=== PATIENT | female | born 1935 | race Caucasian/White ===

== ENCOUNTER 2016-06-29 13:02 | Emergency (ER) | payer OTHER, BC ==
[~2016-06-29] VITALS: Ht 157.5 cm; Wt 48.6 kg
[~2016-06-29 13:02] MED LIST: ACET-1256 PO; CALCTAB7 PO; CHLO10CA7 PO; CHOL100027 PO; DOCU-94 PO; LEVO88TA3 PO; ONDA8TAB6 PO; OXYC15TA89 PO; PROM25TA9 PO; RISE150T PO; SIMV10TA2 PO
[2016-06-29 13:10] VITALS: TEMP 36.4; Ht 157.5 cm; Wt 48.6 kg
[2016-06-29] MEDS ORDERED: ONDANSETRON INJ 2 MG/ML 2 ML VIAL IV STA (13:13)
[2016-06-29] MEDS ORDERED: MoRPHine SULFATE 2 MG/ML CARP IV STA ×3 (13:13→15:24)
[2016-06-29] MEDS ORDERED: LORA-741 PO (13:20)
[2016-06-29] MEDS ORDERED: LEVE500T13 PO (13:21)
[2016-06-29] MEDS ORDERED: ENOX80IN SQ (13:21)
[2016-06-29 13:42] LABS: BASO % 0.3 %; BASO ABS # 0.01 K/uL (0-0.2); COMPLETE YES; EOS % 0.9 %; HEMATOCRIT 37.9 % (37-47); IG% 0.6 %; LYMPH % 21.3 %; LYMPH ABS # 0.71 K/uL (1.2-3.4); MEAN CELL VOLUME 95.5 fL (80-100); MEAN CORPUSCULAR HGB CONC 34.6 g/dl (32-36); MEAN PLATELET VOLUME 8.7 fL (7.4-10.4); MONO % 7.5 %; NEUT % 69.4 %; PLATELET COUNT 110 K/uL (130-400); RED BLOOD COUNT 3.97 M/uL (4.2-5.4); WHITE BLOOD COUNT 3.34 K/uL (4.8-10.8)
[2016-06-29 14:07] LABS: PARTIAL THROMBOPLASTIN RATIO 0.7; PROTHROMBIN TIME (PATIENT) 11.1 SECONDS (9.0-12.0)
[2016-06-29 14:13] LABS: BUN/CREATININE RATIO 10.8 (10-20); CALCIUM 9.3 mg/dl (8.5-10.1); CREATININE 0.88 mg/dl (0.60-1.20); POTASSIUM 3.6 mmol/L (3.5-5.1)
--- NOTE | 2016-06-29 14:34 | DIAGNOSTIC IMAGING REPORT ---
RIGHT SHOULDER 2 VIEWS HISTORY: Right shoulder pain. COMPARISON: Right shoulder 10/10/2015. FINDINGS: There is impacted and mildly displaced right humeral neck fracture. No dislocation. No fractures within the right clavicle. The scapula appears intact. There is a grade II right acromioclavicular separation, unchanged. Soft tissues are unremarkable. No radiopaque foreign bodies. IMPRESSION: An impacted and mildly displaced right humeral neck fracture. Electronically signed by: Eron De Anda M.D. 06/29/2016 2:32 PM Dictated Date/Time: 06/29/2016 2:30 PM
--- NOTE | 2016-06-29 14:36 | DIAGNOSTIC IMAGING REPORT ---
RIGHT ELBOW 2 VIEWS HISTORY: Right elbow pain. Trauma. COMPARISON: Right elbow 02/07/2016. FINDINGS: There is extensive orthopedic hardware throughout the right elbow resulting in suboptimal evaluation. The hardware appears intact. There is also suboptimal positioning of the patient. No definite acute fracture or dislocation. Evaluation for an elbow effusion is nondiagnostic. Soft tissues are unremarkable. IMPRESSION: 1. Extensive orthopedic hardware and suboptimal patient positioning resulting in difficult evaluation of the right elbow. 2. No definite acute fracture or dislocation. 3. The hardware appears intact. Electronically signed by: Eron De Anda M.D. 06/29/2016 2:34 PM Dictated Date/Time: 06/29/2016 2:32 PM
[2016-06-29] MEDS ORDERED: OXYC1TAB3 PO (15:27)
--- NOTE | 2016-06-29 16:10 | DIAGNOSTIC IMAGING REPORT ---
RIGHT WRIST MIN 3 VIEWS ROUTINE CLINICAL HISTORY: Right wrist pain. Evaluate for fracture. COMPARISON: Right wrist radiographs February 07, 2016. FINDINGS: A distal right radial plate and screws are noted. Postoperative appearance is unchanged. There is no acute fracture. Deformity of the distal right ulna is chronic. Carpal bones are intact. Moderate degenerative changes are noted within several articulations of the right wrist. IMPRESSION: 1. No acute fracture or dislocation of the right wrist. 2. Stable postoperative findings following distal right radial internal fixation. Electronically signed by: Cruz Lake M.D. 06/29/2016 4:08 PM Dictated Date/Time: 06/29/2016 4:05 PM
[2016-06-29] MEDS ORDERED: OXYCODONE IR HOME PACK PO ONE (16:45)
[2016-06-29 16:52] VITALS: BP 169/72; PULSE 90; O2SAT 96
--- NOTE | 2016-06-29 19:35 | EMERGENCY ROOM VISIT NOTE ---
History Report prepared by Waldemar: Alyse Yoder Under the Supervision of: Dr. Gallo Hay M.D. First contact with patient: 13:05 Stated Complaint: FALL - R SHOULDER PAIN History of Present Illness The patient is a 80 year old female who presents to the Emergency Room with complaints of a sudden fall that occurred [employer]. The patient came to the ED via ambulance from home. The patient's states that the patient tripped over the dog bed. The patient states that she fell on her right side with her right arm extended. She is experiencing pain throughout her right arm. She denies hitting her head along with LOC, neck pain, back pain, chest pain, shortness of breath, abdominal pain, and hip or leg pain. She states that she has experienced previous problems with her right arm in the past. The patient is on Lovenox shots. Her states that she is receiving treatment for brain cancer. The patient went through chemotherapy and radiation for the brain cancer but it did not help so she started a new medication for the cancer. The patient denies any recent problems with weakness due to the brain cancer. She also denies any recent illness. Source of History: patient, family Onset: [employer] Position: other (generalized) Quality: other (fall) Timing: other (sudden) Associated Symptoms: No LOC, No SOB, No abdominal pain, No back pain, No chest pain, No neck pain Note: right arm pain, no hip or leg pain Review of Systems See HPI for pertinent positives & negatives. A total of 10 systems reviewed and were otherwise negative. Past Medical & Surgical Medical Problems: (1) Arm fracture, right (2) Elevated cholesterol (3) Hypothyroidism (4) Osteoarthritis (5) Osteoporosis (6) Swelling of left hand Surgical Problems: (1) S/P wrist surgery Old medical records were reviewed. Nurse's notes were reviewed and I agree with. Family History Patient reports no known family medical history. Social History Smoking Status: Never Smoker Alcohol Use: none Marital Status: Housing Status: lives with significant other Occupation Status: retired Current/Historical Medications Scheduled Calcium Carbonate-Vitamin D W/ (Caltrate 600 Plus), 1 TAB PO DAILY Cholecalciferol (Vitamin D 1000 Unit), 1,000 INTER.UNIT PO DAILY Enoxaparin (Lovenox), 80 MG SQ Q24H Levetiracetam (Keppra), 500 MG PO BID Levothyroxine Sodium (Levothyroxine Sodium), 88 MCG PO DAILY Risedronate Sodium (Actonel), 150 MG PO MONTHLY Simvastatin (Zocor), 10 MG PO QPM Scheduled PRN Lorazepam (Ativan), 0.5 MG PO DAILY PRN for Anxiety Oxycodone Ir (Roxicodone Ir), 1 TAB PO Q4H PRN for Severe Pain Allergies Coded Allergies: Lactose (Unverified Allergy, Unknown, ., 06/29/16) Penicillins (Unverified Allergy, Unknown, ., 06/29/16) Sulfamethoxazole w/Trimethoprim (Verified Adverse Reaction, Unknown, nausea, 06/29/16) allscripts Uncoded Allergies: ENTEX (Adverse Reaction, Unknown, nausea, 09/12/15) allscripts Physical Exam Vital Signs Date Time Temp Pulse Resp B/P Pulse Ox O2 Delivery O2 Flow Rate FiO2 06/29/16 16:52 90 18 169/72 96 06/29/16 15:35 82 20 152/77 94 Room Air 06/29/16 13:10 36.4 92 20 150/76 94 Room Air Physical Exam General: Well developed well nourished slender older female complaining of right shoulder pain but otherwise in no acute distress, breathing comfortably on room air. Normal speech HEENT: Normal cephalic atraumatic. Pupils are equal round and reactive to light. Scelera anicteric. Extraocular movements are intact. Oropharynx is pink with moist mucous membranes. No swelling of the mouth lips or tongue. Neck: Supple with a midline trachea. No meningeal signs or stiffness, no JVD or bruits. No Stridor. Chest: Clear to auscultation bilaterally. No wheezes or rhonchi. No increased work of breathing. Heart: regular rate and rhythm. Abdomen: Soft nontender, nondistended without rebound guarding or rigidity. Extremities: Right shoulder is swollen, scars on right elbow from previous trauma/surgery, normal motor sensation in right hand and wrist. No cyanosis or clubbing. No calf tenderness or assymetry Spine/Back. Non tender to palpation. No CVA tenderness Skin: Good turgor without rashes. Neurologic exam: Cranial nerves two through 12 are intact. Motor and sensation are intact and symmetrical throughout. Medical Decision & Procedures ER Provider Diagnostic Interpretation: X-ray results as stated below per interpretation by me and the radiologist: RIGHT SHOULDER 2 VIEWS IMPRESSION: An impacted and mildly displaced right humeral neck fracture. Electronically signed by: Eron De Anda M.D. 06/29/2016 2:32 PM Dictated Date/Time: 06/29/2016 2:30 PM RIGHT ELBOW 2 VIEWS IMPRESSION: 1. Extensive orthopedic hardware and suboptimal patient positioning resulting in difficult evaluation of the right elbow. 2. No definite acute fracture or dislocation. 3. The hardware appears intact. Electronically signed by: Eron De Anda M.D. 06/29/2016 2:34 PM Dictated Date/Time: 06/29/2016 2:32 PM RIGHT WRIST MIN 3 VIEWS ROUTINE IMPRESSION: 1. No acute fracture or dislocation of the right wrist. 2. Stable postoperative findings following distal right radial internal fixation. Electronically signed by: Cruz Lake M.D. 06/29/2016 4:08 PM Dictated Date/Time: 06/29/2016 4:05 PM Laboratory Results 06/29/16 13:32 Red Blood Count 3.97, Mean Corpuscular Volume 95.5, Mean Corpuscular Hemoglobin 33.0, Mean Corpuscular Hemoglobin Concent 34.6, Mean Platelet Volume 8.7, Neutrophils (%) (Auto) 69.4, Lymphocytes (%) (Auto) 21.3, Monocytes (%) (Auto) 7.5, Eosinophils (%) (Auto) 0.9, Basophils (%) (Auto) 0.3, Neutrophils # (Auto) 2.32, Lymphocytes # (Auto) 0.71, Monocytes # (Auto) 0.25, Eosinophils # (Auto) 0.03, Basophils # (Auto) 0.01 06/29/16 13:32 Test 06/29/16 13:32 White Blood Count 3.34 K/uL (4.8-10.8) Red Blood Count 3.97 M/uL (4.2-5.4) Hemoglobin 13.1 g/dL (12.0-16.0) Hematocrit 37.9 % (37-47) Mean Corpuscular Volume 95.5 fL (80-100) Mean Corpuscular Hemoglobin 33.0 pg (25-34) Mean Corpuscular Hemoglobin Concent 34.6 g/dl (32-36) Platelet Count 110 K/uL (130-400) Mean Platelet Volume 8.7 fL (7.4-10.4) Neutrophils (%) (Auto) 69.4 % Lymphocytes (%) (Auto) 21.3 % Monocytes (%) (Auto) 7.5 % Eosinophils (%) (Auto) 0.9 % Basophils (%) (Auto) 0.3 % Neutrophils # (Auto) 2.32 K/uL (1.4-6.5) Lymphocytes # (Auto) 0.71 K/uL (1.2-3.4) Monocytes # (Auto) 0.25 K/uL (0.11-0.59) Eosinophils # (Auto) 0.03 K/uL (0-0.5) Basophils # (Auto) 0.01 K/uL (0-0.2) RDW Standard Deviation 49.1 fL (36.4-46.3) RDW Coefficient of Variation 14.2 % (11.5-14.5) Immature Granulocyte % (Auto) 0.6 % Immature Granulocyte # (Auto) 0.02 K/uL (0.00-0.02) Prothrombin Time 11.1 SECONDS (9.0-12.0) Prothromb Time International Ratio 1.0 (0.9-1.1) Activated Partial Thromboplast Time 18.3 SECONDS (21.0-31.0) Partial Thromboplastin Ratio 0.7 Anion Gap 9.0 mmol/L (3-11) Est Creatinine Clear Calc Drug Dose 38.5 ml/min Estimated GFR () 71.4 Estimated GFR (Non- 61.6 BUN/Creatinine Ratio 10.8 (10-20) Calcium Level 9.3 mg/dl (8.5-10.1) Laboratory studies as stated above per my review. Medications Administered Medications (Trade) Dose Ordered Sig/Wilver Route Start Time Stop Time Status Last Admin Dose Admin Ondansetron HCl (Zofran Inj) 4 mg NOW STAT IV 06/29/16 13:13 06/29/16 13:17 DC 06/29/16 13:24 4 MG Morphine Sulfate (MoRPHine SULFATE INJ) 2 mg NOW STAT IV 06/29/16 13:13 06/29/16 13:17 DC 06/29/16 13:24 2 MG Morphine Sulfate (MoRPHine SULFATE INJ) 2 mg NOW STAT IV 06/29/16 14:09 06/29/16 14:10 DC 06/29/16 14:17 2 MG Morphine Sulfate (MoRPHine SULFATE INJ) 2 mg NOW STAT IV 06/29/16 15:24 06/29/16 15:25 DC 06/29/16 15:36 2 MG Oxycodone HCl (Roxicodone Immediate Rel 5MG Home Pack) 1 homepack UD ONCE PO 06/29/16 16:45 06/29/16 16:46 DC 06/29/16 16:45 1 HOMEPACK ED Course 1307: Past medical records reviewed. The patient was evaluated in room B9, and a complete history and physical examination were performed. 1313: Ordered Morphine Sulfate 2 mg IV, Zofran 4 mg IV 1340: I went to reassess the patient, but she was receiving x-rays at this time. 1350: I looked at the patient's x-rays and reassessed her. It looks like she has a fracture of her humeral neck. 1408: The nurse informed me that the patient would like more pain medicine. 1409: Ordered Morphine Sulfate 2 mg IV 1444: I reassessed the patient. She appears to be more comfortable. 1452: I discussed the patient's case with Dr. Garcia - Orthopedics. He recommended pain management and follow-up. 1523: Upon reevaluation, the patient is doing well. 1524: Ordered Morphine Sulfate 2 mg IV 1645: Ordered Oxycodone HCl 1 homepack PO 1636: Upon reevaluation, the patient is doing well. I discussed the results and treatment plan with her. She verbalized agreement of the treatment plan. The patient was discharged home. Medical Decision Differentials include, but are not limited to; elbow fracture, elbow dislocation , shoulder fracture, shoulder dislocation, contusion. This patient comes in as described above. She was placed in room B9. She is here for treatment and evaluation of right shoulder pain after falling. She is tender along her shoulder. She also has a lot of chronic pain in this arm related the elbow and wrist. She's had extensive surgery done by Dr. Urbina at [facility]. She says that she is scheduled to have additional surgery however they've had to hold off because she is currently on chemotherapy and cannot have surgery while she is on that. She has another 2 weeks of chemotherapy. This clearly was a mechanical fall. IV access was established. She was given morphine 2 mg IV and Zofran 4 g IV. She did receive additional doses of morphine while she was here she seemed to be doing much better she was placed in a sling with a strap. X-rays show a comminuted minimally displaced fracture of the humeral neck. It is not dislocated. The elbow and wrist do not show any acute fractures she does have chronic hardware. She was placed in a sling and this caused her wrist to have more pains so we did put her in a wrist lacer as well she seems comfortable with this. I think that this injury will unlikely needs surgery however I told her to follow up with orthopedist. I discussed the case with Dr. Garcia, who agrees. The patient has been seen by past by [facility] orthopedics and told her to follow- up with them in 1-2 days for recheck. They can also coordinate with her orthopedic surgeon and Deepthi if she were to need further care. The mainstay of care is going to be pain management. I did give her OxyIR 5 mg and given her weight, I told her start one half a pill every 4-6 hours. She should be extremely careful after taking as can make her drowsy and do not take with alcohol other stated medications. She could take up to 1 pill every 4-6 hours but again be very careful. She is to return if: numbness or weakness, worsening of symptoms, fever chills, any new problems or concerns . At this point, she has no evidence of neurovascular compromise or compartment syndrome. I encouraged her to follow up with her orthopedist in 1-2 days for recheck. The patient and the family are happy with the plan and she was discharged to home. Consults Time Called: [phone] Consulting Physician: Dr. Jose Young [facility] Returned Call: [phone] I discussed the patient's case with Dr. Jose Barbour. He recommended pain management and follow-up. Impression Primary Impression: Fracture of neck of humerus Scribe Attestation The scribe's documentation has been prepared under my direction and personally reviewed by me in its entirety. I confirm that the note above accurately reflects all work, treatment, procedures, and medical decision making performed by me. Departure Information Dispostion Home / Self-Care Prescriptions Oxycodone Ir (Roxicodone Ir) 5 Mg Tab 1 TAB PO Q4H Y for Severe Pain, #24 TAB Prov: Gallo Hay M.D. 06/29/16 Referrals Jack Gonzales M.D. (PCP) Forms HOME CARE DOCUMENTATION FORM, IMPORTANT VISIT INFORMATION Additional Instructions Rest. Drink plenty of fluids. Wear sling and swath Use OxyIR one half to one pill every 4-6 hours as needed OxyIR may make you drowsy be extremely careful getting up and down. Do not take with alcohol or sedating medications Follow up with [facility] orthopedics tomorrow and also your regular doctor. Return if: increasing pain, worsening of symptoms, numbness or weakness, any new problems or concerns.
[2016-07-13] MEDS ORDERED: CPR500 PO (08:58)
[2016-10-05] MEDS ORDERED: ZTHM250 PO (12:20)
[2016-10-05] MEDS ORDERED: GFNSR600 PO (12:20)
[2016-10-05] MEDS ORDERED: NUTR-977 PO (12:20)
[2016-10-05] MEDS ORDERED: VNTHFA/IN INH (12:20)
[2016-10-05] MEDS ORDERED: CEFD1CAP14 PO (12:20)
[2016-10-05] MEDS ORDERED: ENOX80IN SQ (12:20)
[2016-11-18] MEDS ORDERED: VTMB12 PO (09:52)
[2016-11-18] MEDS ORDERED: SRQ25 PO (09:52)
== END 2016-06-29 16:59 | disposition home or self-care (01) ==
LOC: EDBD 13:02 → C.EDB 13:04
DX: S42.211A Unspecified displaced fracture of surgical neck of right humerus, initial encounter for closed fracture (principal); W01.0XXA Fall on same level from slipping, tripping and stumbling without subsequent striking against object, initial encounter; Y92.019 Unspecified place in single-family (private) house as the place of occurrence of the external cause; C71.9 Malignant neoplasm of brain, unspecified; E78.00 Pure hypercholesterolemia, unspecified; E03.9 Hypothyroidism, unspecified; M81.0 Age-related osteoporosis without current pathological fracture; M19.90 Unspecified osteoarthritis, unspecified site; Z79.899 Other long term (current) drug therapy

== ENCOUNTER 2016-07-01 05:31 | Inpatient (IN) | payer OTHER, BC ==
[~2016-07-01] VITALS: Ht 162.6 cm; Wt 45.5 kg
[~2016-07-01 05:31] MED LIST changes: -ACET-1256 PO; -CHLO10CA7 PO; -DOCU-94 PO; +ENOX80IN SQ; +LEVE500T13 PO; +LORA-741 PO; -ONDA8TAB6 PO; -OXYC15TA89 PO; +OXYC1TAB3 PO; -PROM25TA9 PO
--- NOTE | 2016-07-01 05:47 | EMERGENCY ROOM VISIT NOTE ---
History Report prepared by Waldemar: Darlyn Zhao Under the Supervision of: Dr. Wilbert Franco M.D. First contact with patient: 05:32 Chief Complaint: SHOULDER PAIN Stated Complaint: SHOULDER PAIN History of Present Illness The patient is a 80 year old female who presents to the Emergency Room with complaints of severe and persistent weakness occurring today. The patient fell down 2 days ago and fractured her right humerus. Today, the patient had difficulty getting up from the toilet due to weakness. She also complains of severe pain in right shoulder and right arm. She took pain medicine with relief. The patient denies chest pain, shortness of breath, or any other complaints. Source of History: patient Onset: today Position: other (global) Symptom Intensity: severe Quality: other (weakness) Timing: other (persistent) Associated Symptoms: No SOB, No chest pain Review of Systems See HPI for pertinent positives & negatives. A total of 10 systems reviewed and were otherwise negative. Past Medical & Surgical Medical Problems: (1) Arm fracture, right (2) Elevated cholesterol (3) Hypothyroidism (4) Osteoarthritis (5) Osteoporosis (6) Swelling of left hand Surgical Problems: (1) S/P wrist surgery Family History Patient reports no known family medical history. Social History Smoking Status: Never Smoker Alcohol Use: none Marital Status: Housing Status: lives with significant other Occupation Status: retired Current/Historical Medications Scheduled Calcium Carbonate-Vitamin D W/ (Caltrate 600 Plus), 1 TAB PO DAILY Cholecalciferol (Vitamin D 1000 Unit), 1,000 INTER.UNIT PO DAILY Enoxaparin (Lovenox), 80 MG SQ Q24H Levetiracetam (Keppra), 500 MG PO BID Levothyroxine Sodium (Levothyroxine Sodium), 88 MCG PO DAILY Risedronate Sodium (Actonel), 150 MG PO MONTHLY Simvastatin (Zocor), 10 MG PO QPM Scheduled PRN Lorazepam (Ativan), 0.5 MG PO DAILY PRN for Anxiety Oxycodone Ir (Roxicodone Ir), 5 MG PO Q4H PRN for Severe Pain Allergies Coded Allergies: Lactose (Unverified Allergy, Unknown, ., 07/01/16) Penicillins (Unverified Allergy, Unknown, ., 07/01/16) Sulfamethoxazole w/Trimethoprim (Verified Adverse Reaction, Unknown, nausea, 07/01/16) allscripts Uncoded Allergies: ENTEX (Adverse Reaction, Unknown, nausea, 09/12/15) allscripts Physical Exam Vital Signs Date Time Temp Pulse Resp B/P Pulse Ox O2 Delivery O2 Flow Rate FiO2 07/01/16 07:42 93 18 160/73 96 Room Air 07/01/16 05:46 95 07/01/16 05:33 36.9 95 18 154/95 96 Room Air Physical Exam GENERAL: Patient is chronically unwell appearing and in no acute distress. HEENT: No acute trauma, normocephalic atraumatic, mucous membranes moist, no nasal congestion, no scleral icterus. NECK: No stridor, no adenopathy, no meningismus, trachea is midline. LUNGS: No dyspnea. Clear to auscultation and equal bilaterally. No wheeze, no rhonchi. HEART: Regular rate and rhythm. No murmurs, rubs, gallops appreciated. ABDOMEN: Soft, nontender, bowel sounds positive, no masses appreciated, no peritonitis. BACK: No midline tenderness, no CVA tenderness EXTREMITIES: Normal motion all extremities, no cyanosis, no edema. She has large amount of bruising of the right lower humerus, distal N/V intact. Pain with range of motion of the right shoulder. NEUROLOGIC: Alert and oriented, mildly confused but at baseline according to daughter, no acute motor or sensory deficits, no focal weakness, cranial nerves grossly intact. SKIN: No rash, no jaundice, no diaphoresis. Medical Decision & Procedures ER Provider Diagnostic Interpretation: X ray results and stated below per my interpretation and radiologist interpretation. CT results and stated below per my review and radiologist interpretation: CHEST ONE VIEW PORTABLE CLINICAL HISTORY: Generalized Weakness COMPARISON STUDY: 04/17/2014 FINDINGS: The patient is hyperinflated. The heart is normal in size. There is no failure. There is no focal pulmonary consolidation. There is a calcified granuloma the left lung base.[ No pleural effusions are visualized. There is widening of the right AC joint, likely postsurgical or posttraumatic. IMPRESSION: Hyperinflation. No acute findings. Electronically signed by: Corby Kee M.D. 07/01/2016 6:35 AM Dictated Date/Time: 07/01/2016 6:[address] HEAD WITHOUT CONTRAST (CT) CLINICAL HISTORY: Generalized Weakness COMPARISON STUDY: MRI dated 11/08/2015 TECHNIQUE: Axial CT of the brain is performed from the vertex to the skull base. IV contrast was not administered for this examination. CT DOSE: 614.27 mGy.cm FINDINGS: There are postsurgical changes of a right temporal craniotomy. There is a small right temporal extra-axial fluid collection which is felt to be chronic. There is right temporal lobe encephalomalacia. There is no CT evidence of acute cortical infarction. There is no midline shift. There is no acute hemorrhage. There is subtle right temporal lobe hypodensity. There are patchy white matter hypodensities likely on a small vessel basis. There is no evidence of pathologic ventricular dilatation. There is no evidence of acute sinusitis IMPRESSION: Interval resection of the right temporal lobe mass. There is right temporal lobe encephalomalacia and subtle hypodensity within the right temporal lobe. To evaluate for tumor recurrence, an MRI would be recommended in follow-up. Electronically signed by: Corby Kee M.D. 07/01/2016 6:38 AM Dictated Date/Time: 07/01/2016 6:35 AM Laboratory Results 07/01/16 06:00 Red Blood Count 3.25, Mean Corpuscular Volume 94.5, Mean Corpuscular Hemoglobin 33.2, Mean Corpuscular Hemoglobin Concent 35.2, Mean Platelet Volume 8.8, Neutrophils (%) (Auto) 75.3, Lymphocytes (%) (Auto) 9.5, Monocytes (%) (Auto) 13.3, Eosinophils (%) (Auto) 0.6, Basophils (%) (Auto) 0.2, Neutrophils # (Auto ) 3.95, Lymphocytes # (Auto) 0.50, Monocytes # (Auto) 0.70, Eosinophils # (Auto ) 0.03, Basophils # (Auto) 0.01 07/01/16 06:00 Test 07/01/16 06:00 07/01/16 07:35 White Blood Count 5.25 K/uL (4.8-10.8) Red Blood Count 3.25 M/uL (4.2-5.4) Hemoglobin 10.8 g/dL (12.0-16.0) Hematocrit 30.7 % (37-47) Mean Corpuscular Volume 94.5 fL (80-100) Mean Corpuscular Hemoglobin 33.2 pg (25-34) Mean Corpuscular Hemoglobin Concent 35.2 g/dl (32-36) Platelet Count 104 K/uL (130-400) Mean Platelet Volume 8.8 fL (7.4-10.4) Neutrophils (%) (Auto) 75.3 % Lymphocytes (%) (Auto) 9.5 % Monocytes (%) (Auto) 13.3 % Eosinophils (%) (Auto) 0.6 % Basophils (%) (Auto) 0.2 % Neutrophils # (Auto) 3.95 K/uL (1.4-6.5) Lymphocytes # (Auto) 0.50 K/uL (1.2-3.4) Monocytes # (Auto) 0.70 K/uL (0.11-0.59) Eosinophils # (Auto) 0.03 K/uL (0-0.5) Basophils # (Auto) 0.01 K/uL (0-0.2) RDW Standard Deviation 48.8 fL (36.4-46.3) RDW Coefficient of Variation 14.3 % (11.5-14.5) Immature Granulocyte % (Auto) 1.1 % Immature Granulocyte # (Auto) 0.06 K/uL (0.00-0.02) Prothrombin Time 10.7 SECONDS (9.0-12.0) Prothromb Time International Ratio 1.0 (0.9-1.1) Activated Partial Thromboplast Time 28.4 SECONDS (21.0-31.0) Partial Thromboplastin Ratio 1.1 Anion Gap 10.0 mmol/L (3-11) Est Creatinine Clear Calc Drug Dose 58.7 ml/min Estimated GFR () 102.6 Estimated GFR (Non- 88.5 BUN/Creatinine Ratio 13.3 (10-20) Calcium Level 9.0 mg/dl (8.5-10.1) Phosphorus Level 2.0 mg/dl (2.5-4.9) Magnesium Level 2.3 mg/dl (1.8-2.4) Total Bilirubin 0.5 mg/dl (0.2-1) Direct Bilirubin 0.1 mg/dl (0-0.2) Aspartate Amino Transf (AST/SGOT) 11 U/L (15-37) Alanine Aminotransferase (ALT/SGPT) 18 U/L (12-78) Alkaline Phosphatase 45 U/L (45-117) Total Creatine Kinase 40 U/L (26-192) Creatine Kinase MB < 0.5 ng/ml (0.5-3.6) Creatine Kinase MB Ratio (0-3.0) Troponin I < 0.015 ng/ml (0-0.045) Total Protein 6.1 gm/dl (6.4-8.2) Albumin 3.4 gm/dl (3.4-5.0) Lipase 63 U/L (73-393) Urine Color YELLOW Urine Appearance CLEAR (CLEAR) Urine pH 6.5 (4.5-7.5) Urine Specific [place] 1.005 (1.000-1.030) Urine Protein NEG (NEG) Urine Glucose (UA) NEG (NEG) Urine Ketones NEG (NEG) Urine Occult Blood NEG (NEG) Urine Nitrite NEG (NEG) Urine Bilirubin NEG (NEG) Urine Urobilinogen NEG (NEG) Urine Leukocyte Esterase NEG (NEG) Laboratory results as reviewed by me. Medications Administered Medications (Trade) Dose Ordered Sig/Wilver Route Start Time Stop Time Status Last Admin Dose Admin Morphine Sulfate (MoRPHine SULFATE INJ) 4 mg NOW STAT IV 07/01/16 07:45 07/01/16 07:46 DC 07/01/16 07:49 4 MG Ondansetron HCl (Zofran Inj) 4 mg NOW STAT IV 07/01/16 07:45 07/01/16 07:46 DC 07/01/16 07:49 4 MG ECG Indication: weakness Rate (beats per minute): 91 Rhythm: sinus rhythm Findings: 1st degree AV block, no acute ischemic change, no ectopy ED Course 0532: The patient was evaluated in room A10. A complete history and physical exam was performed. 0641: I discussed the patient's case with her family. Her does not feel that he can take care of her at home. 0645: I reevaluated the patient who is doing well. She currently does not have any complaints. She does not currently need anything for pain. Discussed results and treatment plan with the patient. She verbalized understanding and agreement with the treatment plan. The patient will be evaluated for further management. []: [facility] Medical Decision Differential: Sepsis, Infectious (UTI/Pneumonia/Meningitis/etc), Metabolic/ Electrolyte Abnormality, Cardiac, Hepatic, Endocrine, Toxicologic, Neurologic, amongst other pathologies entertained. 80 yr old female with resection of glioblastoma 7 months ago arrives with generalized weakness. She tripped and fell 2 days ago resulting in fractured right humerus. She has been unable to use arm since due to pain. N/v intact though large hematoma right upper arm. Mild anemia likely secondary to bruising. No black/bloody stools. As is on Lovenox went ahead with CT without any obvious bleeding noted, though change in glioblastoma may need MRI. She has no headache nor mental status change. Phos low though this may be due to chronic disease. No UTI. CXR OK. Stable and given Morphine for arm pain. I feel she likely needs further work-up and evaluation prior to placing in Rehab, if she would qualify for this as is is uncertain. As family can no care for her currently (they make this abundantly clear), it may be that she will need correction placement. Consults Time Called: 718 Consulting Physician: [facility] Hospitalist Service I discussed the patient's case with [facility] Hospitalist Service. Impression Primary Impression: Generalized weakness Additional Impressions: Failure to thrive, Hypophosphatemia, Humerus fracture Scribe Attestation The scribe's documentation has been prepared under my direction and personally reviewed by me in its entirety. I confirm that the note above accurately reflects all work, treatment, procedures, and medical decision making performed by me. Departure Information Dispostion Being Evaluated By Hospitalist Referrals Jack Gonzales M.D. (PCP) Patient Instructions A Signature Page, My [facility]
[2016-07-01 06:22] LABS: BASO % 0.2 %; BASO ABS # 0.01 K/uL (0-0.2); COMPLETE YES; EOS % 0.6 %; HEMATOCRIT 30.7 % (37-47); IG% 1.1 %; LYMPH % 9.5 %; MEAN CELL VOLUME 94.5 fL (80-100); MEAN CORPUSCULAR HEMOGLOBIN 33.2 pg (25-34); MEAN CORPUSCULAR HGB CONC 35.2 g/dl (32-36); MEAN PLATELET VOLUME 8.8 fL (7.4-10.4); MONO % 13.3 %; NEUT % 75.3 %; PLATELET COUNT 104 K/uL (130-400); RED BLOOD COUNT 3.25 M/uL (4.2-5.4); WHITE BLOOD COUNT 5.25 K/uL (4.8-10.8)
[2016-07-01] MEDS ORDERED: OXYC1TAB3 PO (06:26)
[2016-07-01 06:30] LABS: PARTIAL THROMBOPLASTIN RATIO 1.1; PROTHROMBIN TIME (PATIENT) 10.7 SECONDS (9.0-12.0)
--- NOTE | 2016-07-01 06:37 | DIAGNOSTIC IMAGING REPORT ---
CHEST ONE VIEW PORTABLE CLINICAL HISTORY: Generalized Weakness COMPARISON STUDY: 04/17/2014 FINDINGS: The patient is hyperinflated. The heart is normal in size. There is no failure. There is no focal pulmonary consolidation. There is a calcified granuloma the left lung base.[ No pleural effusions are visualized. There is widening of the right AC joint, likely postsurgical or posttraumatic. IMPRESSION: Hyperinflation. No acute findings. Electronically signed by: Corby Kee M.D. 07/01/2016 6:35 AM Dictated Date/Time: 07/01/2016 6:34 AM
--- NOTE | 2016-07-01 06:40 | DIAGNOSTIC IMAGING REPORT ---
CT HEAD WITHOUT CONTRAST (CT) CLINICAL HISTORY: Generalized Weakness COMPARISON STUDY: MRI dated 11/08/2015 TECHNIQUE: Axial CT of the brain is performed from the vertex to the skull base. IV contrast was not administered for this examination. CT DOSE: 614.27 mGy.cm FINDINGS: There are postsurgical changes of a right temporal craniotomy. There is a small right temporal extra-axial fluid collection which is felt to be chronic. There is right temporal lobe encephalomalacia. There is no CT evidence of acute cortical infarction. There is no midline shift. There is no acute hemorrhage. There is subtle right temporal lobe hypodensity. There are patchy white matter hypodensities likely on a small vessel basis. There is no evidence of pathologic ventricular dilatation. There is no evidence of acute sinusitis IMPRESSION: Interval resection of the right temporal lobe mass. There is right temporal lobe encephalomalacia and subtle hypodensity within the right temporal lobe. To evaluate for tumor recurrence, an MRI would be recommended in follow-up. Electronically signed by: Corby Kee M.D. 07/01/2016 6:38 AM Dictated Date/Time: 07/01/2016 6:35 AM
[2016-07-01 07:00] LABS: ALT/SGPT 18 U/L (12-78); BLOOD UREA NITROGEN 7 mg/dl (7-18); BUN/CREATININE RATIO 13.3 (10-20); CARBON DIOXIDE 27 mmol/L (21-32); CHLORIDE 104 mmol/L (98-107); CREATININE 0.54 mg/dl (0.60-1.20); GLUCOSE 114 mg/dl (70-99); MAGNESIUM 2.3 mg/dl (1.8-2.4); POTASSIUM 3.4 mmol/L (3.5-5.1); SODIUM 141 mmol/L (136-145)
[2016-07-01 07:09] LABS: ALKALINE PHOSPHATASE 45 U/L (45-117); AST/SGOT 11 U/L (15-37)
[2016-07-01] MEDS ORDERED: ONDANSETRON INJ 2 MG/ML 2 ML VIAL IV STA (07:45)
[2016-07-01] MEDS ORDERED: MoRPHine SULFATE 4 MG/ML 1 ML CARP\\VIAL IV STA (07:45)
[2016-07-01] MEDS ORDERED: LEVOTHYROXINE 88 MCG TAB PO STA (07:45)
[2016-07-01 07:49] LABS: MANUAL MICROSCOPIC REQUIRED? NO; REVIEW REQ? NO; URINE APPEARANCE CLEAR (CLEAR); URINE BILIRUBIN NEG (NEG); URINE COLOR YELLOW; URINE NITRITE NEG (NEG); URINE PH 6.5 (4.5-7.5); URINE SPECIFIC GRAVITY 1.005 (1.000-1.030); UROBILINOGEN NEG (NEG); ZZUR CULT IF INDIC CLEAN CATCH NO
[2016-07-01] MEDS ORDERED: POTASSIUM PHOS 3 MMOL/1 ML INFUSION IV STA (08:29)
[2016-07-01 08:49] VITALS: O2SAT 96; Ht 162.6 cm; Wt 45.5 kg
--- NOTE | 2016-07-01 09:15 | History and Physical ---
History & Physical Date & Time of Service: Jul 01, 2016 at 09:00 Chief Complaint: Shoulder Pain Primary Care Physician: Jack Gonzales M.D. History of Present Illness Source: patient, family, clinic records, hospital records This patient is a pleasant 80-year-old female that was brought to emergency department this morning for significant weakness. The patient's could not get her out of bed. The patient has had difficulty ambulating and has fallen over the last 3 days. The patient fell 2 days ago onto her right shoulder. She reportedly tripped. It was not a syncopal episode. She unfortunately sustained a right humerus fracture. She has not yet seen an orthopedic doctor. The patient does complain of pain in the right shoulder. Otherwise, she has no complaints. She denies any chest pain, heart palpitations , shortness of breath or dizziness. She denies any changes in vision. The patient has a history of a glioblastoma in the right temporal region. This was resected in October 2015. The patient's family does note that she is transiently confused. They tell me that currently her mental state is baseline. The patient's does note that the falls have gotten much worse over the last 2 days. The patient follows with an oncologist in [place]. She had a repeat MRI done at the end of May that did not show any disease progression. Of note, emergency department workup reveals a drop in her H&H from 2 days ago. Hemoglobin went from 13-10.8. The patient denies any dark or bloody stools. The patient's family is unable to verify this. The patient is on Lovenox injections for a history of a PE. Past Medical/Surgical History Medical Problems: (1) Arm fracture, right Status: Resolved (2) Elevated cholesterol Status: Chronic (3) Hypothyroidism Status: Chronic (4) Osteoarthritis Status: Chronic (5) Osteoporosis Status: Chronic (6) Swelling of left hand Status: Resolved History of right temporal glioblastoma status post resection in October 2015 Hypothyroidism Pulmonary embolus-diagnosed on 03/21/2016. On Lovenox injections Questionable history of GI bleed Surgical Problems: (1) S/P wrist surgery Status: Resolved Glioblastoma resection Family History Patient reports no known family medical history. Family history of coronary artery disease Social History Smoking Status: Never Smoker Alcohol Use: none Marital Status: Housing status: lives with family Occupational Status: retired Immunizations History of Influenza Vaccine: No History of Tetanus Vaccine?: Yes History of Pneumococcal: No History of Hepatitis B Vaccine: No Multi-Drug Resistant Organisms History of MDRO: No Allergies Coded Allergies: Lactose (Unverified Allergy, Unknown, ., 07/01/16) Penicillins (Unverified Allergy, Unknown, ., 07/01/16) Sulfamethoxazole w/Trimethoprim (Verified Adverse Reaction, Unknown, nausea, 07/01/16) allscripts Uncoded Allergies: ENTEX (Adverse Reaction, Unknown, nausea, 09/12/15) allscripts Home Medications Scheduled Calcium Carbonate-Vitamin D W/ (Caltrate 600 Plus), 1 TAB PO DAILY Cholecalciferol (Vitamin D 1000 Unit), 1,000 INTER.UNIT PO DAILY Enoxaparin (Lovenox), 80 MG SQ Q24H Levetiracetam (Keppra), 500 MG PO BID Levothyroxine Sodium (Levothyroxine Sodium), 88 MCG PO DAILY Risedronate Sodium (Actonel), 150 MG PO MONTHLY Simvastatin (Zocor), 10 MG PO QPM Scheduled PRN Lorazepam (Ativan), 0.5 MG PO DAILY PRN for Anxiety Oxycodone Ir (Roxicodone Ir), 5 MG PO Q4H PRN for Severe Pain Review of Systems 10 system review performed and negative unless noted in HPI or below Physical Exam Vital Signs Date Time Temp Pulse Resp B/P Pulse Ox O2 Delivery O2 Flow Rate FiO2 07/01/16 07:42 93 18 160/73 96 Room Air 07/01/16 05:46 95 07/01/16 05:33 36.9 95 18 154/95 96 Room Air General Appearance: no apparent distress Head: normocephalic Eyes: EOMI Neck: no JVD Respiratory/Chest: lungs clear Cardiovascular: regular rate, rhythm Abdomen/GI: normal bowel sounds, non tender, soft Extremities/Musculoskelatal: no calf tenderness, no pedal edema, + pertinent finding (right arm in a sling. Significant ecchymosis noted proximal to the elbow. Radial pulse intact. Decreased tennis net maker strength noted in the right hand.) Neurologic/Psych: alert (alert and responds to questions sometimes appropriately. Some weakness noted with tennis net maker strength on the right hand. Overall weakness noted equally in the legs ) Skin: warm/dry Diagnostics Laboratory Results Results Past 24 Hours Test 07/01/16 06:00 07/01/16 07:35 07/01/16 08:34 Range/Units White Blood Count 5.25 4.8-10.8 K/uL Red Blood Count 3.25 4.2-5.4 M/uL Hemoglobin 10.8 12.0-16.0 g/dL Hematocrit 30.7 37-47 % Mean Corpuscular Volume 94.5 80-100 fL Mean Corpuscular Hemoglobin 33.2 25-34 pg Mean Corpuscular Hemoglobin Concent 35.2 32-36 g/dl Platelet Count 104 130-400 K/uL Mean Platelet Volume 8.8 7.4-10.4 fL Neutrophils (%) (Auto) 75.3 % Lymphocytes (%) (Auto) 9.5 % Monocytes (%) (Auto) 13.3 % Eosinophils (%) (Auto) 0.6 % Basophils (%) (Auto) 0.2 % Neutrophils # (Auto) 3.95 1.4-6.5 K/uL Lymphocytes # (Auto) 0.50 1.2-3.4 K/uL Monocytes # (Auto) 0.70 0.11-0.59 K/uL Eosinophils # (Auto) 0.03 0-0.5 K/uL Basophils # (Auto) 0.01 0-0.2 K/uL RDW Standard Deviation 48.8 36.4-46.3 fL RDW Coefficient of Variation 14.3 11.5-14.5 % Immature Granulocyte % (Auto) 1.1 % Immature Granulocyte # (Auto) 0.06 0.00-0.02 K/uL Prothrombin Time 10.7 9.0-12.0 SECONDS Prothromb Time International Ratio 1.0 0.9-1.1 Activated Partial Thromboplast Time 28.4 21.0-31.0 SECONDS Partial Thromboplastin Ratio 1.1 Sodium Level 141 136-145 mmol/L Potassium Level 3.4 3.5-5.1 mmol/L Chloride Level 104 98-107 mmol/L Carbon Dioxide Level 27 21-32 mmol/L Anion Gap 10.0 3-11 mmol/L Blood Urea Nitrogen 7 7-18 mg/dl Creatinine 0.54 0.60-1.20 mg/dl Est Creatinine Clear Calc Drug Dose 58.7 ml/min Estimated GFR () 102.6 Estimated GFR (Non- 88.5 BUN/Creatinine Ratio 13.3 10-20 Random Glucose 114 70-99 mg/dl Calcium Level 9.0 8.5-10.1 mg/dl Phosphorus Level 2.0 2.5-4.9 mg/dl Magnesium Level 2.3 1.8-2.4 mg/dl Total Bilirubin 0.5 0.2-1 mg/dl Direct Bilirubin 0.1 0-0.2 mg/dl Aspartate Amino Transf (AST/SGOT) 11 15-37 U/L Alanine Aminotransferase (ALT/SGPT) 18 12-78 U/L Alkaline Phosphatase 45 45-117 U/L Total Creatine Kinase 40 26-192 U/L Creatine Kinase MB < 0.5 0.5-3.6 ng/ml Creatine Kinase MB Ratio 0-3.0 Troponin I < 0.015 0-0.045 ng/ml Total Protein 6.1 6.4-8.2 gm/dl Albumin 3.4 3.4-5.0 gm/dl Lipase 63 73-393 U/L Urine Color YELLOW Urine Appearance CLEAR CLEAR Urine pH 6.5 4.5-7.5 Urine Specific [place] 1.005 1.000-1.030 Urine Protein NEG NEG Urine Glucose (UA) NEG NEG Urine Ketones NEG NEG Urine Occult Blood NEG NEG Urine Nitrite NEG NEG Urine Bilirubin NEG NEG Urine Urobilinogen NEG NEG Urine Leukocyte Esterase NEG NEG Diagnostic Radiology CT HEAD WITHOUT CONTRAST (CT) CLINICAL HISTORY: Generalized Weakness COMPARISON STUDY: MRI dated 11/08/2015 TECHNIQUE: Axial CT of the brain is performed from the vertex to the skull base. IV contrast was not administered for this examination. CT DOSE: 614.27 mGy.cm FINDINGS: There are postsurgical changes of a right temporal craniotomy. There is a small right temporal extra-axial fluid collection which is felt to be chronic. There is right temporal lobe encephalomalacia. There is no CT evidence of acute cortical infarction. There is no midline shift. There is no acute hemorrhage. There is subtle right temporal lobe hypodensity. There are patchy white matter hypodensities likely on a small vessel basis. There is no evidence of pathologic ventricular dilatation. There is no evidence of acute sinusitis IMPRESSION: Interval resection of the right temporal lobe mass. There is right temporal lobe encephalomalacia and subtle hypodensity within the right temporal lobe. To evaluate for tumor recurrence, an MRI would be recommended in follow-up. Patient: NORMAN CHANG Address1: [address] [facility] Rec: [id number] Address2: Acct ID: [id number] [facility] Zip: [place] [address] Date: 1935 Sex: F Room/Bed: Ref Phy: Jack Gonzales M.D. SC: [place] Att Phy: Report #: [id number] Jena Phy: Jack Gonzales M.D. Test: [id number] Admit Phy: Mold Maker Plastic Molds: TANYA Interpreting Phy: Corby Kee M.D. Diagnosis: SHOULDER PAIN Ordering Phy: Wilbert Franco M.D. Service Date: 07/01/16 Admit Date: 07/01/16 MNE: [id number] CONF: DICTATED BY: Corby Kee M.D.]] CC: Wilbert Franco M.D. Shannon, Dennis, M.D. Endcc: [~ rep ct add3]] CHEST ONE VIEW PORTABLE CLINICAL HISTORY: Generalized Weakness COMPARISON STUDY: 04/17/2014 FINDINGS: The patient is hyperinflated. The heart is normal in size. There is no failure. There is no focal pulmonary consolidation. There is a calcified granuloma the left lung base.[ No pleural effusions are visualized. There is widening of the right AC joint, likely postsurgical or posttraumatic. IMPRESSION: Hyperinflation. No acute findings. Electronically signed by: Corby Kee M.D. 07/01/2016 6:35 AM Dictated Date/Time: 07/01/2016 6:34 AM EKG Normal sinus rhythm 91 bpm First-degree AV block No acute ischemic changes noted Impression Assessment and Plan 80-year-old female with a history of glioblastoma status post resection 2016 presents to the emergency department with profound weakness and ambulatory dysfunction. Acute humerus fracture Weakness/ambulatory dysfunction -Admit to medical floor -We'll try to obtain results of most recent MRI done at the end of May in [place].? Disease progression causing the symptoms. If this is the case, possibly palliative care should be considered -PT/OT -Patient will need placement. Family seems to be helpful for rehabilitation. Anemia-hemoglobin dropped from 13-10 today. There are no reports of dark stool. I have a lower suspicion of GI bleed. She does have significant ecchymosis associated with the right humerus fracture. This is likely the source of blood loss -Monitor H&H Right humerus fracture -Orthopedic consult-Dr. Garcia History of PE -Continue Lovenox 80 mg subcutaneous daily Hypothyroidism -Continue Synthroid 88 g daily -Check TSH Questionable history of a GI bleed -Continue pantoprazole 40 mg daily -Continue to monitor H&H Hypokalemia/hypophosphatemia -Replete DVT prophylaxis -Lovenox as noted above -TEDS, SCDs CODE STATUS -LEVEL I FULL CODE i personally examined pt and verified all chap[place] points w A [place] PAC weak, L arm pain. very difficult historian - when asking about her recent PO intake she then quickly moves to being fixated on talking about a cancer surgeon she's seen at [facility]. vitals noted R arm in sling, (+) bruising no pallor a/p weakness - probably from pain + blood loss + ?poor PO intake - work on underlying causes, PT/OT evals arm fx - ortho eval otherwise as above Level of Care Med/Surg Resuscitation Status FULL RESUSCITATION VTE Prophylaxis VTE Risk Assessment Done? Y/N: Yes Risk Level: Low Given or contraindicated: Enoxaparin (Lovenox)SQ, T.E.D. Stockings, SCD's
[2016-07-01] MEDS ORDERED: ONDANSETRON INJ 2 MG/ML 2 ML VIAL IV PRN (09:30)
[2016-07-01] MEDS ORDERED: OXYCODONE HCL IR 5 MG TAB (IMMEDIATE RELEASE) PO PRN (09:30)
[2016-07-01] MEDS ORDERED: LORAZEPAM 0.5 MG TAB PO PRN (09:30)
[2016-07-01 10:02] VITALS: O2SAT 95
[2016-07-01 11:03] VITALS: BP 162/80; PULSE 94; TEMP 36.7; O2SAT 95
[2016-07-01] MEDS ORDERED: POTASSIUM PHOSPHATE INJ 15 MMOL in SODIUM CHLORIDE 0.9% 250ML 250 ML IV SCH (11:30)
[2016-07-01 15:17] VITALS: BP 134/70; PULSE 92; TEMP 37; O2SAT 96
[2016-07-01] MEDS: ENOXAPARIN 80 MG/0.8 ML SYR SQ SCH (15:25)
[2016-07-01] MEDS ORDERED: INFLUENZA ADMINISTRATION CHARGE ONE (16:00)
[2016-07-01] MEDS ORDERED: INFLUENZA VIRUS QUAD VACCINE 0.5 ML SYR IM. ONE (16:00)
[2016-07-01] MEDS: ACETAMINOPHEN 325 MG TAB PO PRN ×2 (16:24→20:33)
--- NOTE | 2016-07-01 17:16 | CONSULTATION REPORT ---
DATE OF CONSULTATION: 07/01/2016 CHIEF COMPLAINT: Right proximal humerus fracture. HISTORY OF PRESENT ILLNESS: The patient is an 80-year-old right hand dominant female who we were consulted for, for evaluation of a proximal humerus fracture. She apparently had a fall 2 days ago, was seen in the [facility] ER, had x-rays diagnosed with a proximal humerus fracture. She was placed in an arm sling. Today apparently, her cannot get her out of bed, she was admitted here to [facility] today. She is complaining of right shoulder pain. She also has some right elbow pain and swelling. She has had a history of an ORIF of the right distal humerus fracture as well as distal radius fracture. The distal humerus fracture was done at [place] she said and she said she was told there were some screws or pins loose and she was told to follow up with [place] regarding possible further surgery on her elbow. No other orthopedic complaints at this time. PAST MEDICAL HISTORY INCLUDING SURGERIES, FAMILY HISTORY, SOCIAL HISTORY, MEDICATIONS AND ALLERGIES: Reviewed in her chart. Please refer to her admission H\T\P for completeness. PHYSICAL EXAMINATION: Elderly female in no distress. She is sitting in her chair at bedside today. She is in an arm sling/immobilizer right now. She is tender to palpation around the proximal humerus. We did not do any range of motion of her right humerus or elbow. She does have some swelling and tenderness around the elbow as well. No tenderness at her wrist, no swelling in her wrist. She is able to flex and extend her thumb and fingers appropriately. Sensation is intact to touch, brisk refill, palpable radial pulse. IMAGING DATA: X-rays were reviewed, they actually from her previous visit from 06/29/2016. The x-rays of her shoulder show impacted right proximal humerus fracture, no dislocation. We reviewed x-rays of her wrist and elbow. She does have hardware from previous ORIF of the distal radius and also a hardware from a previous ORIF of the elbow with an olecranon osteotomy. Do not see any acute changes or abnormalities such as fracture on her elbow x-rays. IMPRESSION: An 80-year-old female with a history of a glioblastoma with a right impacted proximal humerus fracture. PLAN: She was seen and examined by Dr. Ledbetter today as well. We talked about treatment for her humerus fracture with her and her today. We do not recommend any surgical intervention, would treat this conservatively with an arm sling immobilizer. She will need to be in that for about a month. Will plan to see her back in clinic in about 2 weeks for repeat x-rays of her shoulder. She said that she was supposed to be following up with [place] with her orthopedic surgeon in [place] regarding her right elbow, sometime soon. If she would like she can certainly follow up with them regarding her shoulder as well, but again will leave that up to her. Would be happy to see her back in 2 weeks for repeat x-rays of her shoulder. HUEY
[2016-07-01] MEDS: LEVETIRACETAM 500 MG TAB PO SCH (20:33)
[2016-07-01] MEDS: SIMVASTATIN 10 MG TAB PO SCH (20:33)
[2016-07-01 23:14] VITALS: BP 124/78; PULSE 80; TEMP 36.6; O2SAT 98
[2016-07-02] MEDS: ACETAMINOPHEN 325 MG TAB PO PRN ×3 (00:25→22:37)
[2016-07-02 01:43] VITALS: BP_SYST 115; BP_SYST 131; BP_SYST 150; BP_DIAS 61; BP_DIAS 72; BP_DIAS 77; PULSE 87; PULSE 91; PULSE 97
[2016-07-02] MEDS: LEVOTHYROXINE 88 MCG TAB PO SCH (05:31)
[2016-07-02] MEDS: LEVETIRACETAM 500 MG TAB PO SCH ×2 (08:13→20:53)
[2016-07-02] MEDS: PANTOprazole SOD 40 MG TAB PO SCH (08:13)
[2016-07-02] MEDS: CHOLECALCIFEROL 1000 INTER.UNIT TAB PO SCH (08:13)
[2016-07-02] MEDS: SODIUM CHLORIDE 0.9% 1000ML 1,000 ML IV SCH ×2 (08:13→20:53)
[2016-07-02] MEDS: ENOXAPARIN 80 MG/0.8 ML SYR SQ SCH (08:14)
[2016-07-02] MEDS: CALCIUM 600MG + VIT D 400 IU TAB PO SCH (08:14)
--- NOTE | 2016-07-02 08:17 | Clinical Documentation Query ---
CLINICAL DOCUMENTATION QUERY 80-y/o who presents with hx of glioblastoma, recent right humerus fx, and osteoporosis. She noted to be weak, chronically ill appearing, and diagnosed from ED with failure to thrive. Since 11/08/15 she has lost 10.1 KG's. In your clinical opinion is this patient being managed for: ( ) Severe protein-calorie malnutrition in setting of elderly female s/p Glioblastoma resection. ( ) Other explanation of clinical findings (Please Explain) ( ) Unable to determine (Please Define) ( ) Need to Discuss ( x ) Not Agree - albumin was 3.4, and she actually didn't clinically appear malnourished; thanks The medical record reflects the following clinical findings, treatment, and risk factors. Clinical Indicators: Weak, Chronically ill appearing, failure to thrive. Noted 10.1 Kg weight lost since 11/08/15 (18% of starting BW) BMI now 17.2. Awaiting dietaries input. Treatment: PT/OT consult, Regular diet, Dietary refer triggered by nursing. Risk Factors: Age, Chronic illness, Acute femur fracture Please clarify and document your clinical opinion in the progress notes and discharge summary. Terms such as "probable", "suspected", "likely", "questionable", "possible", or "still to be ruled out" are acceptable. IF IN AGREEMENT, YOU MUST DOCUMENT ABOVE DIAGNOSTIC STATEMENT IN DAILY PROGRESS NOTES AND DISCHARGE SUMMARY. This document is not part of the patient's record. Malnutrition; A Quick Reference ToolAs previously noted by KATIE, albumin and pre-albumin are not considered reliable indicators of a patient's nutritional status; the patient's entire clinical presentation should be considered. As such, KATIE proposes a review of the ASPEN 2012 Characteristics Recommended for the Identification and Documentation of Adult Malnutrition/Undernutrition. ASPEN recommends the identification and documentation of 2 of the following 6 characteristics of malnutrition: energy intake, weight loss, body fat, muscle mass, fluid accumulation, record keeper strength. Further, ASPEN has recommended adjustments in the characteristics based on the context of the malnutrition, e.g., acute illness/injury, chronic illness, social/environmental circumstance. Malnutrition Characteristics (2 of 6) in Acute Illness/Injury CHARACTERISTICS MODERATE MALNUTRITION SEVERE MALNUTRITION ENERGY INTAKE <75% of estimated energyrequirement for >7 days <50% of estimated energyrequirement for >5 days WEIGHT LOSS 1-2%/1 week 5%/1 month 7.5%/3 months >1-2%/1 week >5%/1 month >7.5%/3 months BODY FAT*loss of SQ fat from the orbits,triceps, or fat overlying the ribs MILD MODERATE MUSCLE MASS*muscle wasting at the temples,clavicles, shoulders, interosseousspaces,scapula, thigh, calf MILD MODERATE FLUID ACCUMULATION*localized or generalized edemaof the extremities, vulva, scrotumweight loss may be masked byedema MILD MODERATE-SEVERE SAMPLE PREP TECHNICIAN STRENGTH N/A measurably decreased perthe device's standards Malnutrition Characteristics (2 of 6) in Chronic Illness CHARACTERISTICS MODERATE MALNUTRITION SEVERE MALNUTRITION ENERGY INTAKE <75% of estimated energyrequirement for >1 month <75% of estimated energyrequirement for >1 month WEIGHT LOSS 5%/1 month 7.5%/3 months 10%/6 months 20%/1 year > 5%/1 month >7.5%/3 months >10%/6 months >20%/1 year BODY FAT*loss of SQ fat from the orbits,triceps, or fat overlying the ribs MILD SEVERE MUSCLE MASS*muscle wasting at the temples,clavicles, shoulders, interosseousspaces,scapula, thigh, calf MILD SEVERE FLUID ACCUMULATION*localized or generalized edemaof the extremities, vulva, scrotumweight loss may be masked byedema MILD SEVERE SAMPLE PREP TECHNICIAN STRENGTH N/A measurably decreased perthe device's standards Thank You, Brent White, RN [phone]
[2016-07-02 08:53] LABS: BASO % 0.3 %; BASO ABS # 0.01 K/uL (0-0.2); COMPLETE YES; EOS % 2.2 %; HEMATOCRIT 27.4 % (37-47); IG% 0.6 %; LYMPH % 16.2 %; LYMPH ABS # 0.51 K/uL (1.2-3.4); MEAN CELL VOLUME 96.1 fL (80-100); MEAN CORPUSCULAR HGB CONC 34.3 g/dl (32-36); MEAN PLATELET VOLUME 8.7 fL (7.4-10.4); MONO % 15.9 %; NEUT % 64.8 %; PLATELET COUNT 100 K/uL (130-400); RED BLOOD COUNT 2.85 M/uL (4.2-5.4); WHITE BLOOD COUNT 3.15 K/uL (4.8-10.8)
[2016-07-02 09:18] LABS: BUN/CREATININE RATIO 17.5 (10-20); CALCIUM 8.7 mg/dl (8.5-10.1); CREATININE 0.61 mg/dl (0.60-1.20); MAGNESIUM 2.4 mg/dl (1.8-2.4); POTASSIUM 3.9 mmol/L (3.5-5.1)
[2016-07-02 10:23] VITALS: BP_SYST 149; BP_SYST 153; BP_SYST 157; BP_DIAS 72; BP_DIAS 79; BP_DIAS 83; PULSE 79; PULSE 82; TEMP 36.8; O2SAT 99
--- NOTE | 2016-07-02 11:18 | Hospitalist Progress Note ---
Hospitalist Progress Note Date of Service Jul 02, 2016. (Christal Umanzor PA-C) Subjective Pt evaluation today including: conversation w/ patient, physical exam, chart review, lab review, review of inpatient medication list Patient reports mild to moderate shoulder pain. Denies any other symptoms. No chest pain, shortness of breath, dizziness, heart palpitations, nausea or vomiting. No abdominal pain. Additional Comments: 6 system review negative. Please see pertinent positives in the history of present illness section. (Christal Umanzor PA-C) Objective Vital Signs Date Time Temp Pulse Resp B/P Pulse Ox O2 Delivery O2 Flow Rate FiO2 07/02/16 10:23 36.8 79 19 153/79 99 Room Air 82 157/83 82 149/72 07/02/16 07:26 Room Air 07/02/16 01:43 87 150/77 91 131/61 97 115/72 07/01/16 23:14 36.6 80 15 124/78 98 Room Air 07/01/16 20:00 Room Air 07/01/16 15:17 37.0 92 16 134/70 96 Room Air (Christal Umanzor PA-C) Physical Exam General Appearance: no apparent distress Eyes: EOMI Neck: no JVD Respiratory/Chest: lungs clear Cardiovascular: regular rate, rhythm Abdomen: normal bowel sounds, non tender, soft Extremities: non-tender, no pedal edema, + pertinent finding (right upper extremity in a sling.) Neurologic/Psychiatric: alert (still alert and oriented to person only) Skin: warm/dry (Christal Umanzor PA-C) Laboratory Results 07/02/16 08:12 Red Blood Count 2.85, Mean Corpuscular Volume 96.1, Mean Corpuscular Hemoglobin 33.0, Mean Corpuscular Hemoglobin Concent 34.3, Mean Platelet Volume 8.7, Neutrophils (%) (Auto) 64.8, Lymphocytes (%) (Auto) 16.2, Monocytes (%) (Auto) 15.9, Eosinophils (%) (Auto) 2.2, Basophils (%) (Auto) 0.3, Neutrophils # (Auto ) 2.04, Lymphocytes # (Auto) 0.51, Monocytes # (Auto) 0.50, Eosinophils # (Auto ) 0.07, Basophils # (Auto) 0.01 07/02/16 08:12 Test 07/02/16 08:12 White Blood Count 3.15 K/uL (4.8-10.8) Red Blood Count 2.85 M/uL (4.2-5.4) Hemoglobin 9.4 g/dL (12.0-16.0) Hematocrit 27.4 % (37-47) Mean Corpuscular Volume 96.1 fL (80-100) Mean Corpuscular Hemoglobin 33.0 pg (25-34) Mean Corpuscular Hemoglobin Concent 34.3 g/dl (32-36) Platelet Count 100 K/uL (130-400) Mean Platelet Volume 8.7 fL (7.4-10.4) Neutrophils (%) (Auto) 64.8 % Lymphocytes (%) (Auto) 16.2 % Monocytes (%) (Auto) 15.9 % Eosinophils (%) (Auto) 2.2 % Basophils (%) (Auto) 0.3 % Neutrophils # (Auto) 2.04 K/uL (1.4-6.5) Lymphocytes # (Auto) 0.51 K/uL (1.2-3.4) Monocytes # (Auto) 0.50 K/uL (0.11-0.59) Eosinophils # (Auto) 0.07 K/uL (0-0.5) Basophils # (Auto) 0.01 K/uL (0-0.2) RDW Standard Deviation 51.3 fL (36.4-46.3) RDW Coefficient of Variation 14.7 % (11.5-14.5) Immature Granulocyte % (Auto) 0.6 % Immature Granulocyte # (Auto) 0.02 K/uL (0.00-0.02) Anion Gap 9.0 mmol/L (3-11) Est Creatinine Clear Calc Drug Dose 52.0 ml/min Estimated GFR () 98.5 Estimated GFR (Non- 85.0 BUN/Creatinine Ratio 17.5 (10-20) Calcium Level 8.7 mg/dl (8.5-10.1) Magnesium Level 2.4 mg/dl (1.8-2.4) Last 24 Hours Test 07/02/16 08:12 White Blood Count 3.15 K/uL Red Blood Count 2.85 M/uL Hemoglobin 9.4 g/dL Hematocrit 27.4 % Mean Corpuscular Volume 96.1 fL Mean Corpuscular Hemoglobin 33.0 pg Mean Corpuscular Hemoglobin Concent 34.3 g/dl Platelet Count 100 K/uL Mean Platelet Volume 8.7 fL Neutrophils (%) (Auto) 64.8 % Lymphocytes (%) (Auto) 16.2 % Monocytes (%) (Auto) 15.9 % Eosinophils (%) (Auto) 2.2 % Basophils (%) (Auto) 0.3 % Neutrophils # (Auto) 2.04 K/uL Lymphocytes # (Auto) 0.51 K/uL Monocytes # (Auto) 0.50 K/uL Eosinophils # (Auto) 0.07 K/uL Basophils # (Auto) 0.01 K/uL RDW Standard Deviation 51.3 fL RDW Coefficient of Variation 14.7 % Immature Granulocyte % (Auto) 0.6 % Immature Granulocyte # (Auto) 0.02 K/uL Sodium Level 142 mmol/L Potassium Level 3.9 mmol/L Chloride Level 106 mmol/L Carbon Dioxide Level 27 mmol/L Anion Gap 9.0 mmol/L Blood Urea Nitrogen 11 mg/dl Creatinine 0.61 mg/dl Est Creatinine Clear Calc Drug Dose 52.0 ml/min Estimated GFR () 98.5 Estimated GFR (Non- 85.0 BUN/Creatinine Ratio 17.5 Random Glucose 103 mg/dl Calcium Level 8.7 mg/dl Magnesium Level 2.4 mg/dl (Christal Umanzor, PA-C) Assessment and Plan 80-year-old female with a history of glioblastoma status post resection 2016 presents to the emergency department with profound weakness and ambulatory dysfunction. Acute humerus fracture Weakness/ambulatory dysfunction-likely multifactoral. Anemia/orthostatic hypotension coupled with baseline unsteady gait -NS @ 80 cc/hr--> monitor orthostatics. May consider adding midodrine if no improvement -PT/OT Anemia/pancytopenia-hemoglobin drops further today from 10-9.4. -Again, likely source of bleeding is acute fracture coupled with anemia of chronic disease. I have a low suspicion of GI bleed. If it continues to drop further, consider a fecal occult blood test. However, given her history of PE, it may be more detrimental to discontinue her anticoagulants -Monitor H&H Right humerus fracture -Sling x 1 month. F/U Dr. Ledbetter 2 weeks History of PE -Continue Lovenox 80 mg subcutaneous daily Hypothyroidism -Continue Synthroid 88 g daily Questionable history of a GI bleed -Continue pantoprazole 40 mg daily Hypokalemia/hypophosphatemia-Repleted DVT prophylaxis -Lovenox as noted above -TEDS, SCDs CODE STATUS -LEVEL I FULL CODE DISPO -PT/OT eval pending. Will likely need at least rehabilitation (Christal Umanzor, PAHannahC) i personally examined pt and verified all chapin points w A Noé PAC present when i arrived. updated him as well she notes arm hurts no other complaints vitals noted nad, arm in sling, breathing unlabored, no pallor or icterus weakness - seems multifactorial w dehydration, arm pain, anemia from fx all playing a role as well as probably an element of deconditioning. repeat MRI from only a few weeks ago without disease progression so doubt this relates to brain tumor - obviously if she fails to make progress or worsens then will need to repeat MRI. otherwise as above (Rashard Monroy D.O.)
[2016-07-02 15:23] VITALS: BP 146/73; PULSE 85; TEMP 36.4; O2SAT 97
[2016-07-02] MEDS: SIMVASTATIN 10 MG TAB PO SCH (20:53)
[2016-07-02 23:25] VITALS: BP 145/61; PULSE 98; TEMP 36.7; O2SAT 95
[2016-07-03] MEDS: LEVOTHYROXINE 88 MCG TAB PO SCH (06:07)
[2016-07-03] MEDS: ACETAMINOPHEN 325 MG TAB PO PRN ×3 (06:08→23:13)
[2016-07-03 06:36] LABS: BASO % 0.3 %; BASO ABS # 0.01 K/uL (0-0.2); COMPLETE YES; EOS % 2.4 %; HEMATOCRIT 26.1 % (37-47); IG% 0.7 %; LYMPH % 22.4 %; LYMPH ABS # 0.64 K/uL (1.2-3.4); MEAN CELL VOLUME 96.3 fL (80-100); MEAN CORPUSCULAR HEMOGLOBIN 33.6 pg (25-34); MEAN CORPUSCULAR HGB CONC 34.9 g/dl (32-36); MEAN PLATELET VOLUME 8.6 fL (7.4-10.4); MONO % 12.6 %; NEUT % 61.6 %; PLATELET COUNT 102 K/uL (130-400); RED BLOOD COUNT 2.71 M/uL (4.2-5.4); WHITE BLOOD COUNT 2.86 K/uL (4.8-10.8)
[2016-07-03 07:14] LABS: BUN/CREATININE RATIO 12.5 (10-20); CALCIUM 8.9 mg/dl (8.5-10.1); CREATININE 0.55 mg/dl (0.60-1.20); POTASSIUM 3.7 mmol/L (3.5-5.1)
[2016-07-03 07:48] VITALS: BP 144/74; PULSE 82; TEMP 36.9; O2SAT 97
[2016-07-03] MEDS: PANTOprazole SOD 40 MG TAB PO SCH (08:44)
[2016-07-03] MEDS: CALCIUM 600MG + VIT D 400 IU TAB PO SCH (08:44)
[2016-07-03] MEDS: LEVETIRACETAM 500 MG TAB PO SCH ×2 (08:44→20:56)
[2016-07-03] MEDS: CHOLECALCIFEROL 1000 INTER.UNIT TAB PO SCH (08:45)
[2016-07-03] MEDS: ENOXAPARIN 80 MG/0.8 ML SYR SQ SCH (08:45)
[2016-07-03] MEDS: SODIUM CHLORIDE 0.9% 1000ML 1,000 ML IV SCH (08:52)
--- NOTE | 2016-07-03 10:28 | Discharge Instructions ---
Discharge Instructions Admission Reason for Admission: Generalized Weakness Discharge Discharge Diagnosis / Problem: generalized weakness, R humerus fracture Discharge Goals Goal(s): Improve function Activity Recommendations Activity Limitations: as noted below Rest right arm in a sling at all times except for bathing for 1 month Otherwise, activity as tolerated with assistance Instructions / Follow-Up Instructions / Follow-Up Please rest arm in a sling as noted above Please follow-up with your primary care physician within one week Please follow-up with Dr. Ledbetter from orthopedics in 2 weeks Activity as tolerated with assistance Take medications as prescribed Please have a repeat CBC done in 2 days as your blood counts were slightly low. Return to the emergency department if you have any of the following symptoms: -Fever of 102F or greater -Persistent vomiting - Persistent diarrhea -Lethargy -Chest pain -Weakness of one side of your body -Shortness of breath -Worsening pain Current Hospital Diet Patient's current hospital diet: Regular Diet, Low Lactose Diet Discharge Diet Recommended Diet: Regular Diet Pending Studies Studies pending at discharge: no Medical Emergencies . Who to Call and When: Medical Emergencies: If at any time you feel your situation is an emergency, please call 911 immediately. . Non-Emergent Contact Non-Emergency issues call your: Primary Care Provider . . "Provider Documentation" section prepared by Christal Umanzor. VTE Core Measure Inpt VTE Proph given/why not?: Enoxaparin (Lovenox)SHARON, Eloisa Morales, SCD's
--- NOTE | 2016-07-03 10:37 | Discharge Summary ---
Discharge Summary Admission Date: Jul 01, 2016 at 09:18 Discharge Date: Jul 03, 2016 Discharge Disposition: Rehab Principal Diagnosis: generalized weakness, right humerus fracture Problems/Secondary Diagnoses: History of glioblastoma status post resection in 2016 Hypothyroidism Hyperlipidemia Anemia Immunizations: Have You Had Influenza Vaccine: No History of Tetanus Vaccine?: Yes History of Pneumococcal: No History of Hepatitis B Vaccine: No Consultations: Orthopedics (Christal Umanzor PA-C) Medication Reconciliation Continued Medications: Calcium Carbonate-Vitamin D W/ (Caltrate 600 Plus) 1 Tab Tab 1 TAB PO DAILY, TAB Cholecalciferol (Vitamin D 1000 Unit) 1,000 Unit Cap 1000 INTER.UNIT PO DAILY, CAP Enoxaparin (Lovenox) 80 Mg/0.8 Ml Inj 80 MG SQ Q24H, SYR Levetiracetam (Keppra) 500 Mg Tab 500 MG PO BID, TAB Levothyroxine Sodium (Levothyroxine Sodium) 88 Mcg Tab 88 MCG PO DAILY Lorazepam (Ativan) 0.5 Mg Tab 0.5 MG PO DAILY PRN for Anxiety, TAB Oxycodone Ir (Roxicodone Ir) 5 Mg Tab 5 MG PO Q4H PRN for Severe Pain, TAB Risedronate Sodium (Actonel) 150 Mg Tab 150 MG PO MONTHLY Simvastatin (Zocor) 10 Mg Tab 10 MG PO QPM, 0 Refills Referrals At Discharge Follow up Referrals: Orthopedics Referral - Within 2 Weeks with Mathew Ledbetter M.D. Physician Referral - Within 1 Week with Jack Gonzales M.D. Discharge Exam Reports mild to moderate pain in the shoulder. Has no other complaints. Denies chest pain, shortness of breath, heart palpitations or dizziness. Denies nausea. Review of Systems: Constitutional: No fever Respiratory: No shortness of breath Cardiovascular: No chest pain Abdomen: No nausea Physical Exam: General Appearance: no apparent distress Eyes: EOMI Neck: no JVD Respiratory/Chest: lungs clear Cardiovascular: regular rate, rhythm Abdomen / GI: normal bowel sounds, non tender, soft Extremities: no calf tenderness, no pedal edema, + pertinent finding (right arm in a sling.) Neurologic/Psychiatric: alert (alert and oriented to person only. Not answering questions appropriately.) Skin: warm/dry (Christal Umanzor PA-C) Hospital Course 80-year-old female with a history of glioblastoma status post resection 2016 presents to the emergency department with profound weakness and ambulatory dysfunction. Acute humerus fracture Weakness/ambulatory dysfunction-likely multifactoral. Anemia/orthostatic hypotension coupled with baseline unsteady gait -NS @ 80 cc/hr--> monitor orthostatics. Improved -PT/OT Anemia/pancytopenia-hemoglobin stabilized at 9.1 -Again, likely source of bleeding is acute fracture coupled with anemia of chronic disease. I have a low suspicion of GI bleed. If it continues to drop further, consider a fecal occult blood test. However, given her history of PE, it may be more detrimental to discontinue her anticoagulants -Iron panel pending -Repeat CBC in 2 days -F/U PCP outpt 1 week Right humerus fracture -Sling x 1 month. F/U Dr. Ledbetter 2 weeks History of PE -Continue Lovenox 80 mg subcutaneous daily Hypothyroidism -Continue Synthroid 88 g daily Questionable history of a GI bleed -Continue pantoprazole 40 mg daily Hypokalemia/hypophosphatemia-Repleted DVT prophylaxis -Lovenox as noted above -TEDS, SCDs CODE STATUS -LEVEL I FULL CODE DISPO -[facility] Total Time Spent: Greater than 30 minutes This includes examination of the patient, discharge planning, medication reconciliation, and communication with other providers. (Christal Umanzor PA-C) Discharge Instructions Please refer to the electronic Patient Visit Report (Discharge Instructions) for additional information. (Christal Umanzor PA-C) Follow-Up orthopedics 1 month PCP 1 week (Christal Umanzor PA-C) Additional Copies To Mathew Ledbetter M.D.; Jack Gonzales M.D.
[2016-07-03 11:54] LABS: FERRITIN 280.6 ng/ml (8.0-388.0)
[2016-07-03 15:09] VITALS: BP 130/78; PULSE 85; TEMP 36.5; O2SAT 96
[2016-07-03] MEDS: SIMVASTATIN 10 MG TAB PO SCH (20:56)
[2016-07-03 23:35] VITALS: BP 137/66; PULSE 75; TEMP 36.5; O2SAT 98
[2016-07-04] MEDS: LEVOTHYROXINE 88 MCG TAB PO SCH (05:48)
[2016-07-04] MEDS: ACETAMINOPHEN 325 MG TAB PO PRN ×2 (06:58→12:18)
[2016-07-04 07:34] VITALS: BP 158/76; PULSE 91; TEMP 36.8; O2SAT 96
[2016-07-04] MEDS: CHOLECALCIFEROL 1000 INTER.UNIT TAB PO SCH (08:43)
[2016-07-04] MEDS: CALCIUM 600MG + VIT D 400 IU TAB PO SCH (08:43)
[2016-07-04] MEDS: LEVETIRACETAM 500 MG TAB PO SCH (08:43)
[2016-07-04] MEDS: PANTOprazole SOD 40 MG TAB PO SCH (08:44)
[2016-07-04] MEDS: ENOXAPARIN 80 MG/0.8 ML SYR SQ SCH (08:44)
--- NOTE | 2016-07-04 09:26 | Hospitalist Progress Note ---
Hospitalist Progress Note Date of Service Jul 04, 2016. (Christal Umanzor PA-C) Subjective Pt evaluation today including: conversation w/ patient, physical exam, chart review, lab review, review of inpatient medication list Patient feeling well this morning besides having right shoulder/elbow pain. Pain is increased with movement. She currently has to use a restroom. Has no other complaints. Denies any nausea, chest pain, shortness of breath or dizziness. Additional Comments: 6 system review negative. Please see pertinent positives in the history of present illness section. (Christal Umanzor PA-C) Objective Vital Signs Date Time Temp Pulse Resp B/P Pulse Ox O2 Delivery O2 Flow Rate FiO2 07/04/16 07:34 36.8 91 16 158/76 96 Room Air 07/04/16 07:00 Room Air 07/03/16 23:35 36.5 75 14 137/66 98 Room Air 07/03/16 20:00 Room Air 07/03/16 15:09 36.5 85 18 130/78 96 Room Air (Christal Umanzor PA-C) Physical Exam General Appearance: no apparent distress Eyes: EOMI Neck: no JVD Respiratory/Chest: lungs clear Cardiovascular: regular rate, rhythm Abdomen: normal bowel sounds, non tender, soft Extremities: non-tender, no pedal edema Neurologic/Psychiatric: alert (alert and oriented 1. Answering most questions appropriately this morning.) Skin: warm/dry (Christal Umanzor PA-C) Laboratory Results Last 24 Hours Test 07/03/16 10:42 07/03/16 12:28 07/04/16 04:44 Vitamin B12 Level 247 pg/mL Folate 6.38 ng/mL Heparin Anti-Xa Act, Low Molec Wt 1.11 IU/ML (Christal Umanzor PA-C) Assessment and Plan 80-year-old female with a history of glioblastoma status post resection 2016 presents to the emergency department with profound weakness and ambulatory dysfunction. Acute humerus fracture Stable for discharge to [facility]. Was supposed to be discharged yesterday. Authorization pending. No changes to plan. Please refer to discharge summary from 07/03/2016 (Christal Umanzor PA-C) pt seen, case d/w case management. d/w dr dee at [facility]. agree w Michelle Umanzor PAC vitals noted, nad, breathing unlabored weakness - for rehab arm fx - per ortho anemia - now stable, CBC next week stable for rehab (Rashard Monroy D.O.)
[2016-07-04 14:01] VITALS: BP 158/76; PULSE 91; TEMP 36.8; O2SAT 96
[2016-07-04 14:50] VITALS: BP 131/75; PULSE 85; TEMP 36.7; O2SAT 96
[2016-07-13] MEDS ORDERED: CPR500 PO (08:58)
[2016-10-05] MEDS ORDERED: ENOX80IN SQ (12:20)
[2016-10-05] MEDS ORDERED: ZTHM250 PO (12:20)
[2016-10-05] MEDS ORDERED: GFNSR600 PO (12:20)
[2016-10-05] MEDS ORDERED: CEFD1CAP14 PO (12:20)
[2016-10-05] MEDS ORDERED: VNTHFA/IN INH (12:20)
[2016-10-05] MEDS ORDERED: NUTR-977 PO (12:20)
== END 2016-07-04 16:53 | DRG 948 ==
LOC: ENRESERVTM → ENRESERVDT → EDBD 05:31 → C.EDA 05:32 → C.MSW 09:18
PROVIDERS: ADMIT Family Medicine; ATTEND Family Medicine
DX: R53.1 Weakness (principal); S42.211A Unspecified displaced fracture of surgical neck of right humerus, initial encounter for closed fracture; C71.9 Malignant neoplasm of brain, unspecified; E87.6 Hypokalemia; Z86.711 Personal history of pulmonary embolism; E03.9 Hypothyroidism, unspecified; E83.39 Other disorders of phosphorus metabolism; S42.201D Unspecified fracture of upper end of right humerus, subsequent encounter for fracture with routine healing; W19.XXXD Unspecified fall, subsequent encounter; M19.90 Unspecified osteoarthritis, unspecified site; E78.00 Pure hypercholesterolemia, unspecified; M81.0 Age-related osteoporosis without current pathological fracture; Z79.899 Other long term (current) drug therapy; R62.7 Adult failure to thrive; D63.8 Anemia in other chronic diseases classified elsewhere; W01.0XXA Fall on same level from slipping, tripping and stumbling without subsequent striking against object, initial encounter; Y92.019 Unspecified place in single-family (private) house as the place of occurrence of the external cause

== ENCOUNTER 2016-07-09 13:52 | Inpatient (IN) | payer OTHER, BC ==
[~2016-07-09] VITALS: Ht 162.6 cm; Wt 43.5 kg
[2016-07-09] MEDS ORDERED: NF656 EXT (14:30)
[2016-07-09] MEDS ORDERED: DOCU100C31 PO (14:30)
[2016-07-09] MEDS ORDERED: SENN-65 PO (14:30)
[2016-07-09] MEDS ORDERED: LEVO100T7 PO (14:30)
--- NOTE | 2016-07-09 14:41 | EMERGENCY ROOM VISIT NOTE ---
History Report prepared by Waldemar: Juliet Edwards Under the Supervision of: Dr. Wilbert Franco M.D. First contact with patient: 14:29 Chief Complaint: CONFUSION Stated Complaint: DISORIENTED, HEART RATE IS UP History of Present Illness The patient is a 80 year old female who presents to the Emergency Room to be evaluated for worsened confusion over the past 5 days. Per patient's daughter, the patient has been acting more disoriented compared to baseline since this past Thursday. The patient was diagnosed with a brain mass this past October and is following up with the cancer center. Today, the patient was seen at the cancer center by Dr. Gautam, who felt that she was altered and referred her to the hospital for a brain MRI. Her daughter believes that she is a little more weak than usual. The patient does not walk and uses a wheelchair. She was admitted to the hospital 8 days ago for weakness and was discharged 6 days ago. The patient has not had any recent headaches or falls. Denies fever, headaches, shortness of breath, or other complaints. Source of History: patient, family Onset: 5 days [employer] Position: other (Global) Quality: other (confusion) Timing: worsening Associated Symptoms: + weakness, No SOB, No fevers, No headache Review of Systems See HPI for pertinent positives & negatives. A total of 10 systems reviewed and were otherwise negative. Past Medical & Surgical Medical Problems: (1) Arm fracture, right (2) Elevated cholesterol (3) Hypothyroidism (4) Osteoarthritis (5) Osteoporosis (6) Swelling of left hand Surgical Problems: (1) S/P wrist surgery Family History Patient reports no known family medical history. Social History Smoking Status: Never Smoker Alcohol Use: none Marital Status: Housing Status: lives with significant other Occupation Status: retired Current/Historical Medications Scheduled Calcium Carbonate-Vitamin D W/ (Caltrate 600 Plus), 1 TAB PO DAILY Cholecalciferol (Vitamin D 1000 Unit), 1,000 INTER.UNIT PO DAILY Docusate Sodium (Docusate Sodium), 1 CAP PO BID Enoxaparin (Lovenox), 80 MG SQ Q24H Levetiracetam (Keppra), 500 MG PO BID Levothyroxine Sodium (Levothyroxine Sodium), 1 TAB PO DAILY Lidocaine (Lidoderm Patch 5%), 2 PATCH EXT DAILY@0700 Simvastatin (Zocor), 10 MG PO QPM Scheduled PRN Lorazepam (Ativan), 0.5 MG PO DAILY PRN for Anxiety Oxycodone Ir (Roxicodone Ir), 5 MG PO Q4H PRN for Severe Pain Senna/Docusate Sod (Senokot S), 1 TAB PO DAILY PRN for Constipation Allergies Coded Allergies: Lactose (Unverified Allergy, Unknown, ., 07/09/16) Penicillins (Unverified Allergy, Unknown, ., 07/09/16) Sulfamethoxazole w/Trimethoprim (Verified Adverse Reaction, Unknown, nausea, 07/09/16) allscripts Uncoded Allergies: ENTEX (Adverse Reaction, Unknown, nausea, 09/12/15) [employer]scripts Physical Exam Vital Signs Date Time Temp Pulse Resp B/P Pulse Ox O2 Delivery O2 Flow Rate FiO2 07/09/16 18:42 97 18 148/84 97 Room Air 07/09/16 18:37 97 22 07/09/16 18:37 96 07/09/16 18:32 98 18 07/09/16 18:27 94 20 07/09/16 18:22 98 17 07/09/16 18:17 96 18 07/09/16 18:12 97 17 07/09/16 18:07 97 17 07/09/16 18:02 99 17 07/09/16 17:57 97 18 156/80 98 Room Air 07/09/16 17:57 99 22 07/09/16 17:55 156/80 07/09/16 14:47 104 19 07/09/16 14:42 106 19 07/09/16 14:37 104 20 96 07/09/16 14:36 107 07/09/16 14:01 36.6 113 17 123/66 96 Room Air Physical Exam GENERAL: Patient more confused than when seen 1 week ago, somnolent but answers questions mostly appropriately. Diffuse generalized weakness, significantly worsened from when seen 1 week ago. HEENT: No acute trauma, normocephalic atraumatic, mucous membranes moist, no nasal congestion, no scleral icterus. NECK: No stridor, no adenopathy, no meningismus, trachea is midline. LUNGS: No dyspnea. Clear to auscultation and equal bilaterally. No wheeze, no rhonchi. HEART: Regular rate and rhythm. No murmurs, rubs, gallops appreciated. ABDOMEN: Soft, nontender, bowel sounds positive, no masses appreciated, no peritonitis. BACK: No midline tenderness, no CVA tenderness EXTREMITIES: Right arm in sling with bruising of the right humerus, otherwise normal motion all extremities, no cyanosis, no edema. NEUROLOGIC: Somnolent but oriented with questioning, no acute motor or sensory deficits, no focal weakness, cranial nerves grossly intact. SKIN: No rash, no jaundice, no diaphoresis. Medical Decision & Procedures ER Provider Diagnostic Interpretation: X ray results and stated below per my interpretation and radiologist interpretation. Other radiology results and stated below per my review and radiologist interpretation: CT SCAN OF THE BRAIN WITHOUT IV CONTRAST CLINICAL HISTORY: Change in mental status. COMPARISON STUDY: CT of the brain dated 07/01/2016. MRI of the brain dated 11/08/2015. TECHNIQUE: Unenhanced axial CT scan of the brain is performed from the vertex to the skull base. CT DOSE: 537.48 mGy.cm FINDINGS: Brain parenchyma: Right temporal encephalomalacia is unchanged and consistent with previous tumor resection. Dural thickening deep to the craniotomy site is likely on a postoperative basis. There are age-related involutional changes noting moderate subcortical and periventricular microangiopathic change. There is no hemorrhage, mass effect, or evidence of acute territorial ischemia by CT criteria. Nguyen-white matter is preserved. No extra-axial fluid collection is seen. Ventricles, sulci, cisterns: Prominent secondary to involutional change. Intracranial vasculature: There is atherosclerotic calcification of the cavernous carotid and vertebral arteries. Calvarium: There are changes from right temporal craniotomy. No destructive calvarial lesion is seen. Sinuses and mastoids: The visualized paranasal sinuses are clear. The mastoid air cells are well pneumatized. Orbits: The bony orbits are grossly intact. IMPRESSION: 1. There is no hemorrhage, mass effect, or evidence of acute territorial ischemia by CT criteria. 2. Chronic and postoperative changes as above. There has been no significant change from 07/01/2016. Electronically signed by: Govind Schaefer M.D. 07/09/2016 3:05 PM Dictated Date/Time: 07/09/2016 3:02 PM CHEST ONE VIEW PORTABLE CLINICAL HISTORY: Acute change in mental status COMPARISON STUDY: 07/01/2016 FINDINGS: The cardiac and mediastinal contours are normal. There is no evidence of focal pulmonary consolidation. There is no evidence of failure. No pleural effusions are visualized.[ There is an old proximal right humeral deformity. There is widening of the right, clavicular joint. IMPRESSION: No active disease in the chest. Electronically signed by: Corby Kee M.D. 07/09/2016 3:16 PM Dictated Date/Time: 07/09/2016 3:15 PM Laboratory Results 07/09/16 14:50 Red Blood Count 3.36, Mean Corpuscular Volume 95.2, Mean Corpuscular Hemoglobin 33.3, Mean Corpuscular Hemoglobin Concent 35.0, Mean Platelet Volume 9.0, Neutrophils (%) (Auto) 73.4, Lymphocytes (%) (Auto) 11.8, Monocytes (%) (Auto) 12.7, Eosinophils (%) (Auto) 1.5, Basophils (%) (Auto) 0.2, Neutrophils # (Auto ) 3.41, Lymphocytes # (Auto) 0.55, Monocytes # (Auto) 0.59, Eosinophils # (Auto ) 0.07, Basophils # (Auto) 0.01 07/09/16 14:50 Test 07/09/16 14:50 07/09/16 16:15 White Blood Count 4.65 K/uL (4.8-10.8) Red Blood Count 3.36 M/uL (4.2-5.4) Hemoglobin 11.2 g/dL (12.0-16.0) Hematocrit 32.0 % (37-47) Mean Corpuscular Volume 95.2 fL (80-100) Mean Corpuscular Hemoglobin 33.3 pg (25-34) Mean Corpuscular Hemoglobin Concent 35.0 g/dl (32-36) Platelet Count 149 K/uL (130-400) Mean Platelet Volume 9.0 fL (7.4-10.4) Neutrophils (%) (Auto) 73.4 % Lymphocytes (%) (Auto) 11.8 % Monocytes (%) (Auto) 12.7 % Eosinophils (%) (Auto) 1.5 % Basophils (%) (Auto) 0.2 % Neutrophils # (Auto) 3.41 K/uL (1.4-6.5) Lymphocytes # (Auto) 0.55 K/uL (1.2-3.4) Monocytes # (Auto) 0.59 K/uL (0.11-0.59) Eosinophils # (Auto) 0.07 K/uL (0-0.5) Basophils # (Auto) 0.01 K/uL (0-0.2) RDW Standard Deviation 51.5 fL (36.4-46.3) RDW Coefficient of Variation 15.1 % (11.5-14.5) Immature Granulocyte % (Auto) 0.4 % Immature Granulocyte # (Auto) 0.02 K/uL (0.00-0.02) Prothrombin Time 10.7 SECONDS (9.0-12.0) Prothromb Time International Ratio 1.0 (0.9-1.1) Activated Partial Thromboplast Time 26.6 SECONDS (21.0-31.0) Partial Thromboplastin Ratio 1.0 Anion Gap 10.0 mmol/L (3-11) Est Creatinine Clear Calc Drug Dose 36.5 ml/min Estimated GFR () 75.5 Estimated GFR (Non- 65.2 BUN/Creatinine Ratio 19.8 (10-20) Calcium Level 10.2 mg/dl (8.5-10.1) Total Bilirubin 0.6 mg/dl (0.2-1) Direct Bilirubin 0.2 mg/dl (0-0.2) Aspartate Amino Transf (AST/SGOT) 11 U/L (15-37) Alanine Aminotransferase (ALT/SGPT) 16 U/L (12-78) Alkaline Phosphatase 67 U/L (45-117) Troponin I < 0.015 ng/ml (0-0.045) Total Protein 6.9 gm/dl (6.4-8.2) Albumin 3.4 gm/dl (3.4-5.0) Urine Color YELLOW Urine Appearance CLEAR (CLEAR) Urine pH 6.5 (4.5-7.5) Urine Specific [place] 1.012 (1.000-1.030) Urine Protein NEG (NEG) Urine Glucose (UA) NEG (NEG) Urine Ketones NEG (NEG) Urine Occult Blood NEG (NEG) Urine Nitrite POS (NEG) Urine Bilirubin NEG (NEG) Urine Urobilinogen NEG (NEG) Urine Leukocyte Esterase NEG (NEG) Urine WBC (Auto) 1-5 /hpf (0-5) Urine RBC (Auto) 0-4 /hpf (0-4) Urine Hyaline Casts (Auto) 0 /lpf (0-5) Urine Epithelial Cells (Auto) 0-5 /lpf (0-5) Urine Bacteria (Auto) 2+ (NEG) Laboratory results as reviewed by me. Medications Administered Medications (Trade) Dose Ordered Sig/Wilver Route Start Time Stop Time Status Last Admin Dose Admin Sodium Chloride (Nss 500ml) 500 ml @ 999 mls/hr Q31M STAT IV 07/09/16 17:42 07/09/16 18:12 DC 07/09/16 17:48 999 MLS/HR Ceftriaxone Sodium (Rocephin Inj) 1 gm NOW STAT IV 07/09/16 18:08 07/09/16 18:10 DC 07/09/16 18:50 1 GM ECG Indication: altered mental status Rate (beats per minute): 106 Rhythm: sinus tachycardia Findings: no acute ischemic change, no ectopy ED Course 1430: The patient was evaluated in room B3. A complete history and physical exam was performed. 1438: I discussed the case with Dr. Gautam - Oncology. He agreed with a septic work up and said that she will likely need an MRI for further evaluation. 1742: Ordered NSS 500 ml @ 999 mls/hr IV. 1808: Ordered Rocephin Inj 1 gm IV. 1810: Upon reevaluation, the patient is resting comfortably. Discussed results and treatment plan with the patient and her daughter. They verbalized understanding and agreement with the treatment plan. The patient will be evaluated for further management. 1814: I discussed the case with Dr. [place] [facility] The patient will be evaluated for further management. MRI was ordered at the request of medicine team. Medical Decision Differential: Sepsis, Infectious (UTI/Pneumonia/Meningitis/etc), Metabolic/ Electrolyte Abnormality, Cardiac, Hepatic, Endocrine, Toxicologic, Neurologic, amongst other pathologies entertained. 80 yr old female well known to me with history of GBM and craniectomy 9 months ago who has been having progressive weakness last few weeks. Acute change in mental status with increased somnolence and confusion over last few days to point where rehab has been minimal effective. Seen at Onc today and sent to ED for evaluation of this confusion, tachycardia and to have further work-up of brain. Somewhat prolonged time in ED attempting to get UA, though when it was obtained found to have UTI. Given confusion and UTI with tachycardia and weakness, along with fact she is having difficulty participating in rehab, seems that coming in reasonable. I did order MRI brain at request of hospitalists, however patient was too confused and apparently combative to lay still for this, and given her history I do not feel it would be appropriate for me to sedate her further while in the emergency department to get this done. Consults Time Called: [phone] Consulting Physician: Dr. Gautam - Oncology Returned Call: [phone] I discussed the case with him. He agreed with a septic work up and said that she will likely need an MRI for further evaluation. Additional Consults: Time Called: [phone] Consulted Physician: Dr. Og[place] - [facility] [place] Returned Call: [phone] Additional Comments: I discussed the case with him. The patient will be evaluated for further management. Impression Primary Impression: Altered mental status Additional Impressions: Confusion UTI (urinary tract infection) Scribe Attestation The scribe's documentation has been prepared under my direction and personally reviewed by me in its entirety. I confirm that the note above accurately reflects all work, treatment, procedures, and medical decision making performed by me. Departure Information Dispostion Being Evaluated By Hospitalist Referrals No Doctor, Assigned (PCP) Patient Instructions My [facility] Problem Qualifiers Primary Impression: Altered mental status Altered mental status type: somnolence Qualified Codes: R40.0 - Somnolence Additional Impressions: UTI (urinary tract infection) Urinary tract infection type: acute cystitis Hematuria presence: without hematuria Qualified Codes: N30.00 - Acute cystitis without hematuria
--- NOTE | 2016-07-09 15:08 | DIAGNOSTIC IMAGING REPORT ---
CT SCAN OF THE BRAIN WITHOUT IV CONTRAST CLINICAL HISTORY: Change in mental status. COMPARISON STUDY: CT of the brain dated 07/01/2016. MRI of the brain dated 11/08/2015. TECHNIQUE: Unenhanced axial CT scan of the brain is performed from the vertex to the skull base. CT DOSE: 537.48 mGy.cm FINDINGS: Brain parenchyma: Right temporal encephalomalacia is unchanged and consistent with previous tumor resection. Dural thickening deep to the craniotomy site is likely on a postoperative basis. There are age-related involutional changes noting moderate subcortical and periventricular microangiopathic change. There is no hemorrhage, mass effect, or evidence of acute territorial ischemia by CT criteria. Nguyen-white matter is preserved. No extra-axial fluid collection is seen. Ventricles, sulci, cisterns: Prominent secondary to involutional change. Intracranial vasculature: There is atherosclerotic calcification of the cavernous carotid and vertebral arteries. Calvarium: There are changes from right temporal craniotomy. No destructive calvarial lesion is seen. Sinuses and mastoids: The visualized paranasal sinuses are clear. The mastoid air cells are well pneumatized. Orbits: The bony orbits are grossly intact. IMPRESSION: 1. There is no hemorrhage, mass effect, or evidence of acute territorial ischemia by CT criteria. 2. Chronic and postoperative changes as above. There has been no significant change from 07/01/2016. Electronically signed by: Govind Schaefer M.D. 07/09/2016 3:05 PM Dictated Date/Time: 07/09/2016 3:02 PM
[2016-07-09 15:09] LABS: BASO % 0.2 %; BASO ABS # 0.01 K/uL (0-0.2); COMPLETE YES; EOS % 1.5 %; IG% 0.4 %; LYMPH % 11.8 %; LYMPH ABS # 0.55 K/uL (1.2-3.4); MEAN CELL VOLUME 95.2 fL (80-100); MEAN CORPUSCULAR HEMOGLOBIN 33.3 pg (25-34); MONO % 12.7 %; NEUT % 73.4 %; PLATELET COUNT 149 K/uL (130-400); RED BLOOD COUNT 3.36 M/uL (4.2-5.4); WHITE BLOOD COUNT 4.65 K/uL (4.8-10.8)
--- NOTE | 2016-07-09 15:18 | DIAGNOSTIC IMAGING REPORT ---
CHEST ONE VIEW PORTABLE CLINICAL HISTORY: Acute change in mental status COMPARISON STUDY: 07/01/2016 FINDINGS: The cardiac and mediastinal contours are normal. There is no evidence of focal pulmonary consolidation. There is no evidence of failure. No pleural effusions are visualized.[ There is an old proximal right humeral deformity. There is widening of the right, clavicular joint. IMPRESSION: No active disease in the chest. Electronically signed by: Corby Kee M.D. 07/09/2016 3:16 PM Dictated Date/Time: 07/09/2016 3:15 PM
[2016-07-09 15:26] LABS: PROTHROMBIN TIME (PATIENT) 10.7 SECONDS (9.0-12.0)
[2016-07-09 15:30] LABS: ALT/SGPT 16 U/L (12-78); AST/SGOT 11 U/L (15-37); BLOOD UREA NITROGEN 17 mg/dl (7-18); BUN/CREATININE RATIO 19.8 (10-20); CALCIUM 10.2 mg/dl (8.5-10.1); CARBON DIOXIDE 29 mmol/L (21-32); CHLORIDE 100 mmol/L (98-107); CREATININE 0.84 mg/dl (0.60-1.20); GLUCOSE 130 mg/dl (70-99); SODIUM 139 mmol/L (136-145)
[2016-07-09 15:34] LABS: ALKALINE PHOSPHATASE 67 U/L (45-117)
[2016-07-09] MEDS ORDERED: SODIUM CHLORIDE 0.9% 500ML 500 ML IV STA (17:42)
[2016-07-09 17:49] LABS: URINE APPEARANCE CLEAR (CLEAR); URINE BILIRUBIN NEG (NEG); URINE COLOR YELLOW; URINE EPITHELIAL CELL AUTO 0-5 /lpf (0-5); URINE NITRITE POS (NEG); URINE PH 6.5 (4.5-7.5); URINE SPECIFIC GRAVITY 1.012 (1.000-1.030); UROBILINOGEN NEG (NEG); ZZURINE CULT IF INDIC CATH YES
[2016-07-09 18:07] LABS: MANUAL MICROSCOPIC REQUIRED? NO; REVIEW REQ? NO
[2016-07-09] MEDS ORDERED: CEFTRIAXONE SOD INJ 1 GM ADDVIAL IV STA (18:08)
[2016-07-09] MEDS ORDERED: DOCUSATE SODIUM/SENNA 50/8.6MG TAB PO PRN (19:30)
[2016-07-09] MEDS ORDERED: ALUMINUM/MAGNESIUM/SIMETH (MAALOX MAX) 30 ML UDC PO PRN (19:30)
[2016-07-09] MEDS ORDERED: LORAZEPAM 0.5 MG TAB PO PRN (19:30)
[2016-07-09] MEDS ORDERED: MAGNESIUM HYDROXIDE SUSP 30 ML UDC PO PRN (19:30)
[2016-07-09] MEDS ORDERED: ONDANSETRON INJ 2 MG/ML 2 ML VIAL IV PRN (19:30)
--- NOTE | 2016-07-09 19:59 | History and Physical ---
History & Physical Date & Time of Service: Jul 09, 2016 at 19:43 Chief Complaint: Disoriented, Heart Rate Is Up Primary Care Physician: Jack Gonzales M.D. History of Present Illness Source: patient, family, hospital records This patient is an 80-year-old female with a history of a glioblastoma that was resected in October 2015 that was transferred to the emergency department from [facility] for increased confusion. The history is limited secondary to the patient's altered mental state. Most of the history is taken from the family that is at the bedside. The patient was admitted to the hospital from 07/01-07/03 with a right humerus fracture and increased weakness. The family notes that she has had a progressive cognitive decline since then. The patient apparently followed up with Dr. Gautam, her oncologist, today and was significantly confused. He advised that she come to the ED for evaluation. There have reportedly been no acute changes in her medications. She has been receiving oxycodone 5 mg every 4 hours as needed for pain with her humerus fracture. She also has Ativan 0.5 mg as needed for anxiety/agitation on her medical list. Past Medical/Surgical History Medical Problems: (1) Arm fracture, right Status: Resolved (2) Elevated cholesterol Status: Chronic (3) Hypothyroidism Status: Chronic (4) Osteoarthritis Status: Chronic (5) Osteoporosis Status: Chronic (6) Swelling of left hand Status: Resolved Surgical Problems: (1) S/P wrist surgery Status: Resolved Family History Patient reports no known family medical history. Social History Smoking Status: Never Smoker Alcohol Use: none Marital Status: Housing status: lives with family, lives with significant other, other ( recently at [facility]) Occupational Status: retired Immunizations History of Influenza Vaccine: No History of Tetanus Vaccine?: Yes History of Pneumococcal: No History of Hepatitis B Vaccine: No Multi-Drug Resistant Organisms History of MDRO: No Allergies Coded Allergies: Lactose (Unverified Allergy, Unknown, ., 07/09/16) Penicillins (Unverified Allergy, Unknown, ., 07/09/16) Sulfamethoxazole w/Trimethoprim (Verified Adverse Reaction, Unknown, nausea, 07/09/16) allscripts Uncoded Allergies: ENTEX (Adverse Reaction, Unknown, nausea, 09/12/15) allscripts Home Medications Scheduled Calcium Carbonate-Vitamin D W/ (Caltrate 600 Plus), 1 TAB PO DAILY Cholecalciferol (Vitamin D 1000 Unit), 1,000 INTER.UNIT PO DAILY Docusate Sodium (Docusate Sodium), 1 CAP PO BID Enoxaparin (Lovenox), 80 MG SQ Q24H Levetiracetam (Keppra), 500 MG PO BID Levothyroxine Sodium (Levothyroxine Sodium), 1 TAB PO DAILY Lidocaine (Lidoderm Patch 5%), 2 PATCH EXT DAILY@0700 Simvastatin (Zocor), 10 MG PO QPM Scheduled PRN Lorazepam (Ativan), 0.5 MG PO DAILY PRN for Anxiety Oxycodone Ir (Roxicodone Ir), 5 MG PO Q4H PRN for Severe Pain Senna/Docusate Sod (Senokot S), 1 TAB PO DAILY PRN for Constipation Review of Systems Unable to obtain secondary to altered mental state Physical Exam Vital Signs Date Time Temp Pulse Resp B/P Pulse Ox O2 Delivery O2 Flow Rate FiO2 07/09/16 18:42 97 18 148/84 97 Room Air 07/09/16 18:37 97 22 07/09/16 18:37 96 07/09/16 18:32 98 18 07/09/16 18:27 94 20 07/09/16 18:22 98 17 07/09/16 18:17 96 18 07/09/16 18:12 97 17 07/09/16 18:07 97 17 07/09/16 18:02 99 17 07/09/16 17:57 97 18 156/80 98 Room Air 07/09/16 17:57 99 22 07/09/16 17:55 156/80 07/09/16 14:47 104 19 07/09/16 14:42 106 19 07/09/16 14:37 104 20 96 07/09/16 14:36 107 07/09/16 14:01 36.6 113 17 123/66 96 Room Air General Appearance: + moderate distress (significantly agitated) Head: normocephalic Eyes: EOMI Neck: no JVD Respiratory/Chest: lungs clear Cardiovascular: regular rate, rhythm Abdomen/GI: normal bowel sounds, non tender, soft Extremities/Musculoskelatal: no calf tenderness, no pedal edema, + pertinent finding ( right arm in a sling with significant ecchymosis noted) Neurologic/Psych: alert (not answering questions properly. Not following commands.) Skin: warm/dry Diagnostics Laboratory Results Results Past 24 Hours Test 07/09/16 14:50 07/09/16 16:15 Range/Units White Blood Count 4.65 4.8-10.8 K/uL Red Blood Count 3.36 4.2-5.4 M/uL Hemoglobin 11.2 12.0-16.0 g/dL Hematocrit 32.0 37-47 % Mean Corpuscular Volume 95.2 80-100 fL Mean Corpuscular Hemoglobin 33.3 25-34 pg Mean Corpuscular Hemoglobin Concent 35.0 32-36 g/dl Platelet Count 149 130-400 K/uL Mean Platelet Volume 9.0 7.4-10.4 fL Neutrophils (%) (Auto) 73.4 % Lymphocytes (%) (Auto) 11.8 % Monocytes (%) (Auto) 12.7 % Eosinophils (%) (Auto) 1.5 % Basophils (%) (Auto) 0.2 % Neutrophils # (Auto) 3.41 1.4-6.5 K/uL Lymphocytes # (Auto) 0.55 1.2-3.4 K/uL Monocytes # (Auto) 0.59 0.11-0.59 K/uL Eosinophils # (Auto) 0.07 0-0.5 K/uL Basophils # (Auto) 0.01 0-0.2 K/uL RDW Standard Deviation 51.5 36.4-46.3 fL RDW Coefficient of Variation 15.1 11.5-14.5 % Immature Granulocyte % (Auto) 0.4 % Immature Granulocyte # (Auto) 0.02 0.00-0.02 K/uL Prothrombin Time 10.7 9.0-12.0 SECONDS Prothromb Time International Ratio 1.0 0.9-1.1 Activated Partial Thromboplast Time 26.6 21.0-31.0 SECONDS Partial Thromboplastin Ratio 1.0 Sodium Level 139 136-145 mmol/L Potassium Level 4.0 3.5-5.1 mmol/L Chloride Level 100 98-107 mmol/L Carbon Dioxide Level 29 21-32 mmol/L Anion Gap 10.0 3-11 mmol/L Blood Urea Nitrogen 17 7-18 mg/dl Creatinine 0.84 0.60-1.20 mg/dl Est Creatinine Clear Calc Drug Dose 36.5 ml/min Estimated GFR () 75.5 Estimated GFR (Non- 65.2 BUN/Creatinine Ratio 19.8 10-20 Random Glucose 130 70-99 mg/dl Calcium Level 10.2 8.5-10.1 mg/dl Total Bilirubin 0.6 0.2-1 mg/dl Direct Bilirubin 0.2 0-0.2 mg/dl Aspartate Amino Transf (AST/SGOT) 11 15-37 U/L Alanine Aminotransferase (ALT/SGPT) 16 12-78 U/L Alkaline Phosphatase 67 45-117 U/L Troponin I < 0.015 0-0.045 ng/ml Total Protein 6.9 6.4-8.2 gm/dl Albumin 3.4 3.4-5.0 gm/dl Urine Color YELLOW Urine Appearance CLEAR CLEAR Urine pH 6.5 4.5-7.5 Urine Specific [place] 1.012 1.000-1.030 Urine Protein NEG NEG Urine Glucose (UA) NEG NEG Urine Ketones NEG NEG Urine Occult Blood NEG NEG Urine Nitrite POS NEG Urine Bilirubin NEG NEG Urine Urobilinogen NEG NEG Urine Leukocyte Esterase NEG NEG Urine WBC (Auto) 1-5 0-5 /hpf Urine RBC (Auto) 0-4 0-4 /hpf Urine Hyaline Casts (Auto) 0 0-5 /lpf Urine Epithelial Cells (Auto) 0-5 0-5 /lpf Urine Bacteria (Auto) 2+ NEG Microbiology Results 07/09/16 Blood Culture, Received Pending 07/09/16 Blood Culture, Received Pending 07/09/16 Urine Culture, Received Pending Diagnostic Radiology Patient Name: NORMAN CHANG Unit Number: [id number] Dictated: 07/09/161501 Transcribed: 07/09/161501 EV Printed Date/Time: [~ rep prt dt]/[~ rep prt tm] [~ rep ct labl] - [~ rep ct ivnm] [facility] [place] [address] Dictated: 07/09/161501 Transcribed: 07/09/161501 EV Printed Date/Time: [~ rep prt dt]/[~ rep prt tm] [~ rep ct labl] - [~ rep ct ivnm] CT SCAN OF THE BRAIN WITHOUT IV CONTRAST CLINICAL HISTORY: Change in mental status. COMPARISON STUDY: CT of the brain dated 07/01/2016. MRI of the brain dated 11/08/2015. TECHNIQUE: Unenhanced axial CT scan of the brain is performed from the vertex to the skull base. CT DOSE: 537.48 mGy.cm FINDINGS: Brain parenchyma: Right temporal encephalomalacia is unchanged and consistent with previous tumor resection. Dural thickening deep to the craniotomy site is likely on a postoperative basis. There are age-related involutional changes noting moderate subcortical and periventricular microangiopathic change. There is no hemorrhage, mass effect, or evidence of acute territorial ischemia by CT criteria. Nguyen-white matter is preserved. No extra-axial fluid collection is seen. Ventricles, sulci, cisterns: Prominent secondary to involutional change. Intracranial vasculature: There is atherosclerotic calcification of the cavernous carotid and vertebral arteries. Calvarium: There are changes from right temporal craniotomy. No destructive calvarial lesion is seen. Sinuses and mastoids: The visualized paranasal sinuses are clear. The mastoid air cells are well pneumatized. Orbits: The bony orbits are grossly intact. IMPRESSION: 1. There is no hemorrhage, mass effect, or evidence of acute territorial ischemia by CT criteria. 2. Chronic and postoperative changes as above. There has been no significant change from 07/01/2016. Electronically signed by: Govind Schaefer M.D. 07/09/2016 3:05 PM Dictated Date/Time: 07/09/2016 3:02 PM The status of this report is Signed. Draft = Not yet reviewed or approved by Radiologist. Signed = Reviewed and approved by Radiologist. <AttendingPhy></AttendingPhy> <FamilyPhy>Darrel Hernandez M.D.</FamilyPhy> < PrimaryPhy>Jack Gonzales M.D.</PrimaryPhy> <UnitNumber>[id number]</UnitNumber > <VisitNumber>[id number]</VisitNumber> <PatientName>NORMAN CHANG</ PatientName> <DateOfBirth>1935</DateOfBirth> <Location>[facility]</Location> < ServiceDate>07/09/16</ServiceDate> <MNE>ESINDI</MNE> <OrderingPhy>Wilbert Franco M.D.</OrderingPhy> <OrderingPhyMNE>f rep ord dr moise</OrderingPhyMNE> < DictatingPhyMNE>f rep dict dr moise</DictatingPhyMNE> <CCListMNE>f rep ct mne</ CCListMNE> <AdmittingPhyMNE>f pt admit dr moise</AdmittingPhyMNE> <AttendingPhyMNE >f pt attend dr moise</AttendingPhyMNE> <ConsultingPhyMNE>f pt consult dr moise</ConsultingPhyMNE> <FamilyPhyMNE>f pt fam dr moise</FamilyPhyMNE> <OtherPhyMNE>f pt other dr moise</OtherPhyMNE> < PrimaryPhyMNE>f pt prim care dr moise</PrimaryPhyMNE> <ReferringPhyMNE>f pt referring dr moise</ReferringPhyMNE> CHEST ONE VIEW PORTABLE CLINICAL HISTORY: Acute change in mental status COMPARISON STUDY: 07/01/2016 FINDINGS: The cardiac and mediastinal contours are normal. There is no evidence of focal pulmonary consolidation. There is no evidence of failure. No pleural effusions are visualized.[ There is an old proximal right humeral deformity. There is widening of the right, clavicular joint. IMPRESSION: No active disease in the chest. Electronically signed by: Corby Kee M.D. 07/09/2016 3:16 PM Dictated Date/Time: 07/09/2016 3:15 PM The status of this report is Signed. Draft = Not yet reviewed or approved by Radiologist. Signed = Reviewed and approved by Radiologist. <AttendingPhy></AttendingPhy> <FamilyPhy>Darrel Hernandez M.D.</FamilyPhy> < PrimaryPhy>Jack Gonzales M.D.</PrimaryPhy> <UnitNumber>[id number]</UnitNumber > <VisitNumber>[id number]</VisitNumber> <Analy EKG Sinus tachycardia 106 bpm Q waves noted in V1 and V2. Q waves also noted in the inferior leads Impression Assessment and Plan 80-year-old female with a history of glioblastoma status post resection of October 2015 and status post chemotherapy and radiation. Transferred from [facility] with increased confusion Altered mental status/metabolic encephalopathy-possibly secondary to UTI versus polypharmacy with oxycodone and Ativan -Admit to telemetry -Obtain MRI -Consult Dr. Gautam -trend cardiac enzymes -Avoid benzos for agitation. If needed, low-dose Haldol as recommended -Obtain urine culture -We will cover patient for healthcare associated UTI until urine culture is back : Vanco/Zosyn -Follow up blood cultures -Neuro checks every 4 hours History of glioblastoma -MRI reviewed from 06/11/2016 from [place]. No new disease noted. Currently on Avastin treatment -Oncology consult as noted above -Repeat MRI as noted above Anemia-hemoglobin stable Right humerus fracture -Rest arm in a sling at all times besides showering per orthopedics for 5 additional weeks. Follow-up with Dr. Ledbetter next week History of PE -Continue Lovenox 80 mg subcutaneous daily Hypothyroidism -Continue Synthroid 88 g daily -Check TSH Questionable history of a GI bleed -Continue pantoprazole 40 mg daily -Continue to monitor H&H DVT prophylaxis -Lovenox as noted above -TEDS, SCDs CODE STATUS -LEVEL I FULL CODE Level of Care Telemetry Resuscitation Status FULL RESUSCITATION VTE Prophylaxis VTE Risk Assessment Done? Y/N: Yes Risk Level: Low Given or contraindicated: Enoxaparin (Lovenox)SQ, T.E.D. Stockings, SCD's Assessment and Plan attending addendum: I have seen and examined this patient, have directed their medical care, and agree with the H&P as noted above.
[2016-07-09] MEDS: OXYCODONE HCL IR 5 MG TAB (IMMEDIATE RELEASE) PO PRN (21:19)
[2016-07-09] MEDS ORDERED: VANCOMYCIN CONSULT ACTIVE PRN (21:45)
[2016-07-09] MEDS ORDERED: PIPERACILL/TAZOBAC CONSULT ACTIVE PRN (21:45)
[2016-07-09] MEDS ORDERED: PIPERACILL/TAZOBAC IV 3.375 GM in DEXTROSE 5% 100ML 100 ML IV SCH (22:00)
[2016-07-09 22:35] VITALS: BP 143/75; PULSE 92; TEMP 36.3; O2SAT 96
[2016-07-09] MEDS ORDERED: VANCOMYCIN INJ 1,100 MG in SODIUM CHLORIDE 0.9% 250ML 250 ML IV ONE (22:45)
[2016-07-10] VITALS (8 sets, daily range): BP systolic 122–147; BP diastolic 74–81; PULSE 80–91; TEMP 36.3–37; O2SAT 96–98; Ht 162.6 cm; Wt 43.5 kg
[2016-07-10] MEDS: DOCUSATE SODIUM 100 MG CAP PO SCH ×3 (00:16→20:44)
[2016-07-10] MEDS: LEVETIRACETAM 500 MG TAB PO SCH ×3 (00:16→20:43)
[2016-07-10] MEDS: SIMVASTATIN 10 MG TAB PO SCH ×2 (00:16→20:44)
--- NOTE | 2016-07-10 05:42 | Pharmacy Progress Note ---
Pharmacy Antibiotic Consult Date of Service: Jul 10, 2016. Pharmacy Dosing Scope Pharmacy is consulted to initiate Vancomycin IV dosing therapy, order appropriate labs and adjust drug dose/frequency. Subjective The patient is a 80 year old female admitted on Jul 09, 2016 at 19:48 admitted with altered mental status that was possibly from UTI or polypharmacy issues started on broad spectrum antibiotics. Objective Height (Feet): 5 Height (Inches): 4.00 Weight (Kilograms): 43.100 Lab Results (24hrs): Laboratory Tests Test 07/09/16 14:50 07/10/16 04:44 BUN/Creatinine Ratio 19.8 Blood Urea Nitrogen 17 mg/dl Creatinine 0.84 mg/dl White Blood Count 4.65 K/uL Red Blood Count 3.36 M/uL Hemoglobin 11.2 g/dL Hematocrit 32.0 % Mean Corpuscular Volume 95.2 fL Mean Corpuscular Hemoglobin 33.3 pg Mean Corpuscular Hemoglobin Concent 35.0 g/dl Platelet Count 149 K/uL Mean Platelet Volume 9.0 fL Neutrophils (%) (Auto) 73.4 % Lymphocytes (%) (Auto) 11.8 % Monocytes (%) (Auto) 12.7 % Eosinophils (%) (Auto) 1.5 % Basophils (%) (Auto) 0.2 % Neutrophils # (Auto) 3.41 K/uL Lymphocytes # (Auto) 0.55 K/uL Monocytes # (Auto) 0.59 K/uL Eosinophils # (Auto) 0.07 K/uL Basophils # (Auto) 0.01 K/uL Micro Results: Item Value Date Time MRSA DNA Surveillance Screen - Final Complete 07/09/16 2248 Nasal Specimen Negative for MRSA by DNA Probe Urine Culture Received 07/09/16 1615 Urine,Catheterized Pending Blood Culture Received 07/09/16 1534 Blood Pending Blood Culture Received 07/09/16 1530 Blood Pending Recent Pertinent Medications Item Value Date Time Ceftriaxone 50 ml @ 100 mls/hr 07/10/16 1800 Sodium 1 gm/ Q24H/IV Dextrose Assessment & Plan Loading dose: Vancomycin 1100mg (~25mg/kg) IV X 1 dose then: Vancomycin 750mg (~ 17mg/kg) daily. I estimated her half life at around 20 hours. Will check a trough level prior to 2200 dose on 07/12/16. Goal trough level estimate: between 15-20mcg/mL. She was originally ordered Zosyn but due to Penicillin allergy and history of receiving Rocephin (including it the ED today) Dr. Naylor changed it to Rocephin Pharmacy will continue to follow and will adjust dose/frequency as necessary. Thank you
[2016-07-10] MEDS: LEVOTHYROXINE 100 MCG TAB PO SCH ×2 (06:30→06:31)
[2016-07-10 08:05] LABS: BASO % 0.3 %; BASO ABS # 0.01 K/uL (0-0.2); COMPLETE YES; EOS % 2.2 %; HEMATOCRIT 29.7 % (37-47); IG% 0.3 %; LYMPH % 17.2 %; LYMPH ABS # 0.54 K/uL (1.2-3.4); MEAN CELL VOLUME 94.3 fL (80-100); MEAN CORPUSCULAR HEMOGLOBIN 33.7 pg (25-34); MEAN CORPUSCULAR HGB CONC 35.7 g/dl (32-36); MEAN PLATELET VOLUME 8.7 fL (7.4-10.4); MONO % 11.8 %; NEUT % 68.2 %; PLATELET COUNT 138 K/uL (130-400); RED BLOOD COUNT 3.15 M/uL (4.2-5.4); WHITE BLOOD COUNT 3.14 K/uL (4.8-10.8)
[2016-07-10 08:34] LABS: CALCIUM 9.5 mg/dl (8.5-10.1); CREATININE 0.57 mg/dl (0.60-1.20); MAGNESIUM 2.4 mg/dl (1.8-2.4); POTASSIUM 3.9 mmol/L (3.5-5.1)
[2016-07-10] MEDS: CALCIUM 600MG + VIT D 400 IU TAB PO SCH (08:50)
[2016-07-10] MEDS: CHOLECALCIFEROL 1000 INTER.UNIT TAB PO SCH (08:50)
[2016-07-10] MEDS: ENOXAPARIN 80 MG/0.8 ML SYR SQ SCH (09:00)
[2016-07-10] MEDS ORDERED: HALOPERIDOL 1 MG TAB PO ONE (09:15)
--- NOTE | 2016-07-10 09:21 | Hospitalist Progress Note ---
Hospitalist Progress Note Date of Service Jul 10, 2016. Subjective Pt evaluation today including: conversation w/ patient, physical exam, chart review, lab review, review of studies, review of inpatient medication list Pain: c/o right shoulder pain Patient remains confused. She is calm and cooperative and is able to tell me that she had brain cancer and underwent surgery, but doesn't know when this happened. She is also able to tell me that she fell and broke her arm, but believes this happened when she was 14 years old and living with her father. She couldn't tolerate an MRI due to confusion and not being able to lay still last evening. Medications Medications (Trade) Dose Ordered Sig/Wilver Route Start Time Stop Time Status Last Admin Dose Admin Sodium Chloride (Nss 500ml) 500 ml @ 999 mls/hr Q31M STAT IV 07/09/16 17:42 07/09/16 18:12 DC 07/09/16 17:48 999 MLS/HR Ceftriaxone Sodium (Rocephin Inj) 1 gm NOW STAT IV 07/09/16 18:08 07/09/16 18:10 DC 07/09/16 18:50 1 GM Calcium/Vitamin D (Caltrate Plus Tab) 1 tab DAILY PO 07/10/16 09:00 08/09/16 08:59 07/10/16 08:50 1 TAB Cholecalciferol (Vitamin D Tab) 1,000 inter.unit DAILY PO 07/10/16 09:00 08/09/16 08:59 07/10/16 08:50 1,000 INTER.UNIT Docusate Sodium (coLACE CAP) 100 mg BID PO 07/09/16 21:00 08/08/16 20:59 07/10/16 08:50 100 MG Levetiracetam (Keppra Tab) 500 mg BID PO 07/09/16 21:00 08/08/16 20:59 07/10/16 08:49 500 MG Oxycodone HCl (Roxicodone Immediate Rel Tab) 5 mg Q4H PRN PO 07/09/16 19:30 07/23/16 19:29 07/09/16 21:19 5 MG Simvastatin 10 mg 10 mg QPM PO 07/09/16 21:00 08/08/16 20:59 07/10/16 00:16 10 MG Vancomycin HCl/ Sodium Chloride (Vancomycin Inj/ Nss 250ml) 272 ml @ 125 mls/hr TODAY@2245 ONCE IV 07/09/16 22:45 07/10/16 00:55 DC 07/10/16 00:15 125 MLS/HR Objective Vital Signs Date Time Temp Pulse Resp B/P Pulse Ox O2 Delivery O2 Flow Rate FiO2 07/10/16 07:37 36.6 82 16 146/74 98 Room Air 07/10/16 04:15 37.0 81 16 147/81 97 Room Air 07/10/16 04:00 Room Air 07/10/16 00:57 Room Air 07/09/16 22:35 36.3 92 18 143/75 96 Room Air 07/09/16 21:49 97 20 168/83 93 07/09/16 19:29 97 20 144/95 93 Room Air 07/09/16 18:42 97 18 148/84 97 Room Air 07/09/16 18:37 97 22 07/09/16 18:37 96 07/09/16 18:32 98 18 07/09/16 18:27 94 20 07/09/16 18:22 98 17 07/09/16 18:17 96 18 07/09/16 18:12 97 17 07/09/16 18:07 97 17 07/09/16 18:02 99 17 07/09/16 17:57 97 18 156/80 98 Room Air 07/09/16 17:57 99 22 07/09/16 17:55 156/80 07/09/16 14:47 104 19 07/09/16 14:42 106 19 07/09/16 14:37 104 20 96 07/09/16 14:36 107 07/09/16 14:01 36.6 113 17 123/66 96 Room Air Physical Exam General Appearance: no apparent distress Eyes: sclerae normal Neck: no JVD Respiratory/Chest: chest non-tender, lungs clear, no respiratory distress Cardiovascular: regular rate, rhythm, no murmur Abdomen: non tender, soft Extremities: + pertinent finding (right arm in sling) Neurologic/Psychiatric: alert, + pertinent finding (oriented to self, reads off the whiteboard in her room when I ask the date/year, not oriented to place) Skin: warm/dry Laboratory Results Last 24 Hours Test 07/09/16 14:50 07/09/16 16:15 07/10/16 02:00 07/10/16 07:41 White Blood Count 4.65 K/uL 3.14 K/uL Red Blood Count 3.36 M/uL 3.15 M/uL Hemoglobin 11.2 g/dL 10.6 g/dL Hematocrit 32.0 % 29.7 % Mean Corpuscular Volume 95.2 fL 94.3 fL Mean Corpuscular Hemoglobin 33.3 pg 33.7 pg Mean Corpuscular Hemoglobin Concent 35.0 g/dl 35.7 g/dl Platelet Count 149 K/uL 138 K/uL Mean Platelet Volume 9.0 fL 8.7 fL Neutrophils (%) (Auto) 73.4 % 68.2 % Lymphocytes (%) (Auto) 11.8 % 17.2 % Monocytes (%) (Auto) 12.7 % 11.8 % Eosinophils (%) (Auto) 1.5 % 2.2 % Basophils (%) (Auto) 0.2 % 0.3 % Neutrophils # (Auto) 3.41 K/uL 2.14 K/uL Lymphocytes # (Auto) 0.55 K/uL 0.54 K/uL Monocytes # (Auto) 0.59 K/uL 0.37 K/uL Eosinophils # (Auto) 0.07 K/uL 0.07 K/uL Basophils # (Auto) 0.01 K/uL 0.01 K/uL RDW Standard Deviation 51.5 fL 50.6 fL RDW Coefficient of Variation 15.1 % 15.0 % Immature Granulocyte % (Auto) 0.4 % 0.3 % Immature Granulocyte # (Auto) 0.02 K/uL 0.01 K/uL Prothrombin Time 10.7 SECONDS Prothromb Time International Ratio 1.0 Activated Partial Thromboplast Time 26.6 SECONDS Partial Thromboplastin Ratio 1.0 Sodium Level 139 mmol/L 141 mmol/L Potassium Level 4.0 mmol/L 3.9 mmol/L Chloride Level 100 mmol/L 104 mmol/L Carbon Dioxide Level 29 mmol/L 25 mmol/L Anion Gap 10.0 mmol/L 12.0 mmol/L Blood Urea Nitrogen 17 mg/dl 11 mg/dl Creatinine 0.84 mg/dl 0.57 mg/dl Est Creatinine Clear Calc Drug Dose 36.5 ml/min 52.7 ml/min Estimated GFR () 75.5 100.8 Estimated GFR (Non- 65.2 86.9 BUN/Creatinine Ratio 19.8 20.0 Random Glucose 130 mg/dl 107 mg/dl Calcium Level 10.2 mg/dl 9.5 mg/dl Total Bilirubin 0.6 mg/dl Direct Bilirubin 0.2 mg/dl Aspartate Amino Transf (AST/SGOT) 11 U/L Alanine Aminotransferase (ALT/SGPT) 16 U/L Alkaline Phosphatase 67 U/L Troponin I < 0.015 ng/ml < 0.015 ng/ml Total Protein 6.9 gm/dl Albumin 3.4 gm/dl Urine Color YELLOW Urine Appearance CLEAR Urine pH 6.5 Urine Specific [place] 1.012 Urine Protein NEG Urine Glucose (UA) NEG Urine Ketones NEG Urine Occult Blood NEG Urine Nitrite POS Urine Bilirubin NEG Urine Urobilinogen NEG Urine Leukocyte Esterase NEG Urine WBC (Auto) 1-5 /hpf Urine RBC (Auto) 0-4 /hpf Urine Hyaline Casts (Auto) 0 /lpf Urine Epithelial Cells (Auto) 0-5 /lpf Urine Bacteria (Auto) 2+ Total Creatine Kinase 33 U/L Creatine Kinase MB < 0.5 ng/ml Creatine Kinase MB Ratio Magnesium Level 2.4 mg/dl Assessment and Plan (1) Toxic metabolic encephalopathy Assessment & Plan: Start low dose haloperidol. Continue treatment of suspected UTI. Try to avoid meds that could increase confusion, which may be difficult as she complains of severe pain from the humerus fracture. Encourage OOB, increased activity, frequent reorientation. (2) UTI (urinary tract infection) Assessment & Plan: Continue empiric abx pending blood/urine culture results. (3) Glioblastoma multiforme Assessment & Plan: Will obtain MRI brain when she can tolerate. Await further recommendations from Oncology service. (4) Fracture of neck of humerus Assessment & Plan: Being managed conservatively. Continue with sling and analgesics. (5) History of pulmonary embolus (PE) Assessment & Plan: Continue Lovenox. (6) Anemia Assessment & Plan: Stable, will follow H&H. (7) Hypothyroidism Assessment & Plan: Continue Synthroid.
--- NOTE | 2016-07-10 09:40 | Oncology Consultation ---
Oncology/Heme Consultation Date of Consultation: Jul 10, 2016. Attending Physician: Cj Ness MD Reason for Consultation: History of glioblastoma Altered mentation History of Present Illness Ms. Bowers is an 80-year-old female that in October of last year was diagnosed as having grade 4 glioblastoma multiforme. She is status post resection and then status post radiation therapy plus temozolomide. Unfortunately in the fall of last year an MRI of the head demonstrated progression and she has been on Avastin since early May. Her last MRI done at [facility] on June 12 showed stable disease. There has been concerns however that her mentation has somewhat changed. She did fall recently and developed a right humeral neck fracture on June 29. There has been an occasional use of a narcotic since then. Her arm is in a sling. She was admitted for evaluation of this altered mental status. In the fall also of last year she would develop changes consistent with a pulmonary embolus. There has been no documented seizure activity. Past Medical/Surgical History Medical Problems: (1) Altered mental status Status: Acute (2) Back muscle spasm Status: Acute (3) Brain mass Status: Acute (4) Confusion Status: Acute (5) Dehydration Status: Acute (6) Failure to thrive Status: Acute (7) Generalized weakness Status: Acute (8) Humerus fracture Status: Acute (9) Hypophosphatemia Status: Acute (10) Nausea Status: Acute (11) UTI (urinary tract infection) Status: Acute (12) Vasogenic brain edema Status: Acute Family History Patient reports no known family medical history. Social History Smoking Status: Never Smoker Alcohol Use: none Marital Status: Housing Status: lives with significant other Occupation Status: retired Allergies Coded Allergies: Lactose (Unverified Allergy, Unknown, ., 07/09/16) Penicillins (Unverified Allergy, Unknown, ., 07/09/16) Sulfamethoxazole w/Trimethoprim (Verified Adverse Reaction, Unknown, nausea, 07/09/16) allscripts Uncoded Allergies: ENTEX (Adverse Reaction, Unknown, nausea, 09/12/15) allscripts Home Medications Scheduled Calcium Carbonate-Vitamin D W/ (Caltrate 600 Plus), 1 TAB PO DAILY Cholecalciferol (Vitamin D 1000 Unit), 1,000 INTER.UNIT PO DAILY Docusate Sodium (Docusate Sodium), 1 CAP PO BID Enoxaparin (Lovenox), 80 MG SQ Q24H Levetiracetam (Keppra), 500 MG PO BID Levothyroxine Sodium (Levothyroxine Sodium), 1 TAB PO DAILY Lidocaine (Lidoderm Patch 5%), 2 PATCH EXT DAILY@0700 Simvastatin (Zocor), 10 MG PO QPM Scheduled PRN Lorazepam (Ativan), 0.5 MG PO DAILY PRN for Anxiety Oxycodone Ir (Roxicodone Ir), 5 MG PO Q4H PRN for Severe Pain Senna/Docusate Sod (Senokot S), 1 TAB PO DAILY PRN for Constipation Current Inpatient Medications Current Inpatient Medications Medications (Trade) Dose Ordered Sig/Wilver Route Start Time Stop Time Status Last Admin Dose Admin Acetaminophen (Tylenol Tab) 650 mg Q4H PRN PO 07/09/16 19:30 08/08/16 19:29 Al Hydrox/Mg Hydrox/Simethicone (Maalox Max Susp) 15 ml Q4H PRN PO 07/09/16 19:30 08/08/16 19:29 Magnesium Hydroxide (Milk Of Magnesia Susp) 30 ml Q6H PRN PO 07/09/16 19:30 08/08/16 19:29 Ondansetron HCl (Zofran Inj) 4 mg Q6H PRN IV 07/09/16 19:30 08/08/16 19:29 Calcium/Vitamin D (Caltrate Plus Tab) 1 tab DAILY PO 07/10/16 09:00 08/09/16 08:59 07/10/16 08:50 1 TAB Cholecalciferol (Vitamin D Tab) 1,000 inter.unit DAILY PO 07/10/16 09:00 08/09/16 08:59 07/10/16 08:50 1,000 INTER.UNIT Docusate Sodium (coLACE CAP) 100 mg BID PO 07/09/16 21:00 08/08/16 20:59 07/10/16 08:50 100 MG Enoxaparin Sodium (Lovenox Inj) 80 mg Q24H SQ 07/10/16 09:00 08/09/16 08:59 Levetiracetam (Keppra Tab) 500 mg BID PO 07/09/16 21:00 08/08/16 20:59 07/10/16 08:49 500 MG Levothyroxine Sodium (Synthroid Tab) 100 mcg DAILYBB PO 07/10/16 06:30 08/09/16 06:59 Oxycodone HCl (Roxicodone Immediate Rel Tab) 5 mg Q4H PRN PO 07/09/16 19:30 07/23/16 19:29 07/09/16 21:19 5 MG Senna/Docusate Sodium (Senokot S Tab) 1 tab DAILY PRN PO 07/09/16 19:30 08/08/16 19:29 Simvastatin 10 mg 10 mg QPM PO 07/09/16 21:00 08/08/16 20:59 07/10/16 00:16 10 MG Vancomycin HCl/ Sodium Chloride (Vancomycin Inj/ Nss 250ml) 265 ml @ 125 mls/hr Q24H IV 07/10/16 22:00 07/19/16 21:59 Vancomycin HCl 1 ea 1 ea UD PRN N/A 07/09/16 21:45 08/08/16 21:44 Ceftriaxone Sodium/Dextrose (Rocephin Inj/ Dextrose Add-[place] 50ML) 50 ml @ 100 mls/hr Q24H IV 07/10/16 18:00 07/19/16 17:59 Review of Systems Constitutional: Negative for weight loss, night sweats, or fever Eyes: Negative for event change of vision ENT: Negative for epistaxis, nasal discharge, sore throat, or deafness Cardiovascular: Negative for chest pain, palpitations, dizziness, diaphoresis Respiratory: Negative for new shortness of breath,hemoptysis, or purulent cough Gastrointestinal: Negative for diarrhea, hematemesis, melena, nausea, vomiting , or dyspepsia Integumentary (skin): Negative for rash or jaundice discoloration Genitourinary: Negative for urinary frequency, hematuria, or dysuria Neurological: Negative for weakness, seizure activity, headache, or dizziness. She states that she is able to control her bowel and bladder. She feels that she is more medically cleared now than she has been before for although this is difficult to be certain. Lymphatic/Hematologic: Negative for petechiae, bleeding or new adenopathy Musculoskeletal: Negative for new joint or back pain Allergic/Immunologic: Negative for unusual rash or pruritis. Physical Exam Date Time Temp Pulse Resp B/P Pulse Ox O2 Delivery O2 Flow Rate FiO2 07/10/16 07:37 36.6 82 16 146/74 98 Room Air 07/10/16 04:15 37.0 81 16 147/81 97 Room Air 07/10/16 04:00 Room Air 07/10/16 00:57 Room Air 07/09/16 22:35 36.3 92 18 143/75 96 Room Air 07/09/16 21:49 97 20 168/83 93 07/09/16 19:29 97 20 144/95 93 Room Air 07/09/16 18:42 97 18 148/84 97 Room Air 07/09/16 18:37 97 22 07/09/16 18:37 96 07/09/16 18:32 98 18 07/09/16 18:27 94 20 07/09/16 18:22 98 17 07/09/16 18:17 96 18 07/09/16 18:12 97 17 07/09/16 18:07 97 17 07/09/16 18:02 99 17 07/09/16 17:57 97 18 156/80 98 Room Air 07/09/16 17:57 99 22 07/09/16 17:55 156/80 07/09/16 14:47 104 19 07/09/16 14:42 106 19 07/09/16 14:37 104 20 96 07/09/16 14:36 107 07/09/16 14:01 36.6 113 17 123/66 96 Room Air Constitutional: vitals are stable. Thin pleasant female oriented 2 Eyes: Eyes are HARSHIL EOMI without conjuctival erythema or icterus. ENT: External examination was negative for masses. Neck: Negative for masses or palpable thyromegaly Respiratory: Lung sounds were generally clear bilaterally Cardiovascular: Heart was RRR without significant murmur, gallops aoe rubs Gastrointestinal: No palpable hepatic or splenomegaly. The abdomen was soft with normal bowel sounds. Lymphatic system: there was no palpable peripheral lymphadenopathy Musculoskeletal System: The musculoskeletal system seemed concordant with age. Skin: The skin was negative for jaundice. Neurologic exam: The exam was negative for any focal findings. Deep tendon reflexes were equal and symmetrical. Mentation is not very clear Psychiatric exam: Was essentially negative with normal mood and effect. Breast exam: Not done Extremities her right arm is in a sling Laboratory Results Last 24 Hours Test 07/09/16 14:50 07/09/16 16:15 07/10/16 02:00 07/10/16 07:41 White Blood Count 4.65 K/uL 3.14 K/uL Red Blood Count 3.36 M/uL 3.15 M/uL Hemoglobin 11.2 g/dL 10.6 g/dL Hematocrit 32.0 % 29.7 % Mean Corpuscular Volume 95.2 fL 94.3 fL Mean Corpuscular Hemoglobin 33.3 pg 33.7 pg Mean Corpuscular Hemoglobin Concent 35.0 g/dl 35.7 g/dl Platelet Count 149 K/uL 138 K/uL Mean Platelet Volume 9.0 fL 8.7 fL Neutrophils (%) (Auto) 73.4 % 68.2 % Lymphocytes (%) (Auto) 11.8 % 17.2 % Monocytes (%) (Auto) 12.7 % 11.8 % Eosinophils (%) (Auto) 1.5 % 2.2 % Basophils (%) (Auto) 0.2 % 0.3 % Neutrophils # (Auto) 3.41 K/uL 2.14 K/uL Lymphocytes # (Auto) 0.55 K/uL 0.54 K/uL Monocytes # (Auto) 0.59 K/uL 0.37 K/uL Eosinophils # (Auto) 0.07 K/uL 0.07 K/uL Basophils # (Auto) 0.01 K/uL 0.01 K/uL RDW Standard Deviation 51.5 fL 50.6 fL RDW Coefficient of Variation 15.1 % 15.0 % Immature Granulocyte % (Auto) 0.4 % 0.3 % Immature Granulocyte # (Auto) 0.02 K/uL 0.01 K/uL Prothrombin Time 10.7 SECONDS Prothromb Time International Ratio 1.0 Activated Partial Thromboplast Time 26.6 SECONDS Partial Thromboplastin Ratio 1.0 Sodium Level 139 mmol/L 141 mmol/L Potassium Level 4.0 mmol/L 3.9 mmol/L Chloride Level 100 mmol/L 104 mmol/L Carbon Dioxide Level 29 mmol/L 25 mmol/L Anion Gap 10.0 mmol/L 12.0 mmol/L Blood Urea Nitrogen 17 mg/dl 11 mg/dl Creatinine 0.84 mg/dl 0.57 mg/dl Est Creatinine Clear Calc Drug Dose 36.5 ml/min 52.7 ml/min Estimated GFR () 75.5 100.8 Estimated GFR (Non- 65.2 86.9 BUN/Creatinine Ratio 19.8 20.0 Random Glucose 130 mg/dl 107 mg/dl Calcium Level 10.2 mg/dl 9.5 mg/dl Total Bilirubin 0.6 mg/dl Direct Bilirubin 0.2 mg/dl Aspartate Amino Transf (AST/SGOT) 11 U/L Alanine Aminotransferase (ALT/SGPT) 16 U/L Alkaline Phosphatase 67 U/L Troponin I < 0.015 ng/ml < 0.015 ng/ml Total Protein 6.9 gm/dl Albumin 3.4 gm/dl Urine Color YELLOW Urine Appearance CLEAR Urine pH 6.5 Urine Specific [place] 1.012 Urine Protein NEG Urine Glucose (UA) NEG Urine Ketones NEG Urine Occult Blood NEG Urine Nitrite POS Urine Bilirubin NEG Urine Urobilinogen NEG Urine Leukocyte Esterase NEG Urine WBC (Auto) 1-5 /hpf Urine RBC (Auto) 0-4 /hpf Urine Hyaline Casts (Auto) 0 /lpf Urine Epithelial Cells (Auto) 0-5 /lpf Urine Bacteria (Auto) 2+ Total Creatine Kinase 33 U/L Creatine Kinase MB < 0.5 ng/ml Creatine Kinase MB Ratio Magnesium Level 2.4 mg/dl Assessment & Plan Lab work and CT scan of the head thus far really unremarkable. Would pursue an MRI of the head with contrast. The only MRI we have to refer to from this hospital is in October of last year. Would like that comparison done at least and we can try to get the films of the MRIs done at [place] in May. Pending that result perhaps a small dose of oral Decadron 2-4 mg 3-4 times a day may be beneficial but lets first await the MRI result.
[2016-07-10] MEDS: ACETAMINOPHEN 325 MG TAB PO PRN (13:16)
[2016-07-10] MEDS: CEFTRIAXONE SOD INJ 1 GM in DEXTROSE 5% ADD-VANTAGE 50ML 50 ML IV SCH (17:56)
[2016-07-10] MEDS: OXYCODONE HCL IR 5 MG TAB (IMMEDIATE RELEASE) PO PRN (20:42)
[2016-07-10] MEDS ORDERED: GADAVIST IV PRN (21:45)
--- NOTE | 2016-07-10 22:08 | DIAGNOSTIC IMAGING REPORT ---
MRI OF THE BRAIN WITHOUT AND WITH IV CONTRAST CLINICAL HISTORY: Altered mental status. Glioblastoma multiforme. COMPARISON STUDY: MRI of the brain November 21, [address] July 09, 2016. TECHNIQUE: Utilizing a 1.5 Chantal magnet and dedicated coil, multiplanar, multiecho imaging of the brain was performed pre and postcontrast administration. IV administration of 4.5 mL of Gadavist contrast was uneventful. FINDINGS: There are no areas of restricted diffusion. The ventricular system is unremarkable. The basilar cisterns are patent. There are postsurgical findings consistent with a right-sided craniotomy. There is moderate edema within the adjacent soft tissues. This has significantly diminished since MRI of November 21, 2015. There are several areas of irregular enhancement within the operative bed that measure up to 1.7 cm. Comparison with prior MRI is somewhat difficult given differences in technique. No additional sites of abnormal enhancement are present. Calvarial signal is maintained. Orbits and sinuses are unremarkable. IMPRESSION: 1. No evidence of acute infarction. 2. Status post right-sided craniotomy. Significant interval decrease in edema adjacent to the operative bed since MRI of November 21, 2015 with interval improvement in mass effect. This suggests a treatment response. Mild multifocal peripheral enhancement within the operative bed is suspicious for residual tumor although radiation necrosis could appear similar. The extent of enhancement is relatively similar to prior MRI although comparison is difficult given differences in technique. Electronically signed by: [place] M.D. 07/10/2016 10:06 PM Dictated Date/Time: 07/10/2016 9:56 PM
[2016-07-10] MEDS: VANCOMYCIN INJ 750 MG in SODIUM CHLORIDE 0.9% 250ML 250 ML IV SCH (22:27)
[2016-07-11 00:20] VITALS: BP 136/75; PULSE 92; TEMP 36.7; O2SAT 97
[2016-07-11] MEDS: OXYCODONE HCL IR 5 MG TAB (IMMEDIATE RELEASE) PO PRN ×3 (00:51→12:34)
[2016-07-11] MEDS: LEVOTHYROXINE 100 MCG TAB PO SCH (05:44)
[2016-07-11 06:11] LABS: BASO % 0.7 %; BASO ABS # 0.02 K/uL (0-0.2); COMPLETE YES; EOS % 4.3 %; HEMATOCRIT 30.1 % (37-47); IG% 1.1 %; LYMPH % 22.5 %; LYMPH ABS # 0.62 K/uL (1.2-3.4); MEAN CORPUSCULAR HEMOGLOBIN 32.8 pg (25-34); MEAN CORPUSCULAR HGB CONC 34.6 g/dl (32-36); MEAN PLATELET VOLUME 8.6 fL (7.4-10.4); MONO % 16.3 %; NEUT % 55.1 %; PLATELET COUNT 141 K/uL (130-400); RED BLOOD COUNT 3.17 M/uL (4.2-5.4); WHITE BLOOD COUNT 2.76 K/uL (4.8-10.8)
[2016-07-11 06:52] LABS: BUN/CREATININE RATIO 17.4 (10-20); CALCIUM 8.9 mg/dl (8.5-10.1); CREATININE 0.64 mg/dl (0.60-1.20); POTASSIUM 3.7 mmol/L (3.5-5.1)
[2016-07-11 08:10] VITALS: BP 148/75; PULSE 95; TEMP 36.6; O2SAT 96
[2016-07-11] MEDS: LEVETIRACETAM 500 MG TAB PO SCH ×2 (08:26→20:36)
[2016-07-11] MEDS: DOCUSATE SODIUM 100 MG CAP PO SCH ×2 (08:26→20:36)
[2016-07-11] MEDS: CALCIUM 600MG + VIT D 400 IU TAB PO SCH (08:26)
[2016-07-11] MEDS: CHOLECALCIFEROL 1000 INTER.UNIT TAB PO SCH (08:26)
[2016-07-11] MEDS: ACETAMINOPHEN 325 MG TAB PO PRN (08:27)
[2016-07-11] MEDS: ENOXAPARIN 80 MG/0.8 ML SYR SQ SCH (08:31)
--- NOTE | 2016-07-11 10:19 | Hematology/Oncology Prog Note ---
Hematology/Onc Progress Note Date of Service Jul 11, 2016. Diagnoses Glioblastoma multiforme Altered mentation Medications Medications Administered Medications (Trade) Dose Ordered Sig/Wilver Route Start Time Stop Time Status Last Admin Dose Admin Sodium Chloride (Nss 500ml) 500 ml @ 999 mls/hr Q31M STAT IV 07/09/16 17:42 07/09/16 18:12 DC 07/09/16 17:48 999 MLS/HR Ceftriaxone Sodium (Rocephin Inj) 1 gm NOW STAT IV 07/09/16 18:08 07/09/16 18:10 DC 07/09/16 18:50 1 GM Acetaminophen (Tylenol Tab) 650 mg Q4H PRN PO 07/09/16 19:30 08/08/16 19:29 07/11/16 08:27 650 MG Calcium/Vitamin D (Caltrate Plus Tab) 1 tab DAILY PO 07/10/16 09:00 08/09/16 08:59 07/11/16 08:26 1 TAB Cholecalciferol (Vitamin D Tab) 1,000 inter.unit DAILY PO 07/10/16 09:00 08/09/16 08:59 07/11/16 08:26 1,000 INTER.UNIT Docusate Sodium (coLACE CAP) 100 mg BID PO 07/09/16 21:00 08/08/16 20:59 07/11/16 08:26 100 MG Enoxaparin Sodium (Lovenox Inj) 80 mg Q24H SQ 07/10/16 09:00 08/09/16 08:59 07/11/16 08:31 80 MG Levetiracetam (Keppra Tab) 500 mg BID PO 07/09/16 21:00 08/08/16 20:59 07/11/16 08:26 500 MG Levothyroxine Sodium (Synthroid Tab) 100 mcg DAILYBB PO 07/10/16 06:30 08/09/16 06:59 07/11/16 05:44 100 MCG Oxycodone HCl (Roxicodone Immediate Rel Tab) 5 mg Q4H PRN PO 07/09/16 19:30 07/23/16 19:29 07/11/16 05:45 5 MG Simvastatin 10 mg 10 mg QPM PO 07/09/16 21:00 08/08/16 20:59 07/10/16 20:44 10 MG Vancomycin HCl 750 mg/Sodium Chloride 265 ml @ 125 mls/hr Q24H IV 07/10/16 22:00 07/19/16 21:59 07/10/16 22:27 125 MLS/HR Vancomycin HCl 1100 mg/Sodium Chloride 272 ml @ 125 mls/hr TODAY@2245 ONCE IV 07/09/16 22:45 07/10/16 00:55 DC 07/10/16 00:15 125 MLS/HR Ceftriaxone Sodium/Dextrose (Rocephin Inj/ Dextrose Add-[place] 50ML) 50 ml @ 100 mls/hr Q24H IV 07/10/16 18:00 07/19/16 17:59 07/10/16 17:56 100 MLS/HR Haloperidol (Haldol Tab) 1 mg NOW ONCE PO 07/10/16 09:15 07/10/16 09:16 DC 07/10/16 09:39 1 MG Subjective She remains confused. Oriented 1. Distant memory seems intact. She really has no new complaints Review of Systems: Constitutional: Negative for night sweats, or fever Eyes: Negative for event change of vision ENT: Negative for epistaxis, nasal discharge, sore throat, or deafness Cardiovascular: Negative for chest pain, palpitations, dizziness, diaphoresis Respiratory: Negative for new shortness of breath,hemoptysis, or purulent cough Gastrointestinal: Negative for diarrhea, hematemesis, melena, nausea, vomiting , or dyspepsia Integumentary (skin): Negative for rash or jaundice discoloration Genitourinary: Negative for urinary frequency, hematuria, or dysuria Neurological: Negative for weakness, seizure activity, headache, or dizziness Lymphatic/Hematologic: Negative for petechiae, bleeding or new adenopathy Musculoskeletal: Negative for new joint or back pain Allergic/Immunologic: Negative for unusual rash or pruritis. Vital Signs Vital Signs Past 12 Hours Date Time Temp Pulse Resp B/P Pulse Ox O2 Delivery O2 Flow Rate FiO2 07/11/16 08:10 36.6 95 18 148/75 96 Room Air 07/11/16 08:00 Room Air 07/11/16 04:00 Room Air 07/11/16 00:20 36.7 92 20 136/75 97 Room Air 07/11/16 00:00 Room Air Physical Exam Constitutional: vitals are stable. Eyes: Eyes are HARSHIL EOMI without conjuctival erythema or icterus. ENT: External examination was negative for masses. Neck: Negative for masses or palpable thyromegaly Respiratory: Lung sounds were generally clear bilaterally Cardiovascular: Heart was RRR without significant murmur, gallops aoe rubs Gastrointestinal: No palpable hepatic or splenomegaly. The abdomen was soft with normal bowel sounds. Lymphatic system: there was no palpable peripheral lymphadenopathy Musculoskeletal System: Right arm is in a sling Skin: The skin was negative for jaundice. Neurologic exam: The exam was negative for any focal findings. Deep tendon reflexes were equal and symmetrical. Mentation is altered Psychiatric exam: Difficult to assess. Extremities: Negative for edema, right arm in sling Laboratory Last 24 Hours Test 07/11/16 05:55 White Blood Count 2.76 K/uL Red Blood Count 3.17 M/uL Hemoglobin 10.4 g/dL Hematocrit 30.1 % Mean Corpuscular Volume 95.0 fL Mean Corpuscular Hemoglobin 32.8 pg Mean Corpuscular Hemoglobin Concent 34.6 g/dl Platelet Count 141 K/uL Mean Platelet Volume 8.6 fL Neutrophils (%) (Auto) 55.1 % Lymphocytes (%) (Auto) 22.5 % Monocytes (%) (Auto) 16.3 % Eosinophils (%) (Auto) 4.3 % Basophils (%) (Auto) 0.7 % Neutrophils # (Auto) 1.52 K/uL Lymphocytes # (Auto) 0.62 K/uL Monocytes # (Auto) 0.45 K/uL Eosinophils # (Auto) 0.12 K/uL Basophils # (Auto) 0.02 K/uL RDW Standard Deviation 51.7 fL RDW Coefficient of Variation 15.1 % Immature Granulocyte % (Auto) 1.1 % Immature Granulocyte # (Auto) 0.03 K/uL Sodium Level 140 mmol/L Potassium Level 3.7 mmol/L Chloride Level 104 mmol/L Carbon Dioxide Level 26 mmol/L Anion Gap 10.0 mmol/L Blood Urea Nitrogen 11 mg/dl Creatinine 0.64 mg/dl Est Creatinine Clear Calc Drug Dose 46.9 ml/min Estimated GFR () 97.0 Estimated GFR (Non- 83.7 BUN/Creatinine Ratio 17.4 Random Glucose 114 mg/dl Calcium Level 8.9 mg/dl Assessment & Plan We reviewed the MRI done here and with some difficulty was able to bring up the MRI done at [place] the third week of May. If anything the changes are stable. The comparison also suggested actually the disease might be less impressive. Certainly that it's difficult to blame her worsening mentation on worsening tumor. 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 I reviewed with the [id number] that there is vernon little that we can do that might change or help the situation. We will continue treating her in clinic with Avastin as before. The focus I believe now needs to be on arrangements for discharge. I suspect that she will need 24-hour care. Again this was reviewed with the [id number] as well as the membership manager today. She will have a follow-up in our clinic.
[2016-07-11 14:59] VITALS: BP 154/78; PULSE 101; TEMP 36.6; O2SAT 94
--- NOTE | 2016-07-11 17:28 | Hospitalist Progress Note ---
Hospitalist Progress Note Date of Service Jul 11, 2016. Subjective Pt evaluation today including: conversation w/ patient, conversation w/ family , physical exam, chart review, lab review, review of inpatient medication list Patient drowsy and confused today. Medications Current Inpatient Medications Medications (Trade) Dose Ordered Sig/[place] Route Start Time Stop Time Status Last Admin Dose Admin Acetaminophen (Tylenol Tab) 650 mg Q4H PRN PO 07/09/16 19:30 08/08/16 19:29 07/11/16 08:27 650 MG Al Hydrox/Mg Hydrox/Simethicone (Maalox Max Susp) 15 ml Q4H PRN PO 07/09/16 19:30 08/08/16 19:29 Magnesium Hydroxide (Milk Of Magnesia Susp) 30 ml Q6H PRN PO 07/09/16 19:30 08/08/16 19:29 Ondansetron HCl (Zofran Inj) 4 mg Q6H PRN IV 07/09/16 19:30 08/08/16 19:29 Calcium/Vitamin D (Caltrate Plus Tab) 1 tab DAILY PO 07/10/16 09:00 08/09/16 08:59 07/11/16 08:26 1 TAB Cholecalciferol (Vitamin D Tab) 1,000 inter.unit DAILY PO 07/10/16 09:00 08/09/16 08:59 07/11/16 08:26 1,000 INTER.UNIT Docusate Sodium (coLACE CAP) 100 mg BID PO 07/09/16 21:00 08/08/16 20:59 07/11/16 08:26 100 MG Enoxaparin Sodium (Lovenox Inj) 80 mg Q24H SQ 07/10/16 09:00 08/09/16 08:59 07/11/16 08:31 80 MG Levetiracetam (Keppra Tab) 500 mg BID PO 07/09/16 21:00 08/08/16 20:59 07/11/16 08:26 500 MG Levothyroxine Sodium (Synthroid Tab) 100 mcg DAILYBB PO 07/10/16 06:30 08/09/16 06:59 07/11/16 05:44 100 MCG Oxycodone HCl (Roxicodone Immediate Rel Tab) 5 mg Q4H PRN PO 07/09/16 19:30 07/23/16 19:29 07/11/16 12:34 5 MG Senna/Docusate Sodium (Senokot S Tab) 1 tab DAILY PRN PO 07/09/16 19:30 08/08/16 19:29 Simvastatin 10 mg 10 mg QPM PO 07/09/16 21:00 08/08/16 20:59 07/10/16 20:44 10 MG Vancomycin HCl/ Sodium Chloride (Vancomycin Inj/ Nss 250ml) 265 ml @ 125 mls/hr Q24H IV 07/10/16 22:00 07/19/16 21:59 07/10/16 22:27 125 MLS/HR Vancomycin HCl 1 ea 1 ea UD PRN N/A 07/09/16 21:45 08/08/16 21:44 Ceftriaxone Sodium/Dextrose (Rocephin Inj/ Dextrose Add-[place] 50ML) 50 ml @ 100 mls/hr Q24H IV 07/10/16 18:00 07/19/16 17:59 07/10/16 17:56 100 MLS/HR Gadobutrol (Gadavist) 4 mmol UD PRN IV 07/10/16 21:45 07/14/16 21:44 Objective Vital Signs Date Time Temp Pulse Resp B/P Pulse Ox O2 Delivery O2 Flow Rate FiO2 07/11/16 15:54 Room Air 07/11/16 14:59 36.6 101 20 154/78 94 07/11/16 08:10 36.6 95 18 148/75 96 Room Air 07/11/16 08:00 Room Air 07/11/16 04:00 Room Air 07/11/16 00:20 36.7 92 20 136/75 97 Room Air 07/11/16 00:00 Room Air 07/10/16 20:19 36.6 91 18 122/76 96 Room Air 07/10/16 20:00 98 Room Air Physical Exam General Appearance: no apparent distress Eyes: sclerae normal Respiratory/Chest: lungs clear, no respiratory distress Cardiovascular: regular rate, rhythm Abdomen: non tender, soft Extremities: no pedal edema Neurologic/Psychiatric: + disoriented Skin: warm/dry Laboratory Results Last 24 Hours Test 07/11/16 05:55 White Blood Count 2.76 K/uL Red Blood Count 3.17 M/uL Hemoglobin 10.4 g/dL Hematocrit 30.1 % Mean Corpuscular Volume 95.0 fL Mean Corpuscular Hemoglobin 32.8 pg Mean Corpuscular Hemoglobin Concent 34.6 g/dl Platelet Count 141 K/uL Mean Platelet Volume 8.6 fL Neutrophils (%) (Auto) 55.1 % Lymphocytes (%) (Auto) 22.5 % Monocytes (%) (Auto) 16.3 % Eosinophils (%) (Auto) 4.3 % Basophils (%) (Auto) 0.7 % Neutrophils # (Auto) 1.52 K/uL Lymphocytes # (Auto) 0.62 K/uL Monocytes # (Auto) 0.45 K/uL Eosinophils # (Auto) 0.12 K/uL Basophils # (Auto) 0.02 K/uL RDW Standard Deviation 51.7 fL RDW Coefficient of Variation 15.1 % Immature Granulocyte % (Auto) 1.1 % Immature Granulocyte # (Auto) 0.03 K/uL Sodium Level 140 mmol/L Potassium Level 3.7 mmol/L Chloride Level 104 mmol/L Carbon Dioxide Level 26 mmol/L Anion Gap 10.0 mmol/L Blood Urea Nitrogen 11 mg/dl Creatinine 0.64 mg/dl Est Creatinine Clear Calc Drug Dose 46.9 ml/min Estimated GFR () 97.0 Estimated GFR (Non- 83.7 BUN/Creatinine Ratio 17.4 Random Glucose 114 mg/dl Calcium Level 8.9 mg/dl Assessment and Plan (1) Toxic metabolic encephalopathy Assessment & Plan: Likely related to underlying UTI or pain meds. Continue treatment for UTI. Try to avoid meds that could increase confusion, which may be difficult as she complains of severe pain from the humerus fracture. Encourage OOB, increased activity, frequent reorientation. (2) UTI (urinary tract infection) Assessment & Plan: Continue empiric abx pending blood/urine culture results. (3) Glioblastoma multiforme Assessment & Plan: MRI not significantly changed. This is unlikely to be causing her current increased confusion. (4) Fracture of neck of humerus Assessment & Plan: Being managed conservatively. Continue with sling and analgesics. (5) History of pulmonary embolus (PE) Assessment & Plan: Continue Lovenox. (6) Anemia Assessment & Plan: Stable, will follow H&H. (7) Hypothyroidism Assessment & Plan: Continue Synthroid. Discharge planning: home with home health
[2016-07-11] MEDS: CEFTRIAXONE SOD INJ 1 GM in DEXTROSE 5% ADD-VANTAGE 50ML 50 ML IV SCH (17:37)
[2016-07-11 19:42] VITALS: BP 144/76; PULSE 95; TEMP 36.8; O2SAT 96
[2016-07-11] MEDS: SIMVASTATIN 10 MG TAB PO SCH (20:36)
[2016-07-11] MEDS: VANCOMYCIN INJ 750 MG in SODIUM CHLORIDE 0.9% 250ML 250 ML IV SCH (21:41)
[2016-07-12] VITALS (7 sets, daily range): BP systolic 126–149; BP diastolic 65–79; PULSE 83–104; TEMP 36.3–37; O2SAT 91–97
[2016-07-12] MEDS: LEVOTHYROXINE 100 MCG TAB PO SCH (06:03)
[2016-07-12 07:18] LABS: BASO % 0.3 %; BASO ABS # 0.01 K/uL (0-0.2); COMPLETE YES; HEMATOCRIT 29.4 % (37-47); IG% 0.6 %; LYMPH % 18.6 %; MEAN CELL VOLUME 95.1 fL (80-100); MEAN CORPUSCULAR HGB CONC 34.7 g/dl (32-36); MEAN PLATELET VOLUME 8.6 fL (7.4-10.4); MONO % 11.1 %; NEUT % 65.4 %; PLATELET COUNT 159 K/uL (130-400); RED BLOOD COUNT 3.09 M/uL (4.2-5.4); WHITE BLOOD COUNT 3.23 K/uL (4.8-10.8)
[2016-07-12 07:49] LABS: BUN/CREATININE RATIO 21.6 (10-20); CREATININE 0.62 mg/dl (0.60-1.20); POTASSIUM 3.7 mmol/L (3.5-5.1)
[2016-07-12] MEDS: CALCIUM 600MG + VIT D 400 IU TAB PO SCH (08:20)
[2016-07-12] MEDS: DOCUSATE SODIUM 100 MG CAP PO SCH ×2 (08:20→20:04)
[2016-07-12] MEDS: ENOXAPARIN 80 MG/0.8 ML SYR SQ SCH (08:21)
[2016-07-12] MEDS: OXYCODONE HCL IR 5 MG TAB (IMMEDIATE RELEASE) PO PRN ×3 (08:21→20:03)
[2016-07-12] MEDS: CHOLECALCIFEROL 1000 INTER.UNIT TAB PO SCH (08:21)
[2016-07-12] MEDS: LEVETIRACETAM 500 MG TAB PO SCH ×2 (08:22→20:03)
[2016-07-12] MEDS ORDERED: CIPROFLOXACIN CONSULT ACTIVE PRN ×2 (16:00)
[2016-07-12] MEDS: CIPROFLOXACIN 500 MG TAB PO SCH (18:27)
--- NOTE | 2016-07-12 19:47 | Hospitalist Progress Note ---
Hospitalist Progress Note Date of Service Jul 12, 2016. Subjective overnight doing ok, no acute events Objective Vital Signs Date Time Temp Pulse Resp B/P Pulse Ox O2 Delivery O2 Flow Rate FiO2 07/12/16 18:47 36.4 96 20 134/76 97 07/12/16 15:39 Room Air 07/12/16 15:21 36.7 84 20 126/79 91 07/12/16 12:29 Room Air 07/12/16 11:47 36.7 94 20 149/77 95 07/12/16 07:59 36.3 90 20 147/65 97 07/12/16 07:35 Room Air 07/12/16 04:10 Room Air 07/12/16 03:58 36.9 89 18 149/76 96 Room Air 07/12/16 00:14 Room Air 07/12/16 00:10 37.0 104 18 129/73 94 Room Air 07/11/16 19:55 Room Air 07/11/16 19:42 36.8 95 16 144/76 96 Room Air Physical Exam General Appearance: no apparent distress Eyes: normal inspection ENT: hearing grossly normal Neck: supple Respiratory/Chest: chest non-tender, normal breath sounds Cardiovascular: regular rate, rhythm, no edema Abdomen: normal bowel sounds, non tender Neurologic/Psychiatric: + disoriented Skin: normal color Laboratory Results Last 24 Hours Test 07/12/16 06:42 White Blood Count 3.23 K/uL Red Blood Count 3.09 M/uL Hemoglobin 10.2 g/dL Hematocrit 29.4 % Mean Corpuscular Volume 95.1 fL Mean Corpuscular Hemoglobin 33.0 pg Mean Corpuscular Hemoglobin Concent 34.7 g/dl Platelet Count 159 K/uL Mean Platelet Volume 8.6 fL Neutrophils (%) (Auto) 65.4 % Lymphocytes (%) (Auto) 18.6 % Monocytes (%) (Auto) 11.1 % Eosinophils (%) (Auto) 4.0 % Basophils (%) (Auto) 0.3 % Neutrophils # (Auto) 2.11 K/uL Lymphocytes # (Auto) 0.60 K/uL Monocytes # (Auto) 0.36 K/uL Eosinophils # (Auto) 0.13 K/uL Basophils # (Auto) 0.01 K/uL RDW Standard Deviation 52.0 fL RDW Coefficient of Variation 15.2 % Immature Granulocyte % (Auto) 0.6 % Immature Granulocyte # (Auto) 0.02 K/uL Sodium Level 141 mmol/L Potassium Level 3.7 mmol/L Chloride Level 105 mmol/L Carbon Dioxide Level 26 mmol/L Anion Gap 10.0 mmol/L Blood Urea Nitrogen 13 mg/dl Creatinine 0.62 mg/dl Est Creatinine Clear Calc Drug Dose 49.0 ml/min Estimated GFR () 98.0 Estimated GFR (Non- 84.6 BUN/Creatinine Ratio 21.6 Random Glucose 105 mg/dl Calcium Level 9.0 mg/dl Assessment and Plan patient is Likely related to underlying UTI or pain meds. Continue treatment for UTI. Try to avoid meds that could increase confusion, which may be difficult as she complains of severe pain from 1 UTI: urine culture sensitive coming back, switch antibiotics to cipro. 2 Toxic metabolic encephalopathy: improving, according to daughter, patient is back to her baseline 3 Glioblastoma multiforme: F/u oncology 4 history of PE: continue lovenox 5 Anemia: stable, outpatient f/u 6 hypothyroidism: continue synthroid Discharge planning: patient is ready to discharge to home, but family isn't ready to bead picker her today, discussed with family, they promise that they will come to bead picker patient tomorrow.
[2016-07-12] MEDS: SIMVASTATIN 10 MG TAB PO SCH (20:03)
[2016-07-12] MEDS ORDERED: VANCOMYCIN TROUGH SCH (21:30)
[2016-07-13 04:00] VITALS: BP 137/80; PULSE 84; TEMP 36.7; O2SAT 97
[2016-07-13 07:27] VITALS: BP 148/77; PULSE 83; TEMP 36.7; O2SAT 98
[2016-07-13 07:29] LABS: CREATININE 0.58 mg/dl (0.60-1.20)
[2016-07-13] MEDS: DOCUSATE SODIUM 100 MG CAP PO SCH (07:52)
[2016-07-13] MEDS: LEVOTHYROXINE 100 MCG TAB PO SCH (07:52)
[2016-07-13] MEDS: CHOLECALCIFEROL 1000 INTER.UNIT TAB PO SCH (07:52)
[2016-07-13] MEDS: ENOXAPARIN 80 MG/0.8 ML SYR SQ SCH (07:53)
[2016-07-13] MEDS: CIPROFLOXACIN 500 MG TAB PO SCH (07:53)
[2016-07-13] MEDS: LEVETIRACETAM 500 MG TAB PO SCH (07:53)
[2016-07-13] MEDS: CALCIUM 600MG + VIT D 400 IU TAB PO SCH (07:53)
[2016-07-13] MEDS ORDERED: CPR500 PO (08:58)
--- NOTE | 2016-07-13 09:02 | Discharge Instructions ---
Discharge Instructions Admission Reason for Admission: Altered Mental Status Discharge Discharge Diagnosis / Problem: UTI , grade 4 glioblastoma multiforme Discharge Goals Goal(s): Decrease discomfort, Improve function, Increase independence, Improve disease control, Improve nutritional status, Learn about illness, Diagnostic testing, Therapeutic intervention Activity Recommendations Activity Limitations: resume your previous activity . Instructions / Follow-Up Instructions / Follow-Up please f/u your PCP in one week. please f/u your oncologist in two week. You need to have 24 hours care at home if you have fever, chest pain, new mental status change please call you PCP or go to ER Current Hospital Diet Patient's current hospital diet: Regular Diet Discharge Diet Recommended Diet: Regular Diet Pending Studies Studies pending at discharge: no Medical Emergencies . Who to Call and When: Medical Emergencies: If at any time you feel your situation is an emergency, please call 911 immediately. . Non-Emergent Contact Non-Emergency issues call your: Primary Care Provider . . "Provider Documentation" section prepared by Nafisa Green. VTE Core Measure Inpt VTE Proph given/why not?: Enoxaparin (Lovenox)SHARON, T.EVu Morales, SCD's
--- NOTE | 2016-07-13 09:25 | Discharge Summary ---
Discharge Summary Admission Date: Jul 09, 2016 at 19:48 Discharge Date: Jul 13, 2016 Discharge Disposition: Home with services Principal Diagnosis: UTI Problems/Secondary Diagnoses: grade 4 glioblastoma multiforme Immunizations: Have You Had Influenza Vaccine: No History of Tetanus Vaccine?: Yes History of Pneumococcal: No History of Hepatitis B Vaccine: No Medication Reconciliation New Medications: Ciprofloxacin (Ciprofloxacin HCl) 500 Mg Tab 500 MG PO Q12@0600,1800 for 2 Days, #5 TAB please take one tonight, then Bid for 2 days. Continued Medications: Calcium Carbonate-Vitamin D W/ (Caltrate 600 Plus) 1 Tab Tab 1 TAB PO DAILY, TAB Cholecalciferol (Vitamin D 1000 Unit) 1,000 Unit Cap 1000 INTER.UNIT PO DAILY, CAP Docusate Sodium (Docusate Sodium) 100 Mg Cap 1 CAP PO BID for 7 Days, #14 CAP Enoxaparin (Lovenox) 80 Mg/0.8 Ml Inj 80 MG SQ Q24H, SYR Levetiracetam (Keppra) 500 Mg Tab 500 MG PO BID, TAB Levothyroxine Sodium (Levothyroxine Sodium) 100 Mcg Tab 1 TAB PO DAILY for 90 Days, #90 TAB 3 Refills Lidocaine (Lidoderm Patch 5%) 1 Ea Tdsy 2 PATCH EXT DAILY@0700 Lorazepam (Ativan) 0.5 Mg Tab 0.5 MG PO DAILY PRN for Anxiety, TAB Oxycodone Ir (Roxicodone Ir) 5 Mg Tab 5 MG PO Q4H PRN for Severe Pain, TAB Senna/Docusate Sod (Senokot S) 1 Tab Tab 1 TAB PO DAILY PRN for Constipation, TAB Simvastatin (Zocor) 10 Mg Tab 10 MG PO QPM, 0 Refills Discharge Exam patient was seen and examed on the day of discharge, patient doesn't f/u commands, but according to family member, this is her baseline, PT/OT suggested she to go to SNF, but family member wants to take her home with home service. Physical Exam: General Appearance: no apparent distress Eyes: normal inspection ENT: hearing grossly normal Neck: supple Respiratory/Chest: chest non-tender, normal breath sounds Cardiovascular: regular rate, rhythm, no edema Abdomen / GI: normal bowel sounds, non tender, soft Extremities: no calf tenderness Neurologic/Psychiatric: + disoriented Skin: normal color Hospital Course Patient is an 80-year-old female with PMH of a glioblastoma that was resected in October 2015 that was sent to the ER from [facility] due to increased confusion. 1 UTI: UA showed positive nitrate and bacterial, initially patient was board covered with vancomycin and ceftriaxone. Lately urine culture results showed coag neg staph, according the sensitivity results, switched antibiotics to cipro. total antibiotic course will be 7 days. according to family member, patient's mental status is back to her baseline after couple days treatment. 2 Toxic metabolic encephalopathy: most likely related to UTI, oncology is on board, repeated brain MRI doesn't consider to relate to glioblastoma multiforme. according to daughter, on the day of discharge, patient is back to her baseline 3 Glioblastoma multiforme: stable during hospitalization, F/u oncology as outpatient. 4 history of PE: continue lovenox 5 Anemia: stable, outpatient f/u 6 hypothyroidism: continue synthroid patient will f/u PCP in one week and oncologist in two weeks. Total Time Spent: Greater than 30 minutes This includes examination of the patient, discharge planning, medication reconciliation, and communication with other providers. Discharge Instructions Please refer to the electronic Patient Visit Report (Discharge Instructions) for additional information. Additional Copies To Darrel Hernandez M.D.
[2016-07-13 09:53] VITALS: BP 148/77; PULSE 83; TEMP 36.7; O2SAT 98
--- NOTE | 2016-07-13 10:05 | Hematology/Oncology Prog Note ---
Hematology/Onc Progress Note Date of Service Jul 13, 2016. Diagnoses Glioblastoma multiforme Altered mentation Medications Medications Administered Medications (Trade) Dose Ordered Sig/Wilver Route Start Time Stop Time Status Last Admin Dose Admin Sodium Chloride (Nss 500ml) 500 ml @ 999 mls/hr Q31M STAT IV 07/09/16 17:42 07/09/16 18:12 DC 07/09/16 17:48 999 MLS/HR Ceftriaxone Sodium (Rocephin Inj) 1 gm NOW STAT IV 07/09/16 18:08 07/09/16 18:10 DC 07/09/16 18:50 1 GM Acetaminophen (Tylenol Tab) 650 mg Q4H PRN PO 07/09/16 19:30 08/08/16 19:29 07/11/16 08:27 650 MG Magnesium Hydroxide (Milk Of Magnesia Susp) 30 ml Q6H PRN PO 07/09/16 19:30 08/08/16 19:29 07/12/16 08:21 30 ML Calcium/Vitamin D (Caltrate Plus Tab) 1 tab DAILY PO 07/10/16 09:00 08/09/16 08:59 07/13/16 07:53 1 TAB Cholecalciferol (Vitamin D Tab) 1,000 inter.unit DAILY PO 07/10/16 09:00 08/09/16 08:59 07/13/16 07:52 1,000 INTER.UNIT Docusate Sodium (coLACE CAP) 100 mg BID PO 07/09/16 21:00 08/08/16 20:59 07/13/16 07:52 100 MG Enoxaparin Sodium (Lovenox Inj) 80 mg Q24H SQ 07/10/16 09:00 08/09/16 08:59 07/13/16 07:53 80 MG Levetiracetam (Keppra Tab) 500 mg BID PO 07/09/16 21:00 08/08/16 20:59 07/13/16 07:53 500 MG Levothyroxine Sodium (Synthroid Tab) 100 mcg DAILYBB PO 07/10/16 06:30 08/09/16 06:59 07/13/16 07:52 100 MCG Oxycodone HCl (Roxicodone Immediate Rel Tab) 5 mg Q4H PRN PO 07/09/16 19:30 07/23/16 19:29 07/12/16 20:03 5 MG Simvastatin 10 mg 10 mg QPM PO 07/09/16 21:00 08/08/16 20:59 07/12/16 20:03 10 MG Vancomycin HCl 750 mg/Sodium Chloride 265 ml @ 125 mls/hr Q24H IV 07/10/16 22:00 07/12/16 15:43 DC 07/11/16 21:41 125 MLS/HR Vancomycin HCl 1100 mg/Sodium Chloride 272 ml @ 125 mls/hr TODAY@2245 ONCE IV 07/09/16 22:45 07/10/16 00:55 DC 07/10/16 00:15 125 MLS/HR Ceftriaxone Sodium/Dextrose (Rocephin Inj/ Dextrose Add-Nickerson 50ML) 50 ml @ 100 mls/hr Q24H IV 07/10/16 18:00 07/12/16 15:43 DC 07/11/16 17:37 100 MLS/HR Haloperidol (Haldol Tab) 1 mg NOW ONCE PO 07/10/16 09:15 07/10/16 09:16 DC 07/10/16 09:39 1 MG Ciprofloxacin (Cipro Tab) 500 mg Q12@0600,1800 PO 07/12/16 18:00 07/22/16 17:59 07/13/16 07:53 500 MG Subjective She remains confused. Oriented 1. No new complaints Review of Systems: Not able to really obtain and accurate review of systems. She does state that the right arm and shoulder still bother her Vital Signs Vital Signs Past 12 Hours Date Time Temp Pulse Resp B/P Pulse Ox O2 Delivery O2 Flow Rate FiO2 07/13/16 09:53 36.7 83 20 98 Room Air 07/13/16 07:27 36.7 83 20 148/77 98 07/13/16 04:00 36.7 84 18 137/80 97 Room Air 07/13/16 00:00 Room Air 07/12/16 23:41 36.8 83 18 127/70 96 Room Air Physical Exam Constitutional: vitals are stable. Eyes: Eyes are HARSHIL EOMI without conjuctival erythema or icterus. ENT: External examination was negative for masses. Neck: Negative for masses or palpable thyromegaly Respiratory: Lung sounds were generally clear bilaterally Cardiovascular: Heart was RRR without significant murmur, gallops aoe rubs Gastrointestinal: No palpable hepatic or splenomegaly. The abdomen was soft with normal bowel sounds. Lymphatic system: there was no palpable peripheral lymphadenopathy Musculoskeletal System: The musculoskeletal system seemed concordant with age. Skin: The skin was negative for jaundice. Neurologic exam: The exam was negative for any focal findings. Deep tendon reflexes were equal and symmetrical. Psychiatric exam: Was essentially negative with normal mood and effect. Breast exam: Not done We will follow you had: Right arm is in a sling as before Laboratory Last 24 Hours Test 07/12/16 22:10 07/13/16 06:15 Vancomycin Level Trough 6.5 mcg/ml Creatinine 0.58 mg/dl Est Creatinine Clear Calc Drug Dose 52.2 ml/min Estimated GFR () 100.2 Estimated GFR (Non- 86.4 Assessment & Plan Diffusion remains clinically she is a same. We'll arrange for follow-up in our clinic. Again I suspect that a lot of her confusion now is complicated by underlying dementia along with the defects encountered with treatment of her GBM. Radiologically it appears that the GBM really has not progressed.
[2016-10-05] MEDS ORDERED: VNTHFA/IN INH (12:20)
[2016-10-05] MEDS ORDERED: ENOX80IN SQ (12:20)
[2016-10-05] MEDS ORDERED: ZTHM250 PO (12:20)
[2016-10-05] MEDS ORDERED: GFNSR600 PO (12:20)
[2016-10-05] MEDS ORDERED: CEFD1CAP14 PO (12:20)
[2016-10-05] MEDS ORDERED: NUTR-977 PO (12:20)
[2016-11-18] MEDS ORDERED: VTMB12 PO (09:52)
[2016-11-18] MEDS ORDERED: SRQ25 PO (09:52)
== END 2016-07-13 10:38 | disposition home health service (06) | DRG 689 ==
LOC: ENRESERVTM → ENRESERVDT → CANRESERV → C.EDB 13:53 → C.MED 19:48 → EDBEDREQSVC 20:07 → CMPBEDREQ 21:13
PROVIDERS: ADMIT Hospitalist; ATTEND Internal Medicine
DX: N39.0 Urinary tract infection, site not specified (principal); G92 Toxic encephalopathy; C71.9 Malignant neoplasm of brain, unspecified; B95.7 Other staphylococcus as the cause of diseases classified elsewhere; S42.291D Other displaced fracture of upper end of right humerus, subsequent encounter for fracture with routine healing; W19.XXXD Unspecified fall, subsequent encounter; D64.9 Anemia, unspecified; E03.9 Hypothyroidism, unspecified; Z86.711 Personal history of pulmonary embolism; Z99.3 Dependence on wheelchair; Z79.01 Long term (current) use of anticoagulants; Z79.891 Long term (current) use of opiate analgesic; Z79.899 Other long term (current) drug therapy; Z92.3 Personal history of irradiation; Z92.21 Personal history of antineoplastic chemotherapy

== ENCOUNTER 2016-10-01 13:13 | Inpatient (IN) | payer OTHER, BC ==
[~2016-10-01] VITALS: Ht 162.6 cm; Wt 41.4 kg
[~2016-10-01 13:13] MED LIST changes: +CPR500 PO; +DOCU100C31 PO; +LEVO100T7 PO; -LEVO88TA3 PO; +NF656 EXT; -RISE150T PO; +SENN-65 PO
[2016-10-01 15:06] LABS: HEMATOCRIT 39.8 % (37-47); MEAN CELL VOLUME 92.3 fL (80-100); MEAN CORPUSCULAR HEMOGLOBIN 33.4 pg (25-34); MEAN CORPUSCULAR HGB CONC 36.2 g/dl (32-36); MEAN PLATELET VOLUME 9.4 fL (7.4-10.4); PLATELET COUNT 103 K/uL (130-400); RED BLOOD COUNT 4.31 M/uL (4.2-5.4); WHITE BLOOD COUNT 4.45 K/uL (4.8-10.8)
[2016-10-01 15:23] LABS: ALT/SGPT 33 U/L (12-78); AST/SGOT 24 U/L (15-37); BLOOD UREA NITROGEN 15 mg/dl (7-18); BUN/CREATININE RATIO 19.7 (10-20); CALCIUM 9.2 mg/dl (8.5-10.1); CARBON DIOXIDE 28 mmol/L (21-32); CHLORIDE 106 mmol/L (98-107); CREATININE 0.77 mg/dl (0.60-1.20); GLUCOSE 98 mg/dl (70-99); POTASSIUM 4.2 mmol/L (3.5-5.1); SODIUM 141 mmol/L (136-145)
[2016-10-01 15:26] LABS: ALKALINE PHOSPHATASE 78 U/L (45-117)
[2016-10-01 15:27] LABS: INR 0.9 (0.9-1.1); PARTIAL THROMBOPLASTIN RATIO 1.1; PROTHROMBIN TIME (PATIENT) 10.1 SECONDS (9.0-12.0)
[2016-10-01 15:30] LABS: BASO % 1.8 %; BASO ABS # 0.08 K/uL (0-0.2); COMPLETE YES; EOS % 0.7 %; IG% 0.7 %; LYMPH % 22.9 %; LYMPH ABS # 1.02 K/uL (1.2-3.4); NEUT % 62.9 %
--- NOTE | 2016-10-01 15:32 | DIAGNOSTIC IMAGING REPORT ---
CT SCAN OF THE BRAIN WITHOUT IV CONTRAST CLINICAL HISTORY: Headache. COMPARISON STUDY: CT of the brain dated 07/09/2016. TECHNIQUE: Unenhanced axial CT scan of the brain is performed from the vertex to the skull base. CT DOSE: 537.48 mGy.cm FINDINGS: Brain parenchyma: Right temporal encephalomalacia is unchanged and consistent with previous tumor resection. Dural thickening deep to the craniotomy site is likely on a postoperative basis. There are age-related involutional changes noting moderate subcortical and periventricular microangiopathic change. There is no hemorrhage, mass effect, or evidence of acute territorial ischemia by CT criteria. Nguyen-white matter is preserved. No extra-axial fluid collection is seen. Ventricles, sulci, cisterns: Prominent secondary to involutional change. Intracranial vasculature: There is atherosclerotic calcification of the cavernous carotid and vertebral arteries. Calvarium: There are changes from right temporal craniotomy. No destructive calvarial lesion is seen. Sinuses and mastoids: There is moderate mucosal thickening within the ethmoid sinuses. Moderate mucosal thickening is seen within the sphenoid sinuses and the left frontal sinus. Air-fluid levels are noted within the maxillary antra and sphenoid sinuses. The mastoid air cells are well pneumatized. Orbits: The bony orbits are grossly intact. IMPRESSION: 1. There is no hemorrhage, mass effect, or evidence of acute territorial ischemia by CT criteria. 2. Chronic and postoperative changes as above. There has been no significant change from 07/09/2016. 3. Paranasal sinus disease as above. Correlate clinically for evidence of acute sinusitis. Electronically signed by: Govind Schaefer M.D. 10/01/2016 3:30 PM Dictated Date/Time: 10/01/2016 3:27 PM
--- NOTE | 2016-10-01 15:52 | DIAGNOSTIC IMAGING REPORT ---
TWO VIEW CHEST CLINICAL HISTORY: Cough. FINDINGS: PA and lateral chest radiographs are compared to study dated 07/09/2016 and correlated with chest CT dated 11/08/2015. The PA view is degraded by patient rotation. The cardiomediastinal silhouette is unremarkable. There is atherosclerotic calcification of the thoracic aorta. Findings suggest obstructive physiology. There is chronic interstitial thickening. Patchy airspace opacities are seen at the left lung base. No large pleural effusion or pneumothorax is identified. The skeletal structures are osteopenic. The bony thorax appears intact. Postoperative change is identified within one of the humeri on the lateral projection. IMPRESSION: 1. Findings suggest emphysema. 2. Patchy airspace opacities are identified at the left lung base. Correlate clinically for evidence of aspiration pneumonitis/pneumonia. Radiographic follow-up to resolution is recommended. Electronically signed by: Govind Schaefer M.D. 10/01/2016 3:49 PM Dictated Date/Time: 10/01/2016 3:47 PM
[2016-10-01] MEDS ORDERED: LEVAQUIN 750MG / 150ML D5W IV STA (15:53)
[2016-10-01] MEDS ORDERED: SODIUM CHLORIDE 0.9% 500ML 500 ML IV STA (15:53)
[2016-10-01] MEDS ORDERED: DOCUSATE SODIUM/SENNA 50/8.6MG TAB PO PRN (16:45)
[2016-10-01] MEDS ORDERED: ONDANSETRON INJ 2 MG/ML 2 ML VIAL IV PRN ×2 (16:45)
[2016-10-01] MEDS ORDERED: ZOLPIDEM TARTRATE 5 MG TAB PO PRN (16:45)
[2016-10-01] MEDS ORDERED: LEVALBUTEROL 1.25MG/0.5ML NEB INH PRN (17:45)
[2016-10-01] MEDS ORDERED: IPRATROPIUM BROMIDE NEB SOLN 0.02% 2.5 ML VIAL INH PRN (17:45)
--- NOTE | 2016-10-01 18:05 | EMERGENCY ROOM VISIT NOTE ---
History Report prepared by Waldemar: Juliet Edwards Under the Supervision of: Dr. Robinson Baeza M.D. First contact with patient: 14:17 Chief Complaint: ILLNESS Stated Complaint: TROUBLE WALKING History of Present Illness The patient is a 80 year old female who presents to the Emergency Room with complaints of multiple near syncopal episodes that occurred this morning. The patient states that she has had cold like symptoms, including a nonproductive cough and chest congestion for the past 3 weeks. She has not seen a doctor since her symptoms started. She has had some intermittent shortness of breath. Currently, she is not short of breath. This morning, the patient tried to get out of bed because her phone was ringing, but felt very lightheaded as if she was going to pass out. She tripped but was able to catch herself before falling. She did not lose consciousness. This happened multiple times over the course of several hours when she was trying to talk. Currently, while resting, she does not feel lightheaded. She states that she has had occasional headaches over the past several weeks, but does not have a headache currently. She also complains of diarrhea over the past month. She did not have an episode of diarrhea yet today. Denies fevers, chest pain, vomiting, black or bloody stools , numbness, weakness, or other complaints. The patient has a history of a stage 4 glioblastoma multiforme. Onset: this morning Position: other (global) Quality: other (near syncope) Timing: other (episodic) Modifying Factors (Worsening): exertion Associated Symptoms: + cough, + diarrhea, No chest pain, No fevers, No numbness, No vomiting, No weakness Note: Other symptoms: chest congestion Review of Systems See HPI for pertinent positives & negatives. A total of 10 systems reviewed and were otherwise negative. Past Medical & Surgical Medical Problems: (1) Anemia (2) Arm fracture, right (3) Elevated cholesterol (4) History of pulmonary embolus (PE) (5) Hypothyroidism (6) Left lower lobe pneumonia (7) Osteoarthritis (8) Osteoporosis (9) Swelling of left hand Surgical Problems: (1) S/P wrist surgery Family History Patient reports no known family medical history. Social History Smoking Status: Unknown if Ever Smoked Alcohol Use: none Marital Status: Housing Status: lives with significant other Occupation Status: retired Current/Historical Medications Scheduled Calcium Carbonate-Vitamin D W/ (Caltrate 600 Plus), 1 TAB PO DAILY Cholecalciferol (Vitamin D 1000 Unit), 1,000 INTER.UNIT PO DAILY Ciprofloxacin (Ciprofloxacin HCl), 500 MG PO Q12@0600,1800 Docusate Sodium (Docusate Sodium), 1 CAP PO BID Enoxaparin (Lovenox), 80 MG SQ Q24H Levetiracetam (Keppra), 500 MG PO BID Levothyroxine Sodium (Levothyroxine Sodium), 1 TAB PO DAILY Lidocaine (Lidoderm Patch 5%), 2 PATCH EXT DAILY@0700 Simvastatin (Zocor), 10 MG PO QPM Scheduled PRN Lorazepam (Ativan), 0.5 MG PO DAILY PRN for Anxiety Senna/Docusate Sod (Senokot S), 1 TAB PO DAILY PRN for Constipation Allergies Coded Allergies: Lactose (Verified Allergy, Unknown, ., 10/01/16) Penicillins (Verified Allergy, Unknown, ., 10/01/16) Phenylephrine (Verified Adverse Reaction, Mild, NAUSEA, 10/01/16) Sulfamethoxazole w/Trimethoprim (Verified Adverse Reaction, Unknown, nausea, 07/09/16) [employer] Physical Exam Vital Signs Date Time Temp Pulse Resp B/P Pulse Ox O2 Delivery O2 Flow Rate FiO2 10/01/16 16:49 78 20 124/106 97 Room Air 10/01/16 15:07 79 10/01/16 14:57 78 178/79 91 155/81 94 149/103 10/01/16 13:21 95 20 156/86 94 Room Air Physical Exam Constitutional: Vital signs reviewed. Eyes: Pupils are equal round reactive to light. Conjunctiva are noninjected. ENT: Pharynx is clear without erythema or exudate. Mucous membranes are moist. Neck supple without meningeal signs. Respiratory: Clear to auscultation bilaterally. Breath sounds are equal bilaterally. Cardiovascular: Regular rate and rhythm. No rubs or gallops. GI: Soft, nondistended and nontender. Bowel sounds are present. Musculoskeletal: No peripheral edema. No lower extremity tenderness. Integumentary: No cyanosis. Neurological: The patient is awake and alert. No focal deficits. Psychiatric: Normal affect. Medical Decision & Procedures ER Provider Diagnostic Interpretation: Radiology results as stated below per my review and the radiologist's interpretation: CT SCAN OF THE BRAIN WITHOUT IV CONTRAST CLINICAL HISTORY: Headache. COMPARISON STUDY: CT of the brain dated 07/09/2016. TECHNIQUE: Unenhanced axial CT scan of the brain is performed from the vertex to the skull base. CT DOSE: 537.48 mGy.cm FINDINGS: Brain parenchyma: Right temporal encephalomalacia is unchanged and consistent with previous tumor resection. Dural thickening deep to the craniotomy site is likely on a postoperative basis. There are age-related involutional changes noting moderate subcortical and periventricular microangiopathic change. There is no hemorrhage, mass effect, or evidence of acute territorial ischemia by CT criteria. Nguyen-white matter is preserved. No extra-axial fluid collection is seen. Ventricles, sulci, cisterns: Prominent secondary to involutional change. Intracranial vasculature: There is atherosclerotic calcification of the cavernous carotid and vertebral arteries. Calvarium: There are changes from right temporal craniotomy. No destructive calvarial lesion is seen. Sinuses and mastoids: There is moderate mucosal thickening within the ethmoid sinuses. Moderate mucosal thickening is seen within the sphenoid sinuses and the left frontal sinus. Air-fluid levels are noted within the maxillary antra and sphenoid sinuses. The mastoid air cells are well pneumatized. Orbits: The bony orbits are grossly intact. IMPRESSION: 1. There is no hemorrhage, mass effect, or evidence of acute territorial ischemia by CT criteria. 2. Chronic and postoperative changes as above. There has been no significant change from 07/09/2016. 3. Paranasal sinus disease as above. Correlate clinically for evidence of acute sinusitis. Electronically signed by: Govind Schaefer M.D. 10/01/2016 3:30 PM Dictated Date/Time: 10/01/2016 3:27 PM TWO VIEW CHEST CLINICAL HISTORY: Cough. FINDINGS: PA and lateral chest radiographs are compared to study dated 07/09/2016 and correlated with chest CT dated 11/08/2015. The PA view is degraded by patient rotation. The cardiomediastinal silhouette is unremarkable. There is atherosclerotic calcification of the thoracic aorta. Findings suggest obstructive physiology. There is chronic interstitial thickening. Patchy airspace opacities are seen at the left lung base. No large pleural effusion or pneumothorax is identified. The skeletal structures are osteopenic. The bony thorax appears intact. Postoperative change is identified within one of the humeri on the lateral projection. IMPRESSION: 1. Findings suggest emphysema. 2. Patchy airspace opacities are identified at the left lung base. Correlate clinically for evidence of aspiration pneumonitis/pneumonia. Radiographic follow-up to resolution is recommended. Electronically signed by: Govind Schaefer M.D. 10/01/2016 3:49 PM Dictated Date/Time: 10/01/2016 3:47 PM Laboratory Results 10/01/16 14:50 Red Blood Count 4.31, Mean Corpuscular Volume 92.3, Mean Corpuscular Hemoglobin 33.4, Mean Corpuscular Hemoglobin Concent 36.2, Mean Platelet Volume 9.4, Neutrophils (%) (Auto) 62.9, Lymphocytes (%) (Auto) 22.9, Monocytes (%) (Auto) 11.0, Eosinophils (%) (Auto) 0.7, Basophils (%) (Auto) 1.8, Neutrophils # (Auto ) 2.80, Lymphocytes # (Auto) 1.02, Monocytes # (Auto) 0.49, Eosinophils # (Auto ) 0.03, Basophils # (Auto) 0.08 10/01/16 14:50 Test 10/01/16 14:50 10/01/16 14:55 10/01/16 15:00 White Blood Count 4.45 K/uL (4.8-10.8) Red Blood Count 4.31 M/uL (4.2-5.4) Hemoglobin 14.4 g/dL (12.0-16.0) Hematocrit 39.8 % (37-47) Mean Corpuscular Volume 92.3 fL (80-100) Mean Corpuscular Hemoglobin 33.4 pg (25-34) Mean Corpuscular Hemoglobin Concent 36.2 g/dl (32-36) Platelet Count 103 K/uL (130-400) Mean Platelet Volume 9.4 fL (7.4-10.4) Neutrophils (%) (Auto) 62.9 % Lymphocytes (%) (Auto) 22.9 % Monocytes (%) (Auto) 11.0 % Eosinophils (%) (Auto) 0.7 % Basophils (%) (Auto) 1.8 % Neutrophils # (Auto) 2.80 K/uL (1.4-6.5) Lymphocytes # (Auto) 1.02 K/uL (1.2-3.4) Monocytes # (Auto) 0.49 K/uL (0.11-0.59) Eosinophils # (Auto) 0.03 K/uL (0-0.5) Basophils # (Auto) 0.08 K/uL (0-0.2) RDW Standard Deviation 47.2 fL (36.4-46.3) RDW Coefficient of Variation 13.9 % (11.5-14.5) Immature Granulocyte % (Auto) 0.7 % Immature Granulocyte # (Auto) 0.03 K/uL (0.00-0.02) Prothrombin Time 10.1 SECONDS (9.0-12.0) Prothromb Time International Ratio 0.9 (0.9-1.1) Activated Partial Thromboplast Time 27.8 SECONDS (21.0-31.0) Partial Thromboplastin Ratio 1.1 Anion Gap 7.0 mmol/L (3-11) Estimated GFR () 83.9 Estimated GFR (Non- 72.4 BUN/Creatinine Ratio 19.7 (10-20) Calcium Level 9.2 mg/dl (8.5-10.1) Total Bilirubin 0.6 mg/dl (0.2-1) Direct Bilirubin 0.2 mg/dl (0-0.2) Aspartate Amino Transf (AST/SGOT) 24 U/L (15-37) Alanine Aminotransferase (ALT/SGPT) 33 U/L (12-78) Alkaline Phosphatase 78 U/L (45-117) Total Protein 7.4 gm/dl (6.4-8.2) Albumin 3.8 gm/dl (3.4-5.0) Bedside Troponin I 0.000 ng/ml (0-0.045) Influenza Type A Antigen Neg for Influ A (NEG) Influenza Type B Antigen Neg for Influ B (NEG) Laboratory results as reviewed by me. Medications Administered Medications (Trade) Dose Ordered Sig/Wilver Route Start Time Stop Time Status Last Admin Dose Admin Sodium Chloride (Nss 500ml) 500 ml @ 999 mls/hr Q31M STAT IV 10/01/16 15:53 10/01/16 16:23 DC 10/01/16 16:00 999 MLS/HR Levofloxacin (Levaquin / D5W) 750 mg NOW STAT IV 10/01/16 15:53 10/01/16 15:54 DC 10/01/16 16:00 750 MG ECG Indication: other (near syncope) Rate (beats per minute): 79 Rhythm: normal sinus Findings: no acute ischemic change, no ectopy ED Course 1419: The patient was evaluated in room A3. A complete history and physical exam was performed. 1553: Ordered Levofloxacin 750 mg IV, NSS 500 ml @ 999 mls/hr IV. 1556: I reassessed the patient and discussed results with her. She agreed with the plan. 1617: I discussed the case with Dr. Melvi HARTMAN Hospitalist. The patient will be evaluated for further management. Medical Decision This is an 80-year-old female who presents with near-syncope and cold symptoms. Differential diagnosis includes pneumonia, bronchitis, sepsis, anemia, metabolic derangement, orthostatic hypotension, dehydration. I did perform a limited focused review of portions of the patient's old chart on the electronic medical record. She was admitted in June for a UTI. She had a grade 4 glioblastoma multiforme. I did evaluate the patient as noted above. She is presenting with several near syncopal episodes. She has had cold symptoms and diarrhea recently. IV access was established. The patient was placed on a continuous home health care respiratory therapist. Orthostatic vital signs were obtained. Her blood pressure did drop on standing but she never became hypotensive. She was given normal saline IV. I did order and personally review the patient's 12-lead EKG and chest x-ray as described above. She does have a pneumonia on chest x-ray. Blood cultures were ordered. I did treat her with Levaquin IV. I did order and review the patient's blood work as noted in the electronic medical record. She does have leukopenia and thrombocytopenia. I did order a CT of the head. I did review the images myself as well as the radiology report as described above. I did discuss the test results with the patient and her family. I did recommend hospitalization for further care and evaluation. I did discuss the case with the hospital stay and director of casework. Consults Time Called: [id number] Consulting Physician: Dr. Melvi HARTMAN Hospitalist Returned Call: [phone] I discussed the case with him. The patient will be evaluated for further management. Impression Primary Impression: Left lower lobe pneumonia Additional Impressions: Near syncope Thrombocytopenia Leukopenia Diarrhea Scribe Attestation The scribe's documentation has been prepared under my direct and personally reviewed by me in its entirety. I confirm that the note above accurately reflects all work, treatment, procedures, and medical decision making performed by me. Departure Information Dispostion Being Evaluated By Hospitalist Jack Bennett M.D. (PCP) Patient Instructions My [facility] Problem Qualifiers Primary Impression: Left lower lobe pneumonia Pneumonia type: due to unspecified organism Qualified Codes: J18.1 - Lobar pneumonia, unspecified organism Additional Impressions: Leukopenia Leukopenia type: unspecified Qualified Codes: D72.819 - Decreased white blood cell count, unspecified Diarrhea Diarrhea type: unspecified type Qualified Codes: R19.7 - Diarrhea, unspecified
[2016-10-01 18:35] LABS: URINE APPEARANCE CLEAR (CLEAR); URINE BILIRUBIN NEG (NEG); URINE COLOR YELLOW; URINE NITRITE NEG (NEG); URINE PH 7.5 (4.5-7.5); URINE SPECIFIC GRAVITY 1.006 (1.000-1.030); UROBILINOGEN NEG (NEG)
[2016-10-01 18:36] LABS: MANUAL MICROSCOPIC REQUIRED? NO; REVIEW REQ? NO
[2016-10-01 19:51] VITALS: BP 134/74; PULSE 97; TEMP 36.1; O2SAT 93
[2016-10-01 20:07] VITALS: BP 134/74; PULSE 97; TEMP 36.1; O2SAT 93; Ht 162.6 cm; Wt 41.4 kg
[2016-10-01] MEDS: IPRATROPIUM BROMIDE NEB SOLN 0.02% 2.5 ML VIAL INH SCH (20:10)
[2016-10-01] MEDS: LEVALBUTEROL 1.25MG/0.5ML NEB INH SCH (20:10)
[2016-10-01 20:11] VITALS: PULSE 78; O2SAT 93
[2016-10-01] MEDS ORDERED: PATIENT'S HEIGHT AND/OR WEIGHT NEEDED SCH (20:15)
--- NOTE | 2016-10-01 20:40 | History and Physical ---
History & Physical Date & Time of Service: Oct 01, 2016 at 20:19 Chief Complaint: Left Lower Lobe Pneumonia Primary Care Physician: Jack Gonzales M.D. History of Present Illness Source: patient, family The patient is an 80-year-old female who presents to the emergency department with several near syncopal episodes that occurred this morning prior to arrival. For the past 3 weeks she's had symptoms of a cough is been intermittently productive, chest congestion and head and neck congestion. She' s had occasional headaches for the past several weeks along with intermittent diarrhea as well. She has history of stage IV glioblastoma multiform and is status post right temporal craniotomy. Past Medical/Surgical History Medical Problems: (1) Anemia Status: Chronic (2) Arm fracture, right Status: Resolved (3) Elevated cholesterol Status: Chronic (4) History of pulmonary embolus (PE) Status: Chronic (5) Hypothyroidism Status: Chronic (6) Osteoarthritis Status: Chronic (7) Osteoporosis Status: Chronic (8) Swelling of left hand Status: Resolved Surgical Problems: (1) S/P wrist surgery Status: Resolved Family History Patient reports no known family medical history. Social History Smoking Status: Unknown if Ever Smoked Smokeless Tobacco Use: No Alcohol Use: none Drug Use: none Marital Status: Housing status: lives with family, lives with significant other, other Occupational Status: retired Immunizations History of Influenza Vaccine: No History of Tetanus Vaccine?: Yes History of Pneumococcal: No History of Hepatitis B Vaccine: No Multi-Drug Resistant Organisms History of MDRO: No Allergies Coded Allergies: Lactose (Verified Allergy, Unknown, ., 10/01/16) Penicillins (Verified Allergy, Unknown, ., 10/01/16) Phenylephrine (Verified Adverse Reaction, Mild, NAUSEA, 10/01/16) Sulfamethoxazole w/Trimethoprim (Verified Adverse Reaction, Unknown, nausea, 07/09/16) allscripts Home Medications Scheduled Calcium Carbonate-Vitamin D W/ (Caltrate 600 Plus), 1 TAB PO DAILY Cholecalciferol (Vitamin D 1000 Unit), 1,000 INTER.UNIT PO DAILY Ciprofloxacin (Ciprofloxacin HCl), 500 MG PO Q12@0600,1800 Docusate Sodium (Docusate Sodium), 1 CAP PO BID Enoxaparin (Lovenox), 80 MG SQ Q24H Levetiracetam (Keppra), 500 MG PO BID Levothyroxine Sodium (Levothyroxine Sodium), 1 TAB PO DAILY Lidocaine (Lidoderm Patch 5%), 2 PATCH EXT DAILY@0700 Simvastatin (Zocor), 10 MG PO QPM Scheduled PRN Lorazepam (Ativan), 0.5 MG PO DAILY PRN for Anxiety Senna/Docusate Sod (Senokot S), 1 TAB PO DAILY PRN for Constipation Review of Systems The patient denies lower extremity swelling, vision change, hearing change, sore throat, fevers, chills, sweats, weight change, fatigue, nausea, vomiting, abdominal pain, pelvic pain, blood in urine or stool, dysuria, urinary frequency or urgency, memory loss, rash, abnormal bruising or bleeding, imbalance, focal weakness, numbness or tingling in arms or legs, arthralgias or myalgias, back or neck pain, night sweats, or allergy symptoms. The review of systems is otherwise negative other than for that already noted above, and at least 10 systems have been reviewed. Physical Exam Vital Signs Date Time Temp Pulse Resp B/P Pulse Ox O2 Delivery O2 Flow Rate FiO2 10/01/16 20:11 78 16 93 Room Air 10/01/16 19:51 36.1 97 18 134/74 93 Room Air 10/01/16 18:56 90 20 10/01/16 16:49 78 20 124/106 97 Room Air 10/01/16 15:07 79 10/01/16 14:57 78 178/79 91 155/81 94 149/103 10/01/16 13:21 95 20 156/86 94 Room Air The patient is awake, well-developed and adequately nourished, alert and oriented 3, normocephalic and atraumatic, lying in bed and in no acute distress , sounding as if she has significant head and neck congestion. HEENT--PERRL, EOMI, mucous membranes and oropharynx dry. Neck--supple, no JVD or bruits, thyroid normal, trachea midline, no adenopathy. Heart--normal S1 and S2, no extra beats, no murmurs, rubs or gallops. Lungs--crackles at the bases bilaterally, with left significantly greater than right. No respiratory distress, no accessory muscle use. Abdomen--normal bowel sounds and soft, nontender and nondistended, no hernias or masses, no organomegaly. Extremities--no cyanosis, clubbing or edema. There are good distal pulses b/l. Dermatologic--normal skin turgor, normal color, warm and dry, no abnormal lymph nodes, no rash. Neurologic--cranial nerves II through XII grossly intact, motor and sensory examination normal. Rheumatologic--normal range of motion, nontender, muscles and joints. Psychiatric--normal affect. Diagnostics Laboratory Results Results Past 24 Hours Test 10/01/16 14:50 10/01/16 14:55 10/01/16 15:00 10/01/16 17:45 Range/Units White Blood Count 4.45 4.8-10.8 K/uL Red Blood Count 4.31 4.2-5.4 M/uL Hemoglobin 14.4 12.0-16.0 g/dL Hematocrit 39.8 37-47 % Mean Corpuscular Volume 92.3 80-100 fL Mean Corpuscular Hemoglobin 33.4 25-34 pg Mean Corpuscular Hemoglobin Concent 36.2 32-36 g/dl Platelet Count 103 130-400 K/uL Mean Platelet Volume 9.4 7.4-10.4 fL Neutrophils (%) (Auto) 62.9 % Lymphocytes (%) (Auto) 22.9 % Monocytes (%) (Auto) 11.0 % Eosinophils (%) (Auto) 0.7 % Basophils (%) (Auto) 1.8 % Neutrophils # (Auto) 2.80 1.4-6.5 K/uL Lymphocytes # (Auto) 1.02 1.2-3.4 K/uL Monocytes # (Auto) 0.49 0.11-0.59 K/uL Eosinophils # (Auto) 0.03 0-0.5 K/uL Basophils # (Auto) 0.08 0-0.2 K/uL RDW Standard Deviation 47.2 36.4-46.3 fL RDW Coefficient of Variation 13.9 11.5-14.5 % Immature Granulocyte % (Auto) 0.7 % Immature Granulocyte # (Auto) 0.03 0.00-0.02 K/uL Prothrombin Time 10.1 9.0-12.0 SECONDS Prothromb Time International Ratio 0.9 0.9-1.1 Activated Partial Thromboplast Time 27.8 21.0-31.0 SECONDS Partial Thromboplastin Ratio 1.1 Sodium Level 141 136-145 mmol/L Potassium Level 4.2 3.5-5.1 mmol/L Chloride Level 106 98-107 mmol/L Carbon Dioxide Level 28 21-32 mmol/L Anion Gap 7.0 3-11 mmol/L Blood Urea Nitrogen 15 7-18 mg/dl Creatinine 0.77 0.60-1.20 mg/dl Estimated GFR () 83.9 Estimated GFR (Non- 72.4 BUN/Creatinine Ratio 19.7 10-20 Random Glucose 98 70-99 mg/dl Calcium Level 9.2 8.5-10.1 mg/dl Total Bilirubin 0.6 0.2-1 mg/dl Direct Bilirubin 0.2 0-0.2 mg/dl Aspartate Amino Transf (AST/SGOT) 24 15-37 U/L Alanine Aminotransferase (ALT/SGPT) 33 12-78 U/L Alkaline Phosphatase 78 45-117 U/L Total Protein 7.4 6.4-8.2 gm/dl Albumin 3.8 3.4-5.0 gm/dl Bedside Troponin I 0.000 0-0.045 ng/ml Influenza Type A Antigen Neg for Influ A NEG Influenza Type B Antigen Neg for Influ B NEG Urine Color YELLOW Urine Appearance CLEAR CLEAR Urine pH 7.5 4.5-7.5 Urine Specific [place] 1.006 1.000-1.030 Urine Protein NEG NEG Urine Glucose (UA) NEG NEG Urine Ketones NEG NEG Urine Occult Blood NEG NEG Urine Nitrite NEG NEG Urine Bilirubin NEG NEG Urine Urobilinogen NEG NEG Urine Leukocyte Esterase NEG NEG Microbiology Results 10/01/16 Blood Culture, Received Pending 10/01/16 Blood Culture, Received Pending 10/01/16 Shiga Toxin Test, Received Pending 10/01/16 Stool Culture, Received Pending 10/01/16 C.difficile Toxin B Gene (PCR) - Final, Complete No C. difficile toxin B gene detected Diagnostic Radiology Patient Name: NORMAN CHANG Unit Number: [id number] Dictated: 10/01/16 1527 Transcribed: 10/01/16 1527 EV Printed Date/Time: [~ rep prt dt]/[~ rep prt tm] [~ rep ct labl] - [~ rep ct ivnm] [facility] [place] [address] Dictated: 10/01/16 1527 Transcribed: 10/01/16 1527 EV Printed Date/Time: [~ rep prt dt]/[~ rep prt tm] [~ rep ct labl] - [~ rep ct ivnm] CT SCAN OF THE BRAIN WITHOUT IV CONTRAST CLINICAL HISTORY: Headache. COMPARISON STUDY: CT of the brain dated 07/09/2016. TECHNIQUE: Unenhanced axial CT scan of the brain is performed from the vertex to the skull base. CT DOSE: 537.48 mGy.cm FINDINGS: Brain parenchyma: Right temporal encephalomalacia is unchanged and consistent with previous tumor resection. Dural thickening deep to the craniotomy site is likely on a postoperative basis. There are age-related involutional changes noting moderate subcortical and periventricular microangiopathic change. There is no hemorrhage, mass effect, or evidence of acute territorial ischemia by CT criteria. Nguyen-white matter is preserved. No extra-axial fluid collection is seen. Ventricles, sulci, cisterns: Prominent secondary to involutional change. Intracranial vasculature: There is atherosclerotic calcification of the cavernous carotid and vertebral arteries. Calvarium: There are changes from right temporal craniotomy. No destructive calvarial lesion is seen. Sinuses and mastoids: There is moderate mucosal thickening within the ethmoid sinuses. Moderate mucosal thickening is seen within the sphenoid sinuses and the left frontal sinus. Air-fluid levels are noted within the maxillary antra and sphenoid sinuses. The mastoid air cells are well pneumatized. Orbits: The bony orbits are grossly intact. IMPRESSION: 1. There is no hemorrhage, mass effect, or evidence of acute territorial ischemia by CT criteria. 2. Chronic and postoperative changes as above. There has been no significant change from 07/09/2016. 3. Paranasal sinus disease as above. Correlate clinically for evidence of acute sinusitis. Electronically signed by: Govind Schaefer M.D. 10/01/2016 3:30 PM Dictated Date/Time: 10/01/2016 3:27 PM The status of this report is Signed. Draft = Not yet reviewed or approved by Radiologist. Signed = Reviewed and approved by Radiologist. <AttendingPhy></AttendingPhy> <FamilyPhy>Jack Gonzales M.D.</FamilyPhy> < PrimaryPhy>Jack Gonzales M.D.</PrimaryPhy> <UnitNumber>[id number]</UnitNumber > <VisitNumber>[id number]</VisitNumber> <PatientName>ROBINSONNORMAN Greer</ PatientName> <DateOfBirth>1935</DateOfBirth> <Location>[facility]</Location> < ServiceDate>10/01/16</ServiceDate> <MNE>ESINDI</MNE> <OrderingPhy>Robinson Baeza MD</OrderingPhy> <OrderingPhyMNE>f rep ord dr moise</OrderingPhyMNE> < DictatingPhyMNE>f rep dict dr moise</DictatingPhyMNE> <CCListMNE>f rep ct mne</ CCListMNE> <AdmittingPhyMNE>f pt admit dr moise</AdmittingPhyMNE> <AttendingPhyMNE >f pt attend dr moise</AttendingPhyMNE> <ConsultingPhyMNE>f pt consult dr moise</ConsultingPhyMNE> <FamilyPhyMNE>f pt fam dr moise</FamilyPhyMNE> <OtherPhyMNE>f pt other dr moise</OtherPhyMNE> < PrimaryPhyMNE>f pt prim care dr moise</PrimaryPhyMNE> <ReferringPhyMNE>f pt referring dr moise</ReferringPhyMNE> EKG EKG shows normal sinus rhythm at 79 bpm, left axis deviation, nonspecific T- wave abnormalities improved in lateral leads since June 2016, Impression Assessment and Plan Multiple near syncopal episodes/left lower lobe pneumonia/pansinusitis--patient in general seems to be very fatigued and overall ill, and these symptoms are likely the main contribution to the cause of her near syncopal episodes. She' ll be placed on ceftriaxone 1 g IV daily, levofloxacin 500 mg IV every 24 hours , guaifenesin extended release 600 mg by mouth twice a day, Solu-Medrol 30 mg IV every 8 hours, and Xopenex with Atrovent nebulizer to use every 6 hours while awake and every [address] of the head is negative for acute neurologic event, but does demonstrate pansinusitis. Pulmonary embolism history--continue Lovenox 80 mg subcutaneous every 24 hours. Glioblastoma multiform/status post right temporal craniotomy/seizure disorder-- continue Keppra 500 mg by mouth twice a day. Hypercholesterolemia--continue simvastatin 10 mg by mouth every evening. Hypothyroidism continue to continue levothyroxine 100 g by mouth daily. Level of Care Telemetry Advanced Directives Existing Advance Directive: No Existing Living Will: No Existing Power of Electrical Engineering Drafting Officer: No Resuscitation Status FULL RESUSCITATION VTE Prophylaxis VTE Risk Assessment Done? Y/N: Yes Risk Level: Moderate Given or contraindicated: Enoxaparin (Lovenox)SQ
[2016-10-01] MEDS: CEFTRIAXONE SOD INJ 1 GM in DEXTROSE 5% ADD-VANTAGE 50ML 50 ML IV SCH (21:00)
[2016-10-01] MEDS ORDERED: LEVALBUTEROL/IPRATROPIUM NEB INH SCH (21:00)
[2016-10-01] MEDS: DOCUSATE SODIUM 100 MG CAP PO SCH (21:00)
[2016-10-01] MEDS: LEVETIRACETAM 500 MG TAB PO SCH (21:01)
[2016-10-01] MEDS: GUAIFENESIN 600 MG TABCR PO SCH (21:01)
[2016-10-01] MEDS: METHYLPREDNISOLONE IV 30 MG in SYRINGE 0 ML IV SCH (21:01)
[2016-10-01] MEDS: SIMVASTATIN 10 MG TAB PO SCH (21:02)
[2016-10-01] MEDS: LORAZEPAM 0.5 MG TAB PO PRN (21:02)
[2016-10-01] MEDS: ACETAMINOPHEN 325 MG TAB PO PRN (21:03)
[2016-10-01] MEDS ORDERED: LEVOFLOXACIN / D5W 500 MG in PREMIXED IN D5W 100 ML IV SCH (22:00)
[2016-10-01 23:19] VITALS: BP 133/80; PULSE 81; TEMP 36.9; O2SAT 96
[2016-10-02] VITALS (8 sets, daily range): BP systolic 116–154; BP diastolic 67–80; PULSE 53–90; TEMP 36.3–36.5; O2SAT 91–97
[2016-10-02] MEDS: LEVALBUTEROL 1.25MG/0.5ML NEB INH SCH ×3 (01:56→14:22)
[2016-10-02] MEDS: IPRATROPIUM BROMIDE NEB SOLN 0.02% 2.5 ML VIAL INH SCH ×3 (01:56→14:22)
[2016-10-02] MEDS: METHYLPREDNISOLONE IV 30 MG in SYRINGE 0 ML IV SCH ×3 (03:47→20:04)
[2016-10-02] MEDS: LEVOTHYROXINE 100 MCG TAB PO SCH (06:01)
[2016-10-02 06:33] LABS: HEMATOCRIT 37.3 % (37-47); MEAN CELL VOLUME 91.2 fL (80-100); MEAN CORPUSCULAR HEMOGLOBIN 33.3 pg (25-34); MEAN CORPUSCULAR HGB CONC 36.5 g/dl (32-36); MEAN PLATELET VOLUME 9.3 fL (7.4-10.4); PLATELET COUNT 100 K/uL (130-400); RED BLOOD COUNT 4.09 M/uL (4.2-5.4)
[2016-10-02 06:44] LABS: PARTIAL THROMBOPLASTIN RATIO 1.1
[2016-10-02 07:31] LABS: COMPLETE YES; LYMPH ABS # 0.25 K/uL (1.2-3.4); LYMPHOCYTE % 7.9 %; META ABS # 0.06 K/uL (0-0); METAMYELOCYTE % 1.8 %; NEUTROPHILS % 85.9 %; PLASMA CELL 3.5 %; PLT ESTIMATE DECREASED; TOXIC GRANULATION 1+
[2016-10-02 08:01] LABS: BUN/CREATININE RATIO 21.9 (10-20); CALCIUM 8.6 mg/dl (8.5-10.1); CREATININE 0.61 mg/dl (0.60-1.20); MAGNESIUM 2.3 mg/dl (1.8-2.4)
[2016-10-02] MEDS: DOCUSATE SODIUM 100 MG CAP PO SCH ×2 (08:07→20:32)
[2016-10-02] MEDS: GUAIFENESIN 600 MG TABCR PO SCH ×2 (08:11→20:32)
[2016-10-02] MEDS: CHOLECALCIFEROL 1000 INTER.UNIT TAB PO SCH (08:11)
[2016-10-02] MEDS: LIDODERM (LIDOCAINE) PATCH 5% TD SCH (08:11)
[2016-10-02] MEDS: CALCIUM 600MG + VIT D 400 IU TAB PO SCH (08:11)
[2016-10-02] MEDS: LEVETIRACETAM 500 MG TAB PO SCH ×2 (08:11→20:31)
[2016-10-02] MEDS: ENOXAPARIN 60 MG/0.6 ML SYR SQ SCH (08:12)
[2016-10-02] MEDS: SODIUM CHLORIDE 0.9% 1000ML 1,000 ML IV SCH (12:18)
[2016-10-02] MEDS: LORAZEPAM 0.5 MG TAB PO PRN (17:00)
[2016-10-02] MEDS ORDERED: HALOPERIDOL LACTATE 5 MG/ML 1 ML VIAL IM PRN (18:30)
[2016-10-02] MEDS ORDERED: AZITHROMYCIN IV 500 MG in DEXTROSE 5% 250ML 250 ML IV SCH (19:00)
[2016-10-02] MEDS: SIMVASTATIN 10 MG TAB PO SCH (20:31)
--- NOTE | 2016-10-02 21:44 | Family Medicine Progress Note ---
Progress Note Date of Service Oct 02, 2016. Subjective Pt evaluation today including: conversation w/ patient Patient is intermittently confused Reports that she has had several days of upper respiratory symptoms + cough and shortness of breath Unable to tell me about these near syncopal episode. She gets side tracked in her thought process and talks about her son. Eyes: No worsening of vision ENT: No hearing loss Respiratory: + cough, + dyspnea on exertion, + shortness of breath, + sputum , + wheezing Cardiovascular: No chest pain Abdomen: No nausea, No pain, No vomiting Female : No dysuria, No urinary frequency Objective Physical Exam General Appearance: no apparent distress, + thin Eyes: PERRL, EOMI ENT: hearing grossly normal, pharynx normal Neck: no adenopathy, thyroid normal Respiratory/Chest: no respiratory distress, no accessory muscle use, + decreased breath sounds, + rhonchi, + wheezing Cardiovascular: regular rate, rhythm, no edema Abdomen: normal bowel sounds, non tender, soft Extremities: non-tender, normal inspection, no pedal edema, no calf tenderness 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 Shortness of breath 2/2 left lower lobe pneumonia Ceftriaxone D/C levaquin due to QT prolongation Start Azithromycin Recheck EKG tomorrow low risk for aspiration pneumonia- patient has not had any dysphagia? Xoponex and Atrovent D/C steroids- no known history of smoking/ lung disease Influenza negative Near syncopal episodes? Orthostatic vitals positive, check qshift Monitor on Tele Troponin x 3 negative Possibly from dehydration - IV NSS H/O of PE: Lovenox 60- therapeutic Dementia: 1:1 Haldol 2 mg GBM / Seizures Continue Keppra Hypercholesterolemia continue simvastatin 10 mg Hypothyroidism levothyroxine 100 g Code: Full Reviewed: Pt Seen/Exam by Me History Resident Physician Supervision Note: I interviewed and examined the patient. Discussed with Dr. Duffy and agree with findings and plan as documented in the note. Any exceptions or clarifications are listed here: Patient quite talkative, not feeling short of breath, confused at times. When asked about coughing she says she is coughing and it is productive but she is not looking on it. Afebrile. Vitals reviewed No acute distress, thin, alert awake oriented 1 only Regular rate and rhythm, no murmurs gallops or rubs Crackles and rhonchi left lower and left middle lung castro as well as right lower lung field, otherwise clear to auscultation Abdomen positive bowel sounds soft nontender nondistended Extremities no edema, 2+ cells pedis pulses Neuro-has mild esotropia in the left eye, moving all extremities, substitutes words and is confused at times 80-year-old female with history of grade 4 glioblastoma multiforme currently undergoing chemotherapy, here with community-acquired pneumonia. -Continue Rocephin and changed to azithromycin secondary to prolonged QT- azithromycin could also prolonged QTc interval repeat ECG in the morning -Supportive care for dementia and watch for delirium and sundowning while in the hospital -Bronchodilators -All other medical conditions are stable at this time and will continue home medications Documented By: Xochilt Ramos
[2016-10-02] MEDS: CEFTRIAXONE SOD INJ 1 GM in DEXTROSE 5% ADD-VANTAGE 50ML 50 ML IV SCH (22:19)
[2016-10-03] VITALS (14 sets, daily range): BP systolic 91–123; BP diastolic 53–73; PULSE 58–91; TEMP 35.8–36.4; O2SAT 93–98
[2016-10-03] MEDS: IPRATROPIUM BROMIDE NEB SOLN 0.02% 2.5 ML VIAL INH SCH ×4 (01:30→18:40)
[2016-10-03] MEDS: LEVALBUTEROL 1.25MG/0.5ML NEB INH SCH ×4 (01:30→18:40)
[2016-10-03] MEDS: SODIUM CHLORIDE 0.9% 1000ML 1,000 ML IV SCH ×2 (03:09→14:32)
[2016-10-03] MEDS: ACETAMINOPHEN 325 MG TAB PO PRN ×2 (04:02→08:56)
[2016-10-03 05:55] LABS: HEMATOCRIT 33.6 % (37-47); MEAN CELL VOLUME 90.8 fL (80-100); MEAN CORPUSCULAR HEMOGLOBIN 32.4 pg (25-34); MEAN CORPUSCULAR HGB CONC 35.7 g/dl (32-36); PLATELET COUNT 114 K/uL (130-400); WHITE BLOOD COUNT 6.29 K/uL (4.8-10.8)
[2016-10-03 06:05] LABS: PROTHROMBIN TIME (PATIENT) 10.5 SECONDS (9.0-12.0)
[2016-10-03 06:25] LABS: BASO % 0.5 %; BASO ABS # 0.03 K/uL (0-0.2); COMPLETE YES; IG% 1.1 %; LYMPH % 12.7 %; MONO % 7.9 %; NEUT % 77.8 %
[2016-10-03 06:41] LABS: ALT/SGPT 19 U/L (12-78); AST/SGOT 9 U/L (15-37); BLOOD UREA NITROGEN 14 mg/dl (7-18); BUN/CREATININE RATIO 20.1 (10-20); CARBON DIOXIDE 26 mmol/L (21-32); CHLORIDE 113 mmol/L (98-107); CREATININE 0.72 mg/dl (0.60-1.20); GLUCOSE 143 mg/dl (70-99); MAGNESIUM 2.3 mg/dl (1.8-2.4); POTASSIUM 4.1 mmol/L (3.5-5.1); SODIUM 144 mmol/L (136-145)
[2016-10-03 06:44] LABS: ALKALINE PHOSPHATASE 50 U/L (45-117)
[2016-10-03] MEDS: LEVOTHYROXINE 100 MCG TAB PO SCH (06:49)
[2016-10-03] MEDS: LIDODERM (LIDOCAINE) PATCH 5% TD SCH (06:50)
[2016-10-03] MEDS: BOOST PLUS VANILLA PO SCH ×2 (08:15)
[2016-10-03] MEDS: DOCUSATE SODIUM 100 MG CAP PO SCH ×2 (08:16→21:21)
[2016-10-03] MEDS: GUAIFENESIN 600 MG TABCR PO SCH ×2 (08:16→21:21)
[2016-10-03] MEDS: CHOLECALCIFEROL 1000 INTER.UNIT TAB PO SCH (08:16)
[2016-10-03] MEDS: CALCIUM 600MG + VIT D 400 IU TAB PO SCH (08:17)
[2016-10-03] MEDS: LEVETIRACETAM 500 MG TAB PO SCH ×2 (08:17→21:21)
[2016-10-03] MEDS: ENOXAPARIN 60 MG/0.6 ML SYR SQ SCH (08:18)
[2016-10-03] MEDS ORDERED: BOOST PLUS VANILLA PO SCH ×2 (09:00)
--- NOTE | 2016-10-03 13:41 | Family Medicine Progress Note ---
Progress Note Date of Service Oct 03, 2016. Subjective Pt evaluation today including: conversation w/ patient Voiding: no voiding problems complains of cough Needed 1:1 overnight due to her attempting to pulling out her IV Constitutional: No chills, No fever Respiratory: + cough, + sputum, No dyspnea on exertion, No shortness of breath, No wheezing Cardiovascular: No chest pain, No orthopnea Abdomen: No diarrhea, No nausea, No pain, No vomiting Musculoskeletal: No joint pain Female : No dysuria, No urinary frequency Objective Physical Exam General Appearance: no apparent distress, + thin Eyes: PERRL, EOMI ENT: hearing grossly normal Neck: no adenopathy Respiratory/Chest: no respiratory distress, no accessory muscle use, + decreased breath sounds, + rhonchi (L>R) Cardiovascular: regular rate, rhythm, no edema, no JVD, no murmur Abdomen: normal bowel sounds, non tender, soft Extremities: non-tender, normal inspection, no pedal edema, no calf tenderness Neurologic/Psychiatric: no motor/sensory deficits, alert, oriented x 3 ( intermittently), + depressed affect Assessment and Plan This is an 80 y/o F with a h/o of Dementia, Grade IV GBM s/p rt temporal craniectomy (still on chemo, Avastin), PE, who presented with near syncopal episodes likely 2/2 to left lung base pneumonia. Shortness of breath 2/2 left lower lobe pneumonia- improving Ceftriaxone, Azithromycin Recheck EKG - with improved QT at 451 (from 490) low risk for aspiration pneumonia- patient has not had any dysphagia? Xoponex and Atrovent Steroids dc'd- no known history of smoking/ lung disease Influenza negative Near syncopal episodes- no further episodes Orthostatic vitals positive, check qshift Monitor on Tele- no events except sinus isabel at night, some PAC's Troponin x 3 negative Possibly from dehydration - IV NSS H/O of PE: Lovenox 60- therapeutic Dementia- mild agitation here 1:1 Haldol 2 mg GBM / Seizures Continue Keppra Currently on Avastin for GBM- would hold during infection. Dr. Gautam has rescheduled her next dose for the . Hypercholesterolemia continue simvastatin 10 mg Hypothyroidism levothyroxine 100 g Code: Full Dispo: PT/OT lauren Met with daughter in the afternoon; Gave her an update. Did say that PT may recommend acute rehab given her falls but she's not sure her mother will be agreeable to that. She did also say that, her mother has always been unsteady on her feet and has had multiple fractures as a result. She cannot use a walker. anticipate D/C on the weekend. Reviewed: Pt Seen/Exam by Me History Resident Physician Supervision Note: I interviewed and examined the patient. Discussed with Dr. Duffy and agree with findings and plan as documented in the note. Any exceptions or clarifications are listed here: Complaining of a lot of coughing today. She is wheezing. Vitals reviewed No acute distress, thin, alert awake oriented 1 only Regular rate and rhythm, no murmurs gallops or rubs Crackles and rhonchi left lower and left middle lung castro as well as right lower lung field, diffuse expiratory wheezing Abdomen positive bowel sounds soft nontender nondistended Extremities no edema, 2+ dorsalis pedis pulses Neuro-has mild esotropia in the left eye, moving all extremities, substitutes words and is confused at times 80-year-old female with history of grade 4 glioblastoma multiforme currently undergoing chemotherapy, here with community-acquired pneumonia. -Continue Rocephin and changed to azithromycin secondary to prolonged QT- azithromycin could also prolong QTc interval -repeat ECG shows improvement -Supportive care for dementia and watch for delirium and sundowning while in the hospital -Bronchodilators -All other medical conditions are stable at this time and will continue home medications Documented By: Xochilt Ramos
[2016-10-03] MEDS: AZITHROMYCIN IV 500 MG in DEXTROSE 5% 250ML 250 ML IV SCH (18:43)
[2016-10-03] MEDS: CEFTRIAXONE SOD INJ 1 GM in DEXTROSE 5% ADD-VANTAGE 50ML 50 ML IV SCH (21:20)
[2016-10-03] MEDS: SIMVASTATIN 10 MG TAB PO SCH (21:22)
[2016-10-04] VITALS (10 sets, daily range): BP systolic 133–155; BP diastolic 71–99; PULSE 66–88; TEMP 36.2–36.8; O2SAT 90–98
[2016-10-04] MEDS: IPRATROPIUM BROMIDE NEB SOLN 0.02% 2.5 ML VIAL INH SCH ×4 (02:36→18:55)
[2016-10-04] MEDS: LEVALBUTEROL 1.25MG/0.5ML NEB INH SCH ×4 (02:36→18:55)
[2016-10-04] MEDS: SODIUM CHLORIDE 0.9% 1000ML 1,000 ML IV SCH ×2 (04:12→17:57)
[2016-10-04 05:45] LABS: BASO % 0.5 %; BASO ABS # 0.02 K/uL (0-0.2); COMPLETE YES; EOS % 0.5 %; HEMATOCRIT 32.8 % (37-47); IG% 4.3 %; LYMPH % 26.3 %; LYMPH ABS # 1.04 K/uL (1.2-3.4); MEAN CELL VOLUME 93.4 fL (80-100); MEAN CORPUSCULAR HEMOGLOBIN 32.5 pg (25-34); MEAN CORPUSCULAR HGB CONC 34.8 g/dl (32-36); MEAN PLATELET VOLUME 8.4 fL (7.4-10.4); MONO % 10.1 %; NEUT % 58.3 %; PLATELET COUNT 115 K/uL (130-400); RED BLOOD COUNT 3.51 M/uL (4.2-5.4); WHITE BLOOD COUNT 3.96 K/uL (4.8-10.8)
[2016-10-04 05:55] LABS: PARTIAL THROMBOPLASTIN RATIO 0.9; PROTHROMBIN TIME (PATIENT) 10.6 SECONDS (9.0-12.0)
[2016-10-04 06:11] LABS: ALT/SGPT 17 U/L (12-78); AST/SGOT 9 U/L (15-37); BLOOD UREA NITROGEN 19 mg/dl (7-18); BUN/CREATININE RATIO 23.2 (10-20); CALCIUM 7.8 mg/dl (8.5-10.1); CARBON DIOXIDE 25 mmol/L (21-32); CHLORIDE 114 mmol/L (98-107); GLUCOSE 92 mg/dl (70-99); MAGNESIUM 2.3 mg/dl (1.8-2.4); POTASSIUM 3.8 mmol/L (3.5-5.1); SODIUM 146 mmol/L (136-145)
[2016-10-04 06:13] LABS: ALKALINE PHOSPHATASE 42 U/L (45-117)
[2016-10-04] MEDS: LEVOTHYROXINE 100 MCG TAB PO SCH (06:23)
[2016-10-04] MEDS: LIDODERM (LIDOCAINE) PATCH 5% TD SCH (07:00)
[2016-10-04] MEDS: BOOST PLUS VANILLA PO SCH ×2 (07:48)
[2016-10-04] MEDS: CALCIUM 600MG + VIT D 400 IU TAB PO SCH (07:49)
[2016-10-04] MEDS: LEVETIRACETAM 500 MG TAB PO SCH ×2 (07:49→19:36)
[2016-10-04] MEDS: ENOXAPARIN 60 MG/0.6 ML SYR SQ SCH (07:49)
[2016-10-04] MEDS: CHOLECALCIFEROL 1000 INTER.UNIT TAB PO SCH (07:49)
[2016-10-04] MEDS: DOCUSATE SODIUM 100 MG CAP PO SCH ×2 (07:49→19:36)
[2016-10-04] MEDS: GUAIFENESIN 600 MG TABCR PO SCH ×2 (07:49→19:36)
[2016-10-04] MEDS: ACETAMINOPHEN 325 MG TAB PO PRN (09:49)
--- NOTE | 2016-10-04 15:38 | Hospitalist Progress Note ---
Hospitalist Progress Note Date of Service Oct 04, 2016. Subjective Pt evaluation today including: conversation w/ patient, physical exam, lab review, review of inpatient medication list Pt feeling better today. Less cough. Afebrile. Eating well Constitutional: No chills, No fever Eyes: No problem reported ENT: No problem reported Respiratory: + cough Cardiovascular: No chest pain Abdomen: No diarrhea, No pain All Other Systems: Reviewed and Negative Objective Vital Signs Date Time Temp Pulse Resp B/P Pulse Ox O2 Delivery O2 Flow Rate FiO2 10/04/16 14:52 36.4 82 16 145/74 95 10/04/16 14:16 80 16 98 Room Air 10/04/16 12:00 Room Air 10/04/16 11:14 36.3 83 16 138/71 98 Room Air 10/04/16 08:00 Room Air 10/04/16 07:40 66 16 95 Room Air 10/04/16 06:52 36.2 68 16 140/78 90 Room Air 135/92 135/79 10/04/16 05:52 36.2 68 18 133/78 98 Room Air 10/04/16 04:15 Room Air 10/04/16 00:50 Room Air 10/03/16 22:27 36.4 71 18 105/63 93 Room Air 112/59 120/73 10/03/16 20:00 Room Air 10/03/16 19:47 36.3 84 18 109/66 95 Room Air 10/03/16 18:40 73 16 98 Room Air 10/03/16 17:48 72 18 96 Room Air 10/03/16 17:27 58 110/53 76 123/58 78 106/60 10/03/16 16:00 Room Air 10/03/16 15:34 36.3 68 18 107/66 95 Room Air Physical Exam General Appearance: no apparent distress, + thin Eyes: sclerae normal ENT: hearing grossly normal Neck: trachea midline Respiratory/Chest: no respiratory distress, no accessory muscle use, + crackles (at bases bilat) Cardiovascular: regular rate, rhythm, no edema, no murmur Abdomen: normal bowel sounds, non tender, soft Extremities: normal inspection, no pedal edema, no calf tenderness Neurologic/Psychiatric: alert Skin: normal color, warm/dry, no rash Laboratory Results Last 24 Hours Test 10/04/16 05:28 White Blood Count 3.96 K/uL Red Blood Count 3.51 M/uL Hemoglobin 11.4 g/dL Hematocrit 32.8 % Mean Corpuscular Volume 93.4 fL Mean Corpuscular Hemoglobin 32.5 pg Mean Corpuscular Hemoglobin Concent 34.8 g/dl Platelet Count 115 K/uL Mean Platelet Volume 8.4 fL Neutrophils (%) (Auto) 58.3 % Lymphocytes (%) (Auto) 26.3 % Monocytes (%) (Auto) 10.1 % Eosinophils (%) (Auto) 0.5 % Basophils (%) (Auto) 0.5 % Neutrophils # (Auto) 2.31 K/uL Lymphocytes # (Auto) 1.04 K/uL Monocytes # (Auto) 0.40 K/uL Eosinophils # (Auto) 0.02 K/uL Basophils # (Auto) 0.02 K/uL RDW Standard Deviation 47.8 fL RDW Coefficient of Variation 14.0 % Immature Granulocyte % (Auto) 4.3 % Immature Granulocyte # (Auto) 0.17 K/uL Prothrombin Time 10.6 SECONDS Prothromb Time International Ratio 1.0 Activated Partial Thromboplast Time 24.3 SECONDS Partial Thromboplastin Ratio 0.9 Sodium Level 146 mmol/L Potassium Level 3.8 mmol/L Chloride Level 114 mmol/L Carbon Dioxide Level 25 mmol/L Anion Gap 7.0 mmol/L Blood Urea Nitrogen 19 mg/dl Creatinine 0.80 mg/dl Est Creatinine Clear Calc Drug Dose 36.0 ml/min Estimated GFR () 80.1 Estimated GFR (Non- 69.1 BUN/Creatinine Ratio 23.2 Random Glucose 92 mg/dl Calcium Level 7.8 mg/dl Magnesium Level 2.3 mg/dl Total Bilirubin 0.2 mg/dl Direct Bilirubin < 0.1 mg/dl Aspartate Amino Transf (AST/SGOT) 9 U/L Alanine Aminotransferase (ALT/SGPT) 17 U/L Alkaline Phosphatase 42 U/L Total Protein 5.1 gm/dl Albumin 2.6 gm/dl Assessment and Plan This is an 80-year-old female with history of grade 4 glioblastoma multiforme currently undergoing chemotherapy and s/p rt temporal craniectomy, PE, who presented with near syncopal episodes secondary to community-acquired pneumonia. -Supportive care for dementia and watch for delirium and sundowning while in the hospital -Bronchodilators -All other medical conditions are stable at this time and will continue home medications CAP, Presyncope- improving, orthostatic initially, now resolved with IVF hydration and treatment of PNA continue Ceftriaxone, Azithromycin Repeat EKG with improved QTc - 451 (from 490) continue Xoponex and Atrovent -likely dc to home tomorrow with po abs ceftin and azithro Near syncopal episodes- no further episodes Orthostatic vitals positive initially, now improved Monitor on Tele- no events except sinus isabel at night, some PAC's Troponin x 3 negative Possibly from dehydration - IV NSS stopped H/O of PE: Lovenox 60- therapeutic dosing 1.5mg/kg once daily Dementia- mild agitation here-requiring 1:1 at times 1:1 Haldol 2 mg prn GBM / Seizures-stable, no sz activity here Continue Greg Currently on Avastin for GBM- would hold during infection. Dr. Gautam has rescheduled her next dose for the . Hypercholesterolemia continue simvastatin 10 mg Hypothyroidism levothyroxine 100 g Code: Full Dispo: PT/OT [place] -recommending return home with 12/01 care -probably dc to home tomorrow
[2016-10-04] MEDS: AZITHROMYCIN IV 500 MG in DEXTROSE 5% 250ML 250 ML IV SCH (19:20)
[2016-10-04] MEDS: SIMVASTATIN 10 MG TAB PO SCH (19:36)
[2016-10-04] MEDS: CEFTRIAXONE SOD INJ 1 GM in DEXTROSE 5% ADD-VANTAGE 50ML 50 ML IV SCH (21:36)
[2016-10-05] VITALS (9 sets, daily range): BP systolic 146–171; BP diastolic 67–90; PULSE 66–95; TEMP 36.3–36.8; O2SAT 95–98
[2016-10-05] MEDS: IPRATROPIUM BROMIDE NEB SOLN 0.02% 2.5 ML VIAL INH SCH ×3 (02:14→14:05)
[2016-10-05] MEDS: LEVALBUTEROL 1.25MG/0.5ML NEB INH SCH ×3 (02:14→14:05)
[2016-10-05] MEDS: ACETAMINOPHEN 325 MG TAB PO PRN ×2 (03:19→07:50)
[2016-10-05] MEDS: SODIUM CHLORIDE 0.9% 1000ML 1,000 ML IV SCH (05:39)
[2016-10-05] MEDS: LIDODERM (LIDOCAINE) PATCH 5% TD SCH (05:39)
[2016-10-05] MEDS: LEVOTHYROXINE 100 MCG TAB PO SCH (05:39)
[2016-10-05] MEDS: LEVETIRACETAM 500 MG TAB PO SCH (07:48)
[2016-10-05] MEDS: CHOLECALCIFEROL 1000 INTER.UNIT TAB PO SCH (07:48)
[2016-10-05] MEDS: DOCUSATE SODIUM 100 MG CAP PO SCH (07:49)
[2016-10-05] MEDS: CALCIUM 600MG + VIT D 400 IU TAB PO SCH (07:49)
[2016-10-05] MEDS: GUAIFENESIN 600 MG TABCR PO SCH (07:49)
[2016-10-05] MEDS: ENOXAPARIN 60 MG/0.6 ML SYR SQ SCH (07:50)
[2016-10-05] MEDS: BOOST PLUS VANILLA PO SCH ×2 (08:13)
[2016-10-05 08:44] LABS: HEMATOCRIT 33.7 % (37-47); MEAN CELL VOLUME 92.3 fL (80-100); MEAN CORPUSCULAR HEMOGLOBIN 32.3 pg (25-34); MEAN PLATELET VOLUME 8.8 fL (7.4-10.4); PLATELET COUNT 118 K/uL (130-400); RED BLOOD COUNT 3.65 M/uL (4.2-5.4); WHITE BLOOD COUNT 4.49 K/uL (4.8-10.8)
[2016-10-05 09:10] LABS: BASO % 0.4 %; BASO ABS # 0.02 K/uL (0-0.2); COMPLETE YES; EOS % 1.3 %; IG% 6.2 %; LYMPH % 18.3 %; LYMPH ABS # 0.82 K/uL (1.2-3.4); MONO % 9.6 %; NEUT % 64.2 %
[2016-10-05 09:21] LABS: CALCIUM 8.3 mg/dl (8.5-10.1); CREATININE 0.67 mg/dl (0.60-1.20); MAGNESIUM 1.9 mg/dl (1.8-2.4); POTASSIUM 3.1 mmol/L (3.5-5.1)
[2016-10-05] MEDS ORDERED: ENOX80IN SQ (12:20)
[2016-10-05] MEDS ORDERED: CEFD1CAP14 PO (12:20)
[2016-10-05] MEDS ORDERED: GFNSR600 PO (12:20)
[2016-10-05] MEDS ORDERED: VNTHFA/IN INH (12:20)
[2016-10-05] MEDS ORDERED: AZIT-57 PO (12:20)
[2016-10-05] MEDS ORDERED: NUTR-977 PO (12:20)
--- NOTE | 2016-10-05 12:24 | Discharge Instructions ---
Discharge Instructions Date of Service Oct 05, 2016. Admission Reason for Admission: Left Lower Lobe Pneumonia Discharge Discharge Diagnosis / Problem: Pneumonia Discharge Goals Goal(s): Improve disease control, Therapeutic intervention Activity Recommendations Activity Limitations: resume your previous activity . Instructions / Follow-Up Instructions / Follow-Up You were admitted with pneumonia and weakness with falls due to your illness. You were given IV antibiotics and IV fluids and had significant improvement. You should follow up with your PCP within 1 week and will need to have a repeat chest xray within 3-4 weeks to ensure the pneumonia has completely cleared. Please finish out all of the antibiotics as prescribed. Also, please note your Lovenox dose was changed to 60mg once daily due to your significantly low weight (previous dose was 80mg and is too high for your current weight). You are encouraged to drink protein supplement shakes once daily to help improve your nutritional status. Please continue follow up with your Oncologist as scheduled, but your chemotherapy may need to be placed on hold until you are completely recovered from your pneumonia. Current Hospital Diet Patient's current hospital diet: Regular Diet Discharge Diet Recommended Diet: Regular Diet Procedures Procedures Performed: Chest xray Head CT Pending Studies Studies pending at discharge: yes List of pending studies: Final Blood culture results-no growth to date Medical Emergencies . Who to Call and When: Medical Emergencies: If at any time you feel your situation is an emergency, please call 911 immediately. . Non-Emergent Contact Non-Emergency issues call your: Primary Care Provider Call Non-Emergent contact if: you have a fever, you have any medication questions if you have worsening diarrhea, shortness of breath, worsening cough, or return of your weakness, please call your primary care doctor. . . "Provider Documentation" section prepared by Xochilt Ramos. VTE Core Measure Inpt VTE Proph given/why not?: Enoxaparin (Lovenox)SQ
[2016-10-05] MEDS: POTASSIUM CHLR 10 MEQ / WTR 10 MEQ in PREMIXED WATER 100 ML IV SCH ×4 (12:51→15:42)
[2016-10-05] MEDS ORDERED: AZITHROMYCIN 250 MG TAB PO SCH (18:00)
--- NOTE | 2016-10-05 18:14 | Discharge Summary ---
Discharge Summary Date of Service Oct 05, 2016. Discharge Summary Admission Date: Oct 01, 2016 at 16:35 Discharge Date: Oct 05, 2016 Discharge Disposition: Home with services Principal Diagnosis: community-acquired pneumonia Problems/Secondary Diagnoses: Acute sinusitis History of grade 4 glioblastoma multiforme Near syncope secondary to orthostatic hypotension Dementia Prolonged QTC-resolved History of pulmonary embolism Seizure disorder Hypercholesterolemia Hypothyroidism Immunizations: Have You Had Influenza Vaccine: No History of Tetanus Vaccine?: Yes History of Pneumococcal: No History of Hepatitis B Vaccine: No Procedures: CT SCAN OF THE BRAIN WITHOUT IV CONTRAST CLINICAL HISTORY: Headache. COMPARISON STUDY: CT of the brain dated 07/09/2016. TECHNIQUE: Unenhanced axial CT scan of the brain is performed from the vertex to the skull base. CT DOSE: 537.48 mGy.cm FINDINGS: Brain parenchyma: Right temporal encephalomalacia is unchanged and consistent with previous tumor resection. Dural thickening deep to the craniotomy site is likely on a postoperative basis. There are age-related involutional changes noting moderate subcortical and periventricular microangiopathic change. There is no hemorrhage, mass effect, or evidence of acute territorial ischemia by CT criteria. Nguyen-white matter is preserved. No extra-axial fluid collection is seen. Ventricles, sulci, cisterns: Prominent secondary to involutional change. Intracranial vasculature: There is atherosclerotic calcification of the cavernous carotid and vertebral arteries. Calvarium: There are changes from right temporal craniotomy. No destructive calvarial lesion is seen. Sinuses and mastoids: There is moderate mucosal thickening within the ethmoid sinuses. Moderate mucosal thickening is seen within the sphenoid sinuses and the left frontal sinus. Air-fluid levels are noted within the maxillary antra and sphenoid sinuses. The mastoid air cells are well pneumatized. Orbits: The bony orbits are grossly intact. IMPRESSION: 1. There is no hemorrhage, mass effect, or evidence of acute territorial ischemia by CT criteria. 2. Chronic and postoperative changes as above. There has been no significant change from 07/09/2016. 3. Paranasal sinus disease as above. Correlate clinically for evidence of acute sinusitis. TWO VIEW CHEST CLINICAL HISTORY: Cough. FINDINGS: PA and lateral chest radiographs are compared to study dated 07/09/2016 and correlated with chest CT dated 11/08/2015. The PA view is degraded by patient rotation. The cardiomediastinal silhouette is unremarkable. There is atherosclerotic calcification of the thoracic aorta. Findings suggest obstructive physiology. There is chronic interstitial thickening. Patchy airspace opacities are seen at the left lung base. No large pleural effusion or pneumothorax is identified. The skeletal structures are osteopenic. The bony thorax appears intact. Postoperative change is identified within one of the humeri on the lateral projection. IMPRESSION: 1. Findings suggest emphysema. 2. Patchy airspace opacities are identified at the left lung base. Correlate clinically for evidence of aspiration pneumonitis/pneumonia. Radiographic follow-up to resolution is recommended. Consultations: None Medication Reconciliation New Medications: Albuterol Hfa (Ventolin Hfa) 200 Puffs/92038 Mcg Aers 2-4 PUFFS INH Q6H, #1 INHALER Cefdinir (Omnicef) 300 Mg Cap 300 MG PO Q12H for 2 Days, #4 CAP Next dose due morning of 10/06/16 Azithromycin (Azithromycin) 250 Mg Tab 250 MG PO DAILY for 2 Days, #2 TAB Next dose due 10/06/16 at 5 PM Enteral Nutrition Formula (Ensure Plus Vanilla) 1 Can Liqd 1 CAN PO DAILY for 30 Days, #30 EA Guaifenesin Ext Rel (Mucinex Ext Rel) 600 Mg Tabcr 600 MG PO Q12 for 14 Days, #28 OTC Changed Medications: Enoxaparin (Lovenox) 80 Mg/0.8 Ml Inj 60 MG SQ Q24H for 30 Days, #30 SYR (Changed from: 80 MG) Note the dose change due to weight 40 kg Continued Medications: Calcium Carbonate-Vitamin D W/ (Caltrate 600 Plus) 1 Tab Tab 1 TAB PO DAILY, TAB Cholecalciferol (Vitamin D 1000 Unit) 1,000 Unit Cap 1000 INTER.UNIT PO DAILY, CAP Docusate Sodium (Docusate Sodium) 100 Mg Cap 1 CAP PO BID for 7 Days, #14 CAP Levetiracetam (Keppra) 500 Mg Tab 500 MG PO BID, TAB Levothyroxine Sodium (Levothyroxine Sodium) 100 Mcg Tab 1 TAB PO DAILY for 90 Days, #90 TAB 3 Refills Lidocaine (Lidoderm Patch 5%) 1 Ea Tdsy 2 PATCH EXT DAILY@0700 Lorazepam (Ativan) 0.5 Mg Tab 0.5 MG PO DAILY PRN for Anxiety, TAB Senna/Docusate Sod (Senokot S) 1 Tab Tab 1 TAB PO DAILY PRN for Constipation, TAB Simvastatin (Zocor) 10 Mg Tab 10 MG PO QPM, 0 Refills Discontinued Medications: Ciprofloxacin (Ciprofloxacin HCl) 500 Mg Tab 500 MG PO Q12@0600,1800 for 2 Days, #5 TAB please take one tonight, then Bid for 2 days. Referrals At Discharge Follow up Referrals: Physician Referral - Within 1 Week with Jack Gonzales M.D. Discharge Exam Patient doing well on day of discharge, she is eating regular food and has her appetite back. Some cough. She is not requiring oxygen with ambulation. Her orthostatics were only minimally positive on the day of discharge, however she was hypertensive and she remained asymptomatic. She was hypertensive on the day of discharge with blood pressures in the 160s systolic. However, blood pressure was previously 100 systolic and so an antihypertensive was not started. She was anxious for discharge. Physical Exam General Appearance: no apparent distress, + thin Eyes: sclerae normal ENT: hearing grossly normal Neck: trachea midline Respiratory/Chest: no respiratory distress, no accessory muscle use, + crackles at the left base Cardiovascular: regular rate, rhythm, no edema, no murmur Abdomen: normal bowel sounds, non tender, soft Extremities: normal inspection, no pedal edema, no calf tenderness Neurologic/Psychiatric: alert Skin: normal color, warm/dry, no rash Review of Systems: Constitutional: No chills, No fever Eyes: No problem reported ENT: No problem reported Respiratory: + cough, No wheezing Cardiovascular: No chest pain Abdomen: No constipation, No diarrhea, No nausea, No pain, No vomiting Musculoskeletal: No problem reported Genitourinary - Female: No problem reported Neurologic: + memory loss Psychiatric: No problem reported Endocrine: No problem reported Hematologic / Lymphatic: No problem reported Integumentary: No problem reported Hospital Course This is an 80-year-old female with history of grade 4 glioblastoma multiforme currently undergoing chemotherapy and s/p rt temporal craniectomy, PE, who presented with near syncopal episodes secondary to community-acquired pneumonia. CAP, Presyncope- improving, orthostatic initially, now resolved with IVF hydration and treatment of PNA Received Ceftriaxone, Azithromycin 3 days and we'll switch to by mouth azithromycin and Omnicef for a total of 7 in 5 days respectively Repeat EKG with improved QTc - 451 (from 490 after receiving Levaquin) Received bronchodilator nebulizers and had resolution of her wheezing -she will be discharged home and follow up with her PCP within one week-is recommended that she have a repeat chest x-ray in 3-4 weeks to ensure resolution of her pneumonia radiographically Near syncopal episodes- no further episodes Orthostatic vitals positive initially, now improved Monitored on Tele- no events except sinus isabel at night, some PAC's Troponin x 3 negative Possibly from dehydration - IV NSS stopped H/O of PE: Lovenox 60- therapeutic dosing 1.5mg/kg once daily -note this is a change from her home dose of 80 mg. Her weight here was only 40 kg and therefore therapeutic dose for once daily dosing is as above Dementia- mild agitation here-requiring 1:1 at times to keep her from pulling out her IV-this improved after treatment for her pneumonia and likely was a component of delirium -Supportive care at home GBM / Seizures-stable, no sz activity here Continue Greg Currently on Avastin for GBM- would hold during infection. Dr. Gautam has rescheduled her next dose for the . Hypercholesterolemia continue simvastatin 10 mg Hypothyroidism levothyroxine 100 g Hypokalemia- potassium was 3.1 on the day of discharge. This was replaced with potassium chloride 40 mEq IV over 4 hours. This is likely related to her poor by mouth intake over the previous several days. Her appetite is now improved and I do not suspect this will recur. Code: Full Dispo: PT/OT evals -recommending return home with 24/ care and home health Total Time Spent: Greater than 30 minutes This includes examination of the patient, discharge planning, medication reconciliation, and communication with other providers. Discharge Instructions Please refer to the electronic Patient Visit Report (Discharge Instructions) for additional information. Follow-Up With PCP within one week With oncology as scheduled Additional Copies To Jack Gonzales M.D.
[2016-11-18] MEDS ORDERED: VTMB12 PO (09:52)
[2016-11-18] MEDS ORDERED: SRQ25 PO (09:52)
== END 2016-10-05 18:13 | disposition home health service (06) | DRG 194 ==
LOC: ENRESERVTM → ENRESERVDT → C.EDB 13:14 → C.MED 16:35
PROVIDERS: ADMIT Hospitalist; ATTEND Family Medicine
DX: J18.9 Pneumonia, unspecified organism (principal); C71.9 Malignant neoplasm of brain, unspecified; F03.91 Unspecified dementia, unspecified severity, with behavioral disturbance; Z68.1 Body mass index [BMI] 19.9 or less, adult; I95.1 Orthostatic hypotension; J01.40 Acute pansinusitis, unspecified; E86.0 Dehydration; D72.819 Decreased white blood cell count, unspecified; D69.6 Thrombocytopenia, unspecified; R19.7 Diarrhea, unspecified; I45.81 Long QT syndrome; E87.6 Hypokalemia; G40.909 Epilepsy, unspecified, not intractable, without status epilepticus; E03.9 Hypothyroidism, unspecified; E78.00 Pure hypercholesterolemia, unspecified; M81.0 Age-related osteoporosis without current pathological fracture; Z79.899 Other long term (current) drug therapy; Z79.01 Long term (current) use of anticoagulants; Z86.711 Personal history of pulmonary embolism; Z98.890 Other specified postprocedural states; Z91.81 History of falling

== ENCOUNTER 2016-11-14 12:28 | Inpatient (IN) | payer OTHER, BC ==
[~2016-11-14] VITALS: Ht 162.6 cm; Wt 39.1 kg
[~2016-11-14 12:28] MED LIST changes: +AZIT-57 PO; -CPR500 PO; +GFNSR600 PO; +NUTR-977 PO; -OXYC1TAB3 PO; +VNTHFA/IN INH
[2016-11-14] MEDS ORDERED: SODIUM CHLORIDE 0.9% 1000ML 1,000 ML IV STA (13:05)
--- NOTE | 2016-11-14 13:13 | EMERGENCY ROOM VISIT NOTE ---
History Report prepared by Waldemar: Paul Prince Under the Supervision of: Dr. Libby Barboza M.D. First contact with patient: 12:57 Chief Complaint: MENTAL HEALTH EVALUATION Stated Complaint: VERY CONFUSED History of Present Illness The patient is an 80 year old female who presents to the Emergency Room with complaints of worsening confusion over the past week. The patient is confused at baseline secondary to Alzheimer's.She has also had increased agitation. Per , the patient has been trying to leave the house when he is not looking. Per daughter, she has attempted to leave the house 3 times now. She was also stating that the patient thought that her house was not actually her house and that somebody has replaced the furniture in her house. The patient is currently being treated for a brain tumor. The patient is not longer taking Lovenox. The patient did not have much to eat today. Family notes that she normally eats when meals are prepared for her. Source of History: patient, family Onset: today Position: other (global) Quality: other (confusion) Timing: worsening Note: Positive: Agitation. Review of Systems See HPI for pertinent positives & negatives. A total of 10 systems reviewed and were otherwise negative. Past Medical & Surgical Medical Problems: (1) Anemia (2) Arm fracture, right (3) Elevated cholesterol (4) History of pulmonary embolus (PE) (5) Hypothyroidism (6) Left lower lobe pneumonia (7) Osteoarthritis (8) Osteoporosis (9) Swelling of left hand Surgical Problems: (1) S/P wrist surgery Family History Patient reports no known family medical history. Social History Smoking Status: Never Smoker Alcohol Use: none Drug Use: none Marital Status: Housing Status: lives with significant other Occupation Status: retired Current/Historical Medications Scheduled Calcium Carbonate-Vitamin D W/ (Caltrate 600 Plus), 1 TAB PO DAILY Cholecalciferol (Vitamin D 1000 Unit), 1,000 INTER.UNIT PO DAILY Docusate Sodium (Docusate Sodium), 100 MG PO BID Enteral Nutrition Formula (Ensure Plus Vanilla), 1 CAN PO DAILY Levetiracetam (Keppra), 500 MG PO BID Levothyroxine Sodium (Synthroid), 88 MCG PO DAILY Simvastatin (Zocor), 10 MG PO QPM Scheduled PRN Lorazepam (Ativan), 0.5 MG PO DAILY PRN for Anxiety Allergies Coded Allergies: Lactose (Verified Allergy, Unknown, ., 11/14/16) Penicillins (Verified Allergy, Unknown, ., 11/14/16) Phenylephrine (Verified Adverse Reaction, Mild, NAUSEA, 11/14/16) Sulfamethoxazole w/Trimethoprim (Verified Adverse Reaction, Unknown, nausea, 11/14/16) allscripts Physical Exam Vital Signs Date Time Temp Pulse Resp B/P Pulse Ox O2 Delivery O2 Flow Rate FiO2 11/14/16 15:22 71 18 158/61 96 Room Air 11/14/16 14:03 75 18 171/96 97 Room Air 11/14/16 12:42 36.5 81 18 165/79 96 Room Air Physical Exam Vital signs reviewed. General: Elderly but generally well-appearing, in no significant distress. HEENT: No scleral icterus, PERRLA, neck supple. Atraumatic. Cardiovascular: Regular rate and rhythm, no extra sounds. Pulmonary: Clear to auscultation bilaterally, normal work of breathing. Abdomen: Soft, nontender, nondistended, positive bowel sounds. Musculoskeletal: Atraumatic, no peripheral edema. Neurologic/Psych: Somewhat agitated, able to answer questions regarding place person and time but is adamant that someone is moving furniture and that her house is not hers, follows commands appropriately, believes that her is lying to her. Skin: Warm, dry, no rash Medical Decision & Procedures ER Provider Diagnostic Interpretation: Radiology results as stated below per my review and radiologist interpretation: SINGLE VIEW CHEST CLINICAL HISTORY: Change in mental status. Dementia. FINDINGS: An AP, portable, upright chest radiograph is compared to study dated 10/01/2016 and correlated with chest CT dated 11/08/2015. The cardiomediastinal silhouette is unremarkable. There is atherosclerotic calcification of the thoracic aorta. Mild emphysematous change and chronic interstitial thickening are similar to previous. There are scattered calcified granulomas. No airspace consolidation or pleural effusion is seen. No pneumothorax is identified. The skeletal structures are osteopenic. Arthritic changes present in the shoulders. Postoperative change is noted in the distal right humerus. IMPRESSION: Emphysematous change with no acute cardiopulmonary abnormality. Electronically signed by: Govind Schaefer M.D. 11/14/2016 2:11 PM Dictated Date/Time: 11/14/2016 2:[address] SCAN OF THE BRAIN WITHOUT IV CONTRAST CLINICAL HISTORY: Change in mental status. Dementia. COMPARISON STUDY: CT of the brain dated 10/01/2016. TECHNIQUE: Unenhanced axial CT scan of the brain is performed from the vertex to the skull base. CT DOSE: 638.56 mGycm FINDINGS: Brain parenchyma: Right temporal encephalomalacia is unchanged and consistent with previous tumor resection. Dural thickening deep to the craniotomy site is likely on a postoperative basis. There are age-related involutional changes noting moderate subcortical and periventricular microangiopathic change. There is no hemorrhage, mass effect, or evidence of acute territorial ischemia by CT criteria. Nguyen-white matter is preserved. No extra-axial fluid collection is seen. Ventricles, sulci, cisterns: Prominent secondary to involutional change. Intracranial vasculature: There is atherosclerotic calcification of the cavernous carotid and vertebral arteries. Calvarium: There are changes from right temporal craniotomy. No destructive calvarial lesion is seen. Sinuses and mastoids: Mild mucosal thickening is seen within the sphenoid sinuses. The remaining paranasal sinuses are clear. The mastoid air cells are well pneumatized. Orbits: The bony orbits are grossly intact. IMPRESSION: 1. There is no hemorrhage, mass effect, or evidence of acute territorial ischemia by CT criteria. 2. Chronic and postoperative changes as above. These are similar appearance to the 10/01/2016 examination. Electronically signed by: Govind Schaefer M.D. 11/14/2016 2:31 PM Dictated Date/Time: 11/14/2016 2:24 PM Laboratory Results 11/14/16 13:25 Red Blood Count 4.18, Mean Corpuscular Volume 96.2, Mean Corpuscular Hemoglobin 34.0, Mean Corpuscular Hemoglobin Concent 35.3, Mean Platelet Volume 8.5, Neutrophils (%) (Auto) 62.9, Lymphocytes (%) (Auto) 23.3, Monocytes (%) (Auto) 11.8, Eosinophils (%) (Auto) 1.1, Basophils (%) (Auto) 0.3, Neutrophils # (Auto ) 2.19, Lymphocytes # (Auto) 0.81, Monocytes # (Auto) 0.41, Eosinophils # (Auto ) 0.04, Basophils # (Auto) 0.01 11/14/16 13:25 Test 5/26/17 13:25 11/14/16 13:30 11/14/16 13:32 White Blood Count 3.48 K/uL (4.8-10.8) Red Blood Count 4.18 M/uL (4.2-5.4) Hemoglobin 14.2 g/dL (12.0-16.0) Hematocrit 40.2 % (37-47) Mean Corpuscular Volume 96.2 fL (80-100) Mean Corpuscular Hemoglobin 34.0 pg (25-34) Mean Corpuscular Hemoglobin Concent 35.3 g/dl (32-36) Platelet Count 121 K/uL (130-400) Mean Platelet Volume 8.5 fL (7.4-10.4) Neutrophils (%) (Auto) 62.9 % Lymphocytes (%) (Auto) 23.3 % Monocytes (%) (Auto) 11.8 % Eosinophils (%) (Auto) 1.1 % Basophils (%) (Auto) 0.3 % Neutrophils # (Auto) 2.19 K/uL (1.4-6.5) Lymphocytes # (Auto) 0.81 K/uL (1.2-3.4) Monocytes # (Auto) 0.41 K/uL (0.11-0.59) Eosinophils # (Auto) 0.04 K/uL (0-0.5) Basophils # (Auto) 0.01 K/uL (0-0.2) RDW Standard Deviation 51.1 fL (36.4-46.3) RDW Coefficient of Variation 14.4 % (11.5-14.5) Immature Granulocyte % (Auto) 0.6 % Immature Granulocyte # (Auto) 0.02 K/uL (0.00-0.02) Prothrombin Time 10.7 SECONDS (9.0-12.0) Prothromb Time International Ratio 1.0 (0.9-1.1) Activated Partial Thromboplast Time 24.6 SECONDS (21.0-31.0) Partial Thromboplastin Ratio 0.9 Anion Gap 8.0 mmol/L (3-11) Est Creatinine Clear Calc Drug Dose 44.1 ml/min Estimated GFR () 96.5 Estimated GFR (Non- 83.3 BUN/Creatinine Ratio 16.3 (10-20) Calcium Level 8.8 mg/dl (8.5-10.1) Magnesium Level 2.7 mg/dl (1.8-2.4) Total Bilirubin 0.6 mg/dl (0.2-1) Direct Bilirubin 0.1 mg/dl (0-0.2) Aspartate Amino Transf (AST/SGOT) 11 U/L (15-37) Alanine Aminotransferase (ALT/SGPT) 22 U/L (12-78) Alkaline Phosphatase 52 U/L (45-117) Total Protein 6.7 gm/dl (6.4-8.2) Albumin 3.9 gm/dl (3.4-5.0) Urine Color YELLOW Urine Appearance CLEAR (CLEAR) Urine pH 7.0 (4.5-7.5) Urine Specific [place] 1.013 (1.000-1.030) Urine Protein NEG (NEG) Urine Glucose (UA) NEG (NEG) Urine Ketones NEG (NEG) Urine Occult Blood NEG (NEG) Urine Nitrite NEG (NEG) Urine Bilirubin NEG (NEG) Urine Urobilinogen NEG (NEG) Urine Leukocyte Esterase NEG (NEG) Bedside Troponin I 0.000 ng/ml (0-0.045) Laboratory results per my review. Medications Administered Medications (Trade) Dose Ordered Sig/Wilver Route Start Time Stop Time Status Last Admin Dose Admin Sodium Chloride (Nss 1000ml) 1,000 ml @ 125 mls/hr Q8H STAT IV 11/14/16 13:05 11/14/16 21:04 11/14/16 13:05 125 MLS/HR ECG Indication: altered mental status Rate (beats per minute): 73 Rhythm: normal sinus Findings: no acute ischemic change, left axis deviation, no ectopy, other ( likely previous anterior injury) ED Course 1300: Past medical records reviewed. The patient was evaluated in room C2b. A complete history and physical examination was performed. 1305: NSS 1000 ml @ 125 mls/hr. 1510: Discussed the case with Dr. Hurd, [facility]. The patient will be evaluated. Medical Decision Differential diagnosis: Etiologies such as metabolic, infection, hypoglycemia, electrolyte abnormalities , cardiac sources, intracerebral event, toxicologic, neurologic, as well as others were entertained. This patient was evaluated and appeared to be in no significant distress. IV access was obtained and laboratory work was drawn. The patient was placed on the manager cardiac cath and found to be in a normal sinus rhythm. Urinalysis was obtained and is negative. Head CT reveals chronic postsurgical change, but no evidence of acute intracranial hemorrhage or other acute abnormality. The patient's case was discussed with case management. Family felt strongly that the patient is not safe at home. She has now become a threat to her . [facility] is not able to take the patient today, they do not have a bed available. The hospitalist service was consulted for further management. Consults Time Called: 1500 Consulting Physician: Dr. Hurd [facility] Hospitalist. Returned Call: 1510 The patient will be evaluated. Impression Primary Impression: Altered mental status Additional Impressions: GBM (glioblastoma multiforme) Aggressive behavior Scribe Attestation The scribe's documentation has been prepared under my direction and personally reviewed by me in its entirety. I confirm that the note above accurately reflects all work, treatment, procedures, and medical decision making performed by me. Departure Information Dispostion Being Evaluated By Hospitalist Referrals No Doctor, Assigned (PCP) Patient Instructions My [facility] Problem Qualifiers
[2016-11-14 13:44] LABS: BASO % 0.3 %; BASO ABS # 0.01 K/uL (0-0.2); COMPLETE YES; EOS % 1.1 %; HEMATOCRIT 40.2 % (37-47); IG% 0.6 %; LYMPH % 23.3 %; LYMPH ABS # 0.81 K/uL (1.2-3.4); MEAN CELL VOLUME 96.2 fL (80-100); MEAN CORPUSCULAR HGB CONC 35.3 g/dl (32-36); MEAN PLATELET VOLUME 8.5 fL (7.4-10.4); MONO % 11.8 %; NEUT % 62.9 %; PLATELET COUNT 121 K/uL (130-400); RED BLOOD COUNT 4.18 M/uL (4.2-5.4); WHITE BLOOD COUNT 3.48 K/uL (4.8-10.8)
[2016-11-14] MEDS ORDERED: LEVO88TA PO (13:50)
[2016-11-14 13:55] LABS: PARTIAL THROMBOPLASTIN RATIO 0.9; PROTHROMBIN TIME (PATIENT) 10.7 SECONDS (9.0-12.0)
[2016-11-14 14:02] LABS: BUN/CREATININE RATIO 16.3 (10-20); CALCIUM 8.8 mg/dl (8.5-10.1); CREATININE 0.65 mg/dl (0.60-1.20); MAGNESIUM 2.7 mg/dl (1.8-2.4)
[2016-11-14 14:04] LABS: URINE APPEARANCE CLEAR (CLEAR); URINE BILIRUBIN NEG (NEG); URINE COLOR YELLOW; URINE NITRITE NEG (NEG); URINE SPECIFIC GRAVITY 1.013 (1.000-1.030); UROBILINOGEN NEG (NEG); ZZUR CULT IF INDIC CLEAN CATCH NO
--- NOTE | 2016-11-14 14:13 | DIAGNOSTIC IMAGING REPORT ---
SINGLE VIEW CHEST CLINICAL HISTORY: Change in mental status. Dementia. FINDINGS: An AP, portable, upright chest radiograph is compared to study dated 10/01/2016 and correlated with chest CT dated 11/08/2015. The cardiomediastinal silhouette is unremarkable. There is atherosclerotic calcification of the thoracic aorta. Mild emphysematous change and chronic interstitial thickening are similar to previous. There are scattered calcified granulomas. No airspace consolidation or pleural effusion is seen. No pneumothorax is identified. The skeletal structures are osteopenic. Arthritic changes present in the shoulders. Postoperative change is noted in the distal right humerus. IMPRESSION: Emphysematous change with no acute cardiopulmonary abnormality. Electronically signed by: Govind Schaefer M.D. 11/14/2016 2:11 PM Dictated Date/Time: 11/14/2016 2:08 PM
[2016-11-14 14:14] LABS: MANUAL MICROSCOPIC REQUIRED? NO; REVIEW REQ? NO
--- NOTE | 2016-11-14 14:32 | DIAGNOSTIC IMAGING REPORT ---
CT SCAN OF THE BRAIN WITHOUT IV CONTRAST CLINICAL HISTORY: Change in mental status. Dementia. COMPARISON STUDY: CT of the brain dated 10/01/2016. TECHNIQUE: Unenhanced axial CT scan of the brain is performed from the vertex to the skull base. CT DOSE: 638.56 mGycm FINDINGS: Brain parenchyma: Right temporal encephalomalacia is unchanged and consistent with previous tumor resection. Dural thickening deep to the craniotomy site is likely on a postoperative basis. There are age-related involutional changes noting moderate subcortical and periventricular microangiopathic change. There is no hemorrhage, mass effect, or evidence of acute territorial ischemia by CT criteria. Nguyen-white matter is preserved. No extra-axial fluid collection is seen. Ventricles, sulci, cisterns: Prominent secondary to involutional change. Intracranial vasculature: There is atherosclerotic calcification of the cavernous carotid and vertebral arteries. Calvarium: There are changes from right temporal craniotomy. No destructive calvarial lesion is seen. Sinuses and mastoids: Mild mucosal thickening is seen within the sphenoid sinuses. The remaining paranasal sinuses are clear. The mastoid air cells are well pneumatized. Orbits: The bony orbits are grossly intact. IMPRESSION: 1. There is no hemorrhage, mass effect, or evidence of acute territorial ischemia by CT criteria. 2. Chronic and postoperative changes as above. These are similar appearance to the 10/01/2016 examination. Electronically signed by: Govind Schaefer M.D. 11/14/2016 2:31 PM Dictated Date/Time: 11/14/2016 2:24 PM
--- NOTE | 2016-11-14 15:37 | History and Physical ---
History & Physical Date & Time of Service: November 14, 2016 at 15:36 Chief Complaint: Very Confused Primary Care Physician: Jack Gonzales M.D. History of Present Illness Source: patient, family 80 y/o F who was brought to the ED by family today due to worsening dementia. Pt herself has no concerns other than her chronic R elbow pain. Family states she has been eating and drinking without issue. She ate a Whopper yesterday with no issues. No hx of swallowing issues. Pt denies fever, SOB, chest pain, abd pain, n/v/c/d, LE pain or swelling. Family states that she has good days and bad days, but that the bad days are becoming worse and there are less good days. She becomes aggressive at times, yelling, hitting, accusing her of moving furniture around the house or to other houses. She has been hiding things. She has been "crafty" about taking her medications, pocketing them at times. She attempts to leave the house at night or during the day unaccompanied. She sees children or animals in the home that aren't there. Pt lives with her who has health issues and is somewhat frail. There is other family who help, but everyone is having more and more difficulty managing her and they are afraid for her safety. Pt had neurosurgery at [facility] about a year ago for glioblastoma. Things were different after that time but she was mostly at her usual. Over the last few months she has steadily declined. She was given liquid haldol and this helps sometimes, other times not at all. No hx of seroquel use. No hx of B12 replacement. ROS as noted above, otherwise neg. Case management in the ED attempted placement at [facility], however they state they cannot take anyone until after the holiday due to staffing issues. Past Medical/Surgical History Medical Problems: (1) Anemia Status: Chronic (2) Arm fracture, right Status: Resolved (3) Elevated cholesterol Status: Chronic (4) History of pulmonary embolus (PE) Status: Chronic (5) Hypothyroidism Status: Chronic (6) Osteoarthritis Status: Chronic (7) Osteoporosis Status: Chronic (8) Swelling of left hand Status: Resolved Surgical Problems: (1) S/P wrist surgery Status: Resolved History of grade 4 glioblastoma multiforme Near syncope secondary to orthostatic hypotension Dementia Prolonged QTC-resolved History of pulmonary embolism Seizure disorder Hypercholesterolemia Hypothyroidism Family History Family history was reviewed; no changes noted. Social History Smoking Status: Never Smoker Alcohol Use: none Drug Use: none Marital Status: Housing status: lives with family, lives with significant other, other Occupational Status: retired Immunizations History of Influenza Vaccine: No History of Tetanus Vaccine?: Yes History of Pneumococcal: No History of Hepatitis B Vaccine: No Multi-Drug Resistant Organisms History of MDRO: No Allergies Coded Allergies: Lactose (Verified Allergy, Unknown, ., 11/14/16) Penicillins (Verified Allergy, Unknown, ., 11/14/16) Phenylephrine (Verified Adverse Reaction, Mild, NAUSEA, 11/14/16) Sulfamethoxazole w/Trimethoprim (Verified Adverse Reaction, Unknown, nausea, 11/14/16) allscripts Home Medications Scheduled Calcium Carbonate-Vitamin D W/ (Caltrate 600 Plus), 1 TAB PO DAILY Cholecalciferol (Vitamin D 1000 Unit), 1,000 INTER.UNIT PO DAILY Docusate Sodium (Docusate Sodium), 100 MG PO BID Enteral Nutrition Formula (Ensure Plus Vanilla), 1 CAN PO DAILY Levetiracetam (Keppra), 500 MG PO BID Levothyroxine Sodium (Synthroid), 88 MCG PO DAILY Simvastatin (Zocor), 10 MG PO QPM Scheduled PRN Lorazepam (Ativan), 0.5 MG PO DAILY PRN for Anxiety Physical Exam Vital Signs Date Time Temp Pulse Resp B/P Pulse Ox O2 Delivery O2 Flow Rate FiO2 11/14/16 15:22 71 18 158/61 96 Room Air 11/14/16 14:03 75 18 171/96 97 Room Air 11/14/16 12:42 36.5 81 18 165/79 96 Room Air General Appearance: WD/WN, no apparent distress Head: normocephalic, atraumatic Respiratory/Chest: normal breath sounds, no respiratory distress Cardiovascular: regular rate, rhythm, no edema Abdomen/GI: non tender, soft Extremities/Musculoskelatal: no calf tenderness, no pedal edema Neurologic/Psych: alert, + pertinent finding (answers questions clearly, no speech issues, perserverates on topics not being mentioned) Skin: normal color, warm/dry Diagnostics Laboratory Results Results Past 24 Hours Test 11/14/16 13:25 11/14/16 13:30 11/14/16 13:32 Range/Units White Blood Count 3.48 4.8-10.8 K/uL Red Blood Count 4.18 4.2-5.4 M/uL Hemoglobin 14.2 12.0-16.0 g/dL Hematocrit 40.2 37-47 % Mean Corpuscular Volume 96.2 80-100 fL Mean Corpuscular Hemoglobin 34.0 25-34 pg Mean Corpuscular Hemoglobin Concent 35.3 32-36 g/dl Platelet Count 121 130-400 K/uL Mean Platelet Volume 8.5 7.4-10.4 fL Neutrophils (%) (Auto) 62.9 % Lymphocytes (%) (Auto) 23.3 % Monocytes (%) (Auto) 11.8 % Eosinophils (%) (Auto) 1.1 % Basophils (%) (Auto) 0.3 % Neutrophils # (Auto) 2.19 1.4-6.5 K/uL Lymphocytes # (Auto) 0.81 1.2-3.4 K/uL Monocytes # (Auto) 0.41 0.11-0.59 K/uL Eosinophils # (Auto) 0.04 0-0.5 K/uL Basophils # (Auto) 0.01 0-0.2 K/uL RDW Standard Deviation 51.1 36.4-46.3 fL RDW Coefficient of Variation 14.4 11.5-14.5 % Immature Granulocyte % (Auto) 0.6 % Immature Granulocyte # (Auto) 0.02 0.00-0.02 K/uL Prothrombin Time 10.7 9.0-12.0 SECONDS Prothromb Time International Ratio 1.0 0.9-1.1 Activated Partial Thromboplast Time 24.6 21.0-31.0 SECONDS Partial Thromboplastin Ratio 0.9 Sodium Level 141 136-145 mmol/L Potassium Level 4.0 3.5-5.1 mmol/L Chloride Level 106 98-107 mmol/L Carbon Dioxide Level 27 21-32 mmol/L Anion Gap 8.0 3-11 mmol/L Blood Urea Nitrogen 11 7-18 mg/dl Creatinine 0.65 0.60-1.20 mg/dl Est Creatinine Clear Calc Drug Dose 44.1 ml/min Estimated GFR () 96.5 Estimated GFR (Non- 83.3 BUN/Creatinine Ratio 16.3 10-20 Random Glucose 87 70-99 mg/dl Calcium Level 8.8 8.5-10.1 mg/dl Magnesium Level 2.7 1.8-2.4 mg/dl Total Bilirubin 0.6 0.2-1 mg/dl Direct Bilirubin 0.1 0-0.2 mg/dl Aspartate Amino Transf (AST/SGOT) 11 15-37 U/L Alanine Aminotransferase (ALT/SGPT) 22 12-78 U/L Alkaline Phosphatase 52 45-117 U/L Total Protein 6.7 6.4-8.2 gm/dl Albumin 3.9 3.4-5.0 gm/dl Urine Color YELLOW Urine Appearance CLEAR CLEAR Urine pH 7.0 4.5-7.5 Urine Specific Price 1.013 1.000-1.030 Urine Protein NEG NEG Urine Glucose (UA) NEG NEG Urine Ketones NEG NEG Urine Occult Blood NEG NEG Urine Nitrite NEG NEG Urine Bilirubin NEG NEG Urine Urobilinogen NEG NEG Urine Leukocyte Esterase NEG NEG Bedside Troponin I 0.000 0-0.045 ng/ml Diagnostic Radiology CT head neg for acute CXR neg for acute Impression Assessment and Plan 80 y/o F who was admitted on 11/14 for progressive dementia Progressive dementia: Likely age related, Alzheimer's dementia CT head neg for acute WBC WNL, UA neg, PRP WNL CXR neg for acute Was taking ativan at home, this should be avoided in dementia pts Haldol was effective at times, give PRN Start seroquel tonight and monitor Possibly related to B12 deficiency B12 deficiency: Noted on labs in 06/2016, no hx of supplementation with level of 247 at that time MCV is borderline elevated Will recheck Start injections QD x5, then 1x/week, then monthly May be partially responsible for progressive dementia Glioblastoma: stable Follows with Dr. Gautam if needed Hypothyroid: TSH Pending Continue home dose Seizure disorder: stable, continue home meds Other: Lengthy discussion with family about code status. Pt to be DNR/DNI. I did fill out POLST form with family. They are also requesting POA and living will forms. Pt is at baseline ambulation, will avoid rx DVT proph to avoid GIB Reg diet PT/OT pending Dispo to SNF when able, CM c/s Level of Care Med/Surg Resuscitation Status DO NOT RESUSCITATE
[2016-11-14] MEDS ORDERED: CYANOCOBALAMIN 1000 MCG/ML VIAL IM ONE (16:21)
[2016-11-14] MEDS ORDERED: HALOPERIDOL 1 MG/0.5 ML UDP PO PRN ×2 (16:30→18:15)
[2016-11-14] MEDS ORDERED: MAGNESIUM HYDROXIDE SUSP 30 ML UDC PO PRN (16:30)
[2016-11-14] MEDS ORDERED: ONDANSETRON INJ 2 MG/ML 2 ML VIAL IV PRN (16:30)
[2016-11-14 18:01] VITALS: BP 168/80; PULSE 80; O2SAT 95; BMI 14.7
[2016-11-14] MEDS: SIMVASTATIN 10 MG TAB PO SCH (20:24)
[2016-11-14] MEDS: QUETIAPINE FUMARATE 25 MG TAB PO SCH (20:24)
[2016-11-14] MEDS: DOCUSATE SODIUM 100 MG CAP PO SCH (20:25)
[2016-11-14] MEDS: LEVETIRACETAM 500 MG TAB PO SCH (20:26)
[2016-11-15 02:20] VITALS: BP 147/81; PULSE 85; TEMP 36.4; O2SAT 96
[2016-11-15 05:50] VITALS: BMI 14.2
[2016-11-15 07:26] VITALS: BP 162/76; PULSE 72; TEMP 36.6; O2SAT 99
[2016-11-15] MEDS: CHOLECALCIFEROL 1000 INTER.UNIT TAB PO SCH (07:46)
[2016-11-15] MEDS: DOCUSATE SODIUM 100 MG CAP PO SCH ×2 (07:47→19:55)
[2016-11-15] MEDS: LEVETIRACETAM 500 MG TAB PO SCH ×2 (07:47→19:56)
[2016-11-15] MEDS: LEVOTHYROXINE 88 MCG TAB PO SCH (07:47)
[2016-11-15] MEDS: CALCIUM 600MG + VIT D 400 IU TAB PO SCH (07:48)
[2016-11-15] MEDS: CYANOCOBALAMIN 1000 MCG/ML VIAL IM SCH ×2 (07:50→07:58)
[2016-11-15] MEDS ORDERED: IMPACT LIQ 1000 ML BAG PO SCH (08:00)
[2016-11-15] MEDS: ACETAMINOPHEN 325 MG TAB PO PRN (08:01)
--- NOTE | 2016-11-15 09:25 | Hospitalist Progress Note ---
Hospitalist Progress Note Date of Service November 15, 2016. (Trace Lora, THEO) Subjective Pt evaluation today including: conversation w/ patient, physical exam, chart review, lab review, review of studies, review of inpatient medication list Pain: denies any pain PO Intake: poor PO intake this am Voiding: no voiding problems patient alert and oriented to person, place. Knows year is 2017 and knew Matteo was president Constitutional: No see HPI, No fever, No chills, No sweats, No weight loss, No weakness, No fatigue, No problem reported ENT: No see HPI, No hearing loss, No unusual epistaxis, No nasal symptoms, No sore throat, No tinnitus, No dental problems, No trouble swallowing, No problem reported Respiratory: No see HPI, No cough, No sputum, No wheezing, No shortness of breath, No dyspnea on exertion, No dyspnea at rest, No hemoptysis, No problem reported Cardiovascular: No see HPI, No chest pain, No orthopnea, No PND, No edema, No claudication, No palpitations, No problem reported Abdomen: No see HPI, No pain, No nausea, No vomiting, No diarrhea, No constipation, No GI bleeding, No problem reported Musculoskeletal: No see HPI, No joint pain, No muscle pain, No swelling, No calf pain, No problem reported Neurologic: No see HPI, No memory loss, No paralysis, No weakness, No numbness/tingling, No vertigo, No balance problems, No problem reported Skin: No see HPI, No rash, No itch, No new/changing skin lesions, No color change, No bleeding, No problem reported (Trace Lora, THEO) Medications reviewed (Trace Lora, THEO) Objective Vital Signs Date Time Temp Pulse Resp B/P Pulse Ox O2 Delivery O2 Flow Rate FiO2 11/15/16 07:26 36.6 72 20 162/76 99 Room Air 11/15/16 02:20 36.4 85 20 147/81 96 Room Air 11/14/16 23:59 Room Air 11/14/16 18:01 80 18 168/80 95 Room Air 11/14/16 17:18 78 18 160/ 98 Room Air 11/14/16 15:22 71 18 158/61 96 Room Air 11/14/16 14:03 75 18 171/96 97 Room Air 11/14/16 12:42 36.5 81 18 165/79 96 Room Air (Trace Lora, [employer]) Physical Exam General Appearance: no apparent distress Eyes: normal inspection ENT: hearing grossly normal, pharynx normal Neck: supple, no JVD Respiratory/Chest: chest non-tender, lungs clear, normal breath sounds, no respiratory distress, no accessory muscle use Cardiovascular: regular rate, rhythm, no edema, no gallop, no JVD, no murmur Abdomen: normal bowel sounds, non tender, soft Extremities: normal range of motion, normal inspection, no pedal edema Neurologic/Psychiatric: alert, + disoriented (alert and oriented x 2) Skin: normal color (Trace Lora, THEO) Laboratory Results Last 24 Hours Test 11/14/16 13:25 11/14/16 13:30 11/14/16 13:32 11/14/16 13:34 White Blood Count 3.48 K/uL Red Blood Count 4.18 M/uL Hemoglobin 14.2 g/dL Hematocrit 40.2 % Mean Corpuscular Volume 96.2 fL Mean Corpuscular Hemoglobin 34.0 pg Mean Corpuscular Hemoglobin Concent 35.3 g/dl Platelet Count 121 K/uL Mean Platelet Volume 8.5 fL Neutrophils (%) (Auto) 62.9 % Lymphocytes (%) (Auto) 23.3 % Monocytes (%) (Auto) 11.8 % Eosinophils (%) (Auto) 1.1 % Basophils (%) (Auto) 0.3 % Neutrophils # (Auto) 2.19 K/uL Lymphocytes # (Auto) 0.81 K/uL Monocytes # (Auto) 0.41 K/uL Eosinophils # (Auto) 0.04 K/uL Basophils # (Auto) 0.01 K/uL RDW Standard Deviation 51.1 fL RDW Coefficient of Variation 14.4 % Immature Granulocyte % (Auto) 0.6 % Immature Granulocyte # (Auto) 0.02 K/uL Prothrombin Time 10.7 SECONDS Prothromb Time International Ratio 1.0 Activated Partial Thromboplast Time 24.6 SECONDS Partial Thromboplastin Ratio 0.9 Sodium Level 141 mmol/L Potassium Level 4.0 mmol/L Chloride Level 106 mmol/L Carbon Dioxide Level 27 mmol/L Anion Gap 8.0 mmol/L Blood Urea Nitrogen 11 mg/dl Creatinine 0.65 mg/dl Est Creatinine Clear Calc Drug Dose 44.1 ml/min Estimated GFR () 96.5 Estimated GFR (Non- 83.3 BUN/Creatinine Ratio 16.3 Random Glucose 87 mg/dl Calcium Level 8.8 mg/dl Magnesium Level 2.7 mg/dl Total Bilirubin 0.6 mg/dl Direct Bilirubin 0.1 mg/dl Aspartate Amino Transf (AST/SGOT) 11 U/L Alanine Aminotransferase (ALT/SGPT) 22 U/L Alkaline Phosphatase 52 U/L Total Protein 6.7 gm/dl Albumin 3.9 gm/dl Urine Color YELLOW Urine Appearance CLEAR Urine pH 7.0 Urine Specific [place] 1.013 Urine Protein NEG Urine Glucose (UA) NEG Urine Ketones NEG Urine Occult Blood NEG Urine Nitrite NEG Urine Bilirubin NEG Urine Urobilinogen NEG Urine Leukocyte Esterase NEG Bedside Troponin I 0.000 ng/ml Thyroid Stimulating Hormone (TSH) 4.830 uIu/ml (Trace Lora ., THEO) Assessment and Plan 80 y/o F who was admitted on 11/14 for progressive dementia - has moments of aggression at home 1. Progressive dementia: Likely age related, Alzheimer's dementia - does not appear to be Delerium - one to one sitter - sleep over night - pulled IV out -CT head neg for acute process -WBC WNL, UA neg, PRP WNL -CXR no acute process -Lorazepam was stopped. -Haldol was effective at times, give PRN -Started seroquel last night - slept well -Possibly related to B12 deficiency - started repletion 2. B12 deficiency: Noted on labs in 06/2016, no hx of supplementation with level of 247 at that time -Repletion started Started with injection QD x5, then 1x/week, then monthly 3. Glioblastoma: stable -Follows with Dr. Gautam if needed 4. Hypothyroid: TSH 4.8 -Continue home dose 5. Seizure disorder: stable -continue home meds 6. DNROther: POLST comleted. Family also requesting POA and living will forms. 7. DVT prophylaxis. -Pt is at baseline ambulation, will avoid rx DVT proph to avoid GIB 8. Weakness - PT/OT eval pending 9. Disposition - will likely need SNF Continued [facility] stay due to: other (pt/ot weakness confusion) Discharge planning: alf facility (Trace Lora CRNP) History Chart reviewed and I agree with the plan (Xochilt Ramos MD)
[2016-11-15 11:10] VITALS: BP 159/89; PULSE 74; TEMP 36.6; O2SAT 97
[2016-11-15 15:28] VITALS: BP 146/81; PULSE 82; TEMP 36.5; O2SAT 97
[2016-11-15 16:39] VITALS: BMI 15.1
[2016-11-15] MEDS: BOOST PLUS VANILLA PO SCH ×2 (17:37)
[2016-11-15 19:33] VITALS: BP 129/77; PULSE 92; TEMP 36.4; O2SAT 98
[2016-11-15] MEDS: SIMVASTATIN 10 MG TAB PO SCH (19:55)
[2016-11-15] MEDS: QUETIAPINE FUMARATE 25 MG TAB PO SCH (19:56)
[2016-11-16] VITALS: O2SAT 98
[2016-11-16 06:36] VITALS: BMI 14.8
[2016-11-16 09:51] VITALS: BP 139/78; PULSE 80; TEMP 36.7; O2SAT 99
[2016-11-16] MEDS: CYANOCOBALAMIN 1000 MCG/ML VIAL IM SCH (11:06)
[2016-11-16] MEDS: DOCUSATE SODIUM 100 MG CAP PO SCH ×3 (11:13→19:55)
[2016-11-16] MEDS: LEVOTHYROXINE 88 MCG TAB PO SCH ×2 (11:13→17:12)
[2016-11-16] MEDS: CALCIUM 600MG + VIT D 400 IU TAB PO SCH ×2 (11:13→17:12)
[2016-11-16] MEDS: LEVETIRACETAM 500 MG TAB PO SCH ×3 (11:13→19:56)
[2016-11-16] MEDS: CHOLECALCIFEROL 1000 INTER.UNIT TAB PO SCH ×2 (11:13→17:12)
[2016-11-16 14:17] VITALS: BP 160/88; PULSE 85; TEMP 37; O2SAT 97
--- NOTE | 2016-11-16 16:07 | Hospitalist Progress Note ---
Hospitalist Progress Note Date of Service November 16, 2016. (Trace Lora CRNP) Subjective Pt evaluation today including: conversation w/ patient, physical exam, lab review, review of inpatient medication list Pain: denies any pain PO Intake: eating well according to aid in room Voiding: no voiding problems with one to one sitter. denies any chest pain, shortness of breath, nausea, vomiting or abdominal pain. Respiratory: No see HPI, No cough, No sputum, No wheezing, No shortness of breath, No dyspnea on exertion, No dyspnea at rest, No hemoptysis, No problem reported Cardiovascular: No see HPI, No chest pain, No orthopnea, No PND, No edema, No claudication, No palpitations, No problem reported Abdomen: No see HPI, No pain, No nausea, No vomiting, No diarrhea, No constipation, No GI bleeding, No problem reported Musculoskeletal: No see HPI, No joint pain, No muscle pain, No swelling, No calf pain, No problem reported (Trace Lora CRNP) Medications reviewed (Trace Lora CRNP) Objective Vital Signs Date Time Temp Pulse Resp B/P Pulse Ox O2 Delivery O2 Flow Rate FiO2 11/16/16 14:17 37.0 85 20 160/88 97 11/16/16 10:00 Room Air 11/16/16 09:51 36.7 80 20 139/78 99 11/16/16 00:00 98 Room Air 11/15/16 20:00 Room Air 11/15/16 19:33 36.4 92 16 129/77 98 Room Air (Trace Lora CRNP) Physical Exam General Appearance: no apparent distress Eyes: sclerae normal ENT: hearing grossly normal, pharynx normal Neck: supple, no JVD Respiratory/Chest: lungs clear Cardiovascular: regular rate, rhythm, no edema, no murmur Abdomen: normal bowel sounds, non tender, soft Extremities: normal range of motion, normal inspection Neurologic/Psychiatric: alert, normal mood/affect, + disoriented (person only) Skin: normal color, warm/dry, no rash (Trace Lora CRNP) Assessment and Plan 80 y/o F who was admitted on 11/14 for progressive dementia - has moments of aggression at home 1. Progressive dementia: Likely age related, Alzheimer's dementia - does not appear to be Delerium - one to one sitter - slept over night - pulled IV out -CT head neg for acute process -WBC WNL, UA neg, PRP WNL -CXR no acute process -Lorazepam was stopped. -Haldol was effective at times at home, will continue PRN -Started seroquel - seems to be tolerating well - slept well last night -Possibly related to B12 deficiency - started repletion 2. B12 deficiency: Noted on labs in 06/2016, no hx of supplementation with level of 247 at that time -Repletion started with injection QD x5, then 1x/week, then monthly 3. Glioblastoma: stable -Follows with Dr. Gautam if needed 4. Hypothyroid: TSH 4.8 -Continue home dose 5. Seizure disorder: stable -continue home meds 6. Code Status - DNR - POLST completed. Family also requesting POA and living will forms. 7. DVT prophylaxis. -Pt is at baseline ambulation, will avoid rx DVT proph to avoid GIB 8. Weakness - PT/OT 9. Disposition - SNF - case management working on possible [facility] placement, Thursday at earliest. Continued [facility] stay due to: other Discharge planning: detention facility (Trace Lora CRNP) History Chart reviewed and I agree with plan (Xochilt Ramos MD)
[2016-11-16] MEDS: BOOST PLUS VANILLA PO SCH ×2 (17:11)
[2016-11-16] MEDS: QUETIAPINE FUMARATE 25 MG TAB PO SCH (19:56)
[2016-11-16] MEDS: SIMVASTATIN 10 MG TAB PO SCH (19:56)
[2016-11-16] MEDS: ACETAMINOPHEN 325 MG TAB PO PRN (21:32)
[2016-11-17 01:01] VITALS: BP 118/80; PULSE 89; TEMP 37.1; O2SAT 97
[2016-11-17] MEDS: LEVOTHYROXINE 88 MCG TAB PO SCH (06:21)
[2016-11-17] MEDS: ACETAMINOPHEN 325 MG TAB PO PRN (06:22)
[2016-11-17 06:41] VITALS: BMI 14.9
[2016-11-17 06:49] VITALS: BP 154/85; PULSE 72; TEMP 36.6; O2SAT 96
[2016-11-17] MEDS: CYANOCOBALAMIN 1000 MCG/ML VIAL IM SCH (10:34)
[2016-11-17] MEDS: CHOLECALCIFEROL 1000 INTER.UNIT TAB PO SCH (10:39)
[2016-11-17] MEDS: LEVETIRACETAM 500 MG TAB PO SCH ×2 (10:39→20:33)
[2016-11-17] MEDS: CALCIUM 600MG + VIT D 400 IU TAB PO SCH (10:39)
[2016-11-17] MEDS: DOCUSATE SODIUM 100 MG CAP PO SCH ×2 (10:39→20:32)
[2016-11-17] MEDS: BOOST PLUS VANILLA PO SCH ×2 (17:02)
--- NOTE | 2016-11-17 17:26 | Progress Note ---
Subjective Date of Service: November 17, 2016. Subjective Pt evaluation today including: physical exam, chart review, lab review, review of inpatient medication list Problem List Medical Problems: (1) Aggressive behavior Status: Acute (2) Altered mental status Status: Acute (3) Altered mental status Status: Acute (4) Back muscle spasm Status: Acute (5) Brain mass Status: Acute (6) Confusion Status: Acute (7) Dehydration Status: Acute (8) Diarrhea Status: Acute (9) Failure to thrive Status: Acute (10) GBM (glioblastoma multiforme) Status: Acute (11) Generalized weakness Status: Acute (12) Humerus fracture Status: Acute (13) Hypophosphatemia Status: Acute (14) Leukopenia Status: Acute (15) Nausea Status: Acute (16) Near syncope Status: Acute (17) Thrombocytopenia Status: Acute (18) UTI (urinary tract infection) Status: Acute (19) Vasogenic brain edema Status: Acute Review of Systems no meaningful HPI or ROS obtainable Objective Vital Signs Date Time Temp Pulse Resp B/P Pulse Ox O2 Delivery O2 Flow Rate FiO2 11/17/16 16:00 Room Air 11/17/16 09:00 Room Air 11/17/16 06:49 36.6 72 16 154/85 96 Room Air 11/17/16 01:01 37.1 89 18 118/80 97 Room Air 11/16/16 23:59 Room Air 11/16/16 20:00 Room Air Physical Exam General Appearance: no apparent distress Neck: trachea midline Respiratory/Chest: no respiratory distress, no accessory muscle use Neurologic/Psychiatric: veterinary anatomist II-XII nml as tested (no focal deficits noted) Skin: normal color Assessment and Plan 1. Progressive dementia: Likely age related, Alzheimer's dementia and progressive -CT head neg for acute process -WBC WNL, UA neg, PRP WNL -CXR no acute process -Lorazepam was stopped. -Haldol was effective at times at home, will continue PRN for severe agitation -Started seroquel - seems to be tolerating well - continue for now -Possibly related to B12 deficiency at least in part, although doubt it is a major part of the picture- started repletion 2. B12 deficiency: prior hospitalist noted on labs in 06/2016, no hx of supplementation with level of 247 at that time -Repletion started with injection QD x5, then 1x/week x4, then monthly thereafter, repeat level ~12wks 3. Glioblastoma: stable -Follows with Dr. Gautam if needed 4. Hypothyroid: TSH 4.8 -Continue home dose 5. Seizure disorder: stable -continue home meds 6. Code Status - DNR - POLST completed. Family also requesting POA and living will forms. 7. DVT prophylaxis. -lovenox 8. Weakness - PT/OT 9. Disposition - SNF - case management working on possible [facility] placement, Thursday at earliest Discharge planning: half-way facility
[2016-11-17] MEDS: SIMVASTATIN 10 MG TAB PO SCH (20:32)
[2016-11-17] MEDS: QUETIAPINE FUMARATE 25 MG TAB PO SCH (20:32)
[2016-11-18] MEDS ORDERED: HALOPERIDOL LACTATE 5 MG/ML 1 ML VIAL IM STA (02:27)
[2016-11-18] MEDS: LEVOTHYROXINE 88 MCG TAB PO SCH (05:18)
[2016-11-18 06:58] VITALS: Ht 162.6 cm; Wt 39.1 kg
[2016-11-18 08:43] VITALS: BP 145/82; PULSE 78; TEMP 36.3; O2SAT 97
[2016-11-18] MEDS: DOCUSATE SODIUM 100 MG CAP PO SCH (09:00)
[2016-11-18] MEDS: LEVETIRACETAM 500 MG TAB PO SCH (09:00)
[2016-11-18] MEDS ORDERED: ENOXAPARIN 40 MG/0.4 ML SYR SQ SCH (09:00)
[2016-11-18] MEDS: CHOLECALCIFEROL 1000 INTER.UNIT TAB PO SCH (09:00)
[2016-11-18] MEDS: CALCIUM 600MG + VIT D 400 IU TAB PO SCH (09:00)
[2016-11-18] MEDS ORDERED: SRQ25 PO (09:52)
[2016-11-18] MEDS ORDERED: VTMB12 PO (09:52)
--- NOTE | 2016-11-18 10:01 | Discharge Instructions ---
Discharge Instructions Date of Service November 18, 2016. Admission Reason for Admission: Altered Mental Status Discharge Discharge Diagnosis / Problem: progressive dementia Discharge Goals Goal(s): Therapeutic intervention, Specific goals (safety) Activity Recommendations Activity Level: Assistance Required . Additional Information Patient informed of condition: Yes (due to dementia unable to comprehend) Advance Directives: Yes DNR: Yes Level of Care: Skilled Communicable Disease: No Prognosis: Deteriorating (due to dementia) Instructions / Follow-Up Instructions / Follow-Up a) dementia - supportive care. currently started seroquel HS @ 25mg - seems to be tolerating well although somewhat sleepy still during the day -- if this continues would consider dose reduction; separately did have haldol prn severe agitation x 2 total doses during hospital stay; can be re-initiated as a prn for severe agitation if needed at facility. dementia likely multifactorial between glioblastoma/resection, alzheimers, and possibly some effects from B12 deficiency b) B12 deficiency - levels @ 247 - IM replacement was ordered (daily x 5, weekly x 4, then monthly) but patient has not allowed IM administration - hence change to PO dosing - would repeat B12 level in 3 months, and if she were to allow, would retry IM dosing c) hypothyroidism - TSH 4.8 - repeat TSH ~6wks see medical discharge summary for further details Current Hospital Diet Patient's current hospital diet: Regular Diet Discharge Diet Recommended Diet: Regular Diet Pending Studies Studies pending at discharge: no Medical Emergencies . Who to Call and When: Medical Emergencies: If at any time you feel your situation is an emergency, please call 911 immediately. . Non-Emergent Contact Non-Emergency issues call your: Primary Care Provider . . "Provider Documentation" section prepared by Rashard Monroy. . Core Measure Problem Core Measures: None
--- NOTE | 2016-11-18 10:23 | Discharge Summary ---
Discharge Summary Date of Service November 18, 2016. Discharge Summary Admission Date: November 14, 2016 at 16:20 Discharge Date: November 18, 2016 Discharge Disposition: [facility] facility Principal Diagnosis: progressive dementia Immunizations: Have You Had Influenza Vaccine: No History of Tetanus Vaccine?: Yes History of Pneumococcal: No History of Hepatitis B Vaccine: No Procedures: Last Resulted CBC 11/14/16 13:25 Red Blood Count 4.18, Mean Corpuscular Volume 96.2, Mean Corpuscular Hemoglobin 34.0, Mean Corpuscular Hemoglobin Concent 35.3, Mean Platelet Volume 8.5, Neutrophils (%) (Auto) 62.9, Lymphocytes (%) (Auto) 23.3, Monocytes (%) (Auto) 11.8, Eosinophils (%) (Auto) 1.1, Basophils (%) (Auto) 0.3, Neutrophils # (Auto ) 2.19, Lymphocytes # (Auto) 0.81, Monocytes # (Auto) 0.41, Eosinophils # (Auto ) 0.04, Basophils # (Auto) 0.01 Last Resulted BMP 11/14/16 13:25 Item Value Date Time Levetiracetam (Keppra) Level 28.5 mcg/mL 07/09/16 1450 Item Value Date Time Vitamin B12 Level 247 pg/mL 07/03/16 1042 Thyroid Stimulating Hormone (TSH) 4.830 uIu/ml H 11/14/[address] SCAN OF THE BRAIN WITHOUT IV CONTRAST CLINICAL HISTORY: Change in mental status. Dementia. COMPARISON STUDY: CT of the brain dated 10/01/2016. TECHNIQUE: Unenhanced axial CT scan of the brain is performed from the vertex to the skull base. CT DOSE: 638.56 mGycm FINDINGS: Brain parenchyma: Right temporal encephalomalacia is unchanged and consistent with previous tumor resection. Dural thickening deep to the craniotomy site is likely on a postoperative basis. There are age-related involutional changes noting moderate subcortical and periventricular microangiopathic change. There is no hemorrhage, mass effect, or evidence of acute territorial ischemia by CT criteria. Nguyen-white matter is preserved. No extra-axial fluid collection is seen. Ventricles, sulci, cisterns: Prominent secondary to involutional change. Intracranial vasculature: There is atherosclerotic calcification of the cavernous carotid and vertebral arteries. Calvarium: There are changes from right temporal craniotomy. No destructive calvarial lesion is seen. Sinuses and mastoids: Mild mucosal thickening is seen within the sphenoid sinuses. The remaining paranasal sinuses are clear. The mastoid air cells are well pneumatized. Orbits: The bony orbits are grossly intact. IMPRESSION: 1. There is no hemorrhage, mass effect, or evidence of acute territorial ischemia by CT criteria. 2. Chronic and postoperative changes as above. These are similar appearance to the 10/01/2016 examination. Electronically signed by: Govind Schaefer M.D. 11/14/2016 2:31 PM Dictated Date/Time: 11/14/2016 2:24 PM SINGLE VIEW CHEST CLINICAL HISTORY: Change in mental status. Dementia. FINDINGS: An AP, portable, upright chest radiograph is compared to study dated 10/01/2016 and correlated with chest CT dated 11/08/2015. The cardiomediastinal silhouette is unremarkable. There is atherosclerotic calcification of the thoracic aorta. Mild emphysematous change and chronic interstitial thickening are similar to previous. There are scattered calcified granulomas. No airspace consolidation or pleural effusion is seen. No pneumothorax is identified. The skeletal structures are osteopenic. Arthritic changes present in the shoulders. Postoperative change is noted in the distal right humerus. IMPRESSION: Emphysematous change with no acute cardiopulmonary abnormality. Electronically signed by: Govind Schaefer M.D. 11/14/2016 2:11 PM Dictated Date/Time: 11/14/2016 2:08 PM Last Resulted CBC 11/14/16 13:25 Red Blood Count 4.18, Mean Corpuscular Volume 96.2, Mean Corpuscular Hemoglobin 34.0, Mean Corpuscular Hemoglobin Concent 35.3, Mean Platelet Volume 8.5, Neutrophils (%) (Auto) 62.9, Lymphocytes (%) (Auto) 23.3, Monocytes (%) (Auto) 11.8, Eosinophils (%) (Auto) 1.1, Basophils (%) (Auto) 0.3, Neutrophils # (Auto ) 2.19, Lymphocytes # (Auto) 0.81, Monocytes # (Auto) 0.41, Eosinophils # (Auto ) 0.04, Basophils # (Auto) 0.01 Last Resulted BMP 11/14/16 13:25 Medication Reconciliation New Medications: Cyanocobalamin (Vitamin B-12) 500 Mcg Tab 1000 MCG PO DAILY, #30 TAB Quetiapine Fumarate (Quetiapine Fumarate) 25 Mg Tab 25 MG PO HS, #30 TAB Continued Medications: Calcium Carbonate-Vitamin D W/ (Caltrate 600 Plus) 1 Tab Tab 1 TAB PO DAILY, TAB Cholecalciferol (Vitamin D 1000 Unit) 1,000 Unit Cap 1000 INTER.UNIT PO DAILY, CAP Docusate Sodium (Docusate Sodium) 100 Mg Cap 100 MG PO BID for 7 Days, #14 CAP Enteral Nutrition Formula (Ensure Plus Vanilla) 1 Can Liqd 1 CAN PO DAILY for 30 Days, #30 EA Levetiracetam (Keppra) 500 Mg Tab 500 MG PO BID, TAB Levothyroxine Sodium (Synthroid) 88 Mcg Tab 88 MCG PO DAILY, TAB Lorazepam (Ativan) 0.5 Mg Tab 0.5 MG PO DAILY PRN for Anxiety, TAB Simvastatin (Zocor) 10 Mg Tab 10 MG PO QPM, 0 Refills Discharge Exam Physical Exam: General Appearance: no apparent distress Respiratory/Chest: no respiratory distress, no accessory muscle use Skin: normal color Hospital Course 1. 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 -Started seroquel - seems to be tolerating well - continue for now - follow for daytime sleepiness however, and consider reducing dose if this continues -had a few prn haldol doses while inpatient - can consider resuming prn severe agitation if needed -Possibly related to B12 deficiency at least in part, although doubt it is a major part of the picture- ordered IM repletion but she's not been allowing administration of this, so at discharge for now have changed to 1000mcg po daily - repeat level in ~12wks to ensure improvement -- if she would allow for IM administration would change to this again, however 2. B12 deficiency: see above, repeat B12 level 12wks 3. Glioblastoma: stable -Follows with Dr. Gautam if needed 4. Hypothyroid: TSH 4.8 -Continue home dose, repeat TSH ~6wks 5. Seizure disorder: stable -continue home meds, repeat levels in december (sooner prn) 6. Code Status - DNR - POLST completed. Family also requesting POA and living will forms. for dispo to SNF today 7. DVT prophylaxis. -lovenox utilized during her stay 8. Weakness - PT/OT consults Total Time Spent: Less than 30 minutes This includes examination of the patient, discharge planning, medication reconciliation, and communication with other providers. Discharge Instructions Please refer to the electronic Patient Visit Report (Discharge Instructions) for additional information. Additional Copies To Ely Garcia; Valentin Mac M.D.
[2016-11-18 13:03] VITALS: O2SAT 97
[2016-11-18 13:19] VITALS: BP 145/82; PULSE 78; TEMP 36.3; O2SAT 97
== END 2016-11-18 13:49 | DRG 57 ==
LOC: ENRESERVTM → ENRESERVDT → C.EDB 12:31 → C.4E 16:20 → C.MS2W 11-17 10:47
PROVIDERS: ADMIT Family Medicine; ATTEND Family Medicine
DX: G30.9 Alzheimer's disease, unspecified (principal); F02.81 Dementia in other diseases classified elsewhere, unspecified severity, with behavioral disturbance; E03.9 Hypothyroidism, unspecified; Z66 Do not resuscitate; D64.9 Anemia, unspecified; E78.00 Pure hypercholesterolemia, unspecified; M19.90 Unspecified osteoarthritis, unspecified site; M81.0 Age-related osteoporosis without current pathological fracture; E53.8 Deficiency of other specified B group vitamins; R53.1 Weakness; G40.909 Epilepsy, unspecified, not intractable, without status epilepticus; Z86.711 Personal history of pulmonary embolism; Z85.841 Personal history of malignant neoplasm of brain; Z79.899 Other long term (current) drug therapy

== ENCOUNTER → 2016-12-19 | Outpatient (CLI) | payer OTHER, BC ==
[~2016-12-19] MED LIST changes: -AZIT-57 PO; -ENOX80IN SQ; -GFNSR600 PO; -LEVO100T7 PO; +LEVO88TA PO; -NF656 EXT; -SENN-65 PO; +SRQ25 PO; -VNTHFA/IN INH; +VTMB12 PO
[2016-12-19 09:20] LABS: BASO % 0.5 %; BASO ABS # 0.02 K/uL (0-0.2); COMPLETE YES; EOS % 1.8 %; HEMATOCRIT 38.5 % (37-47); IG% 0.8 %; LYMPH % 24.6 %; LYMPH ABS # 0.97 K/uL (1.2-3.4); MEAN CELL VOLUME 97.7 fL (80-100); MEAN CORPUSCULAR HEMOGLOBIN 33.8 pg (25-34); MEAN CORPUSCULAR HGB CONC 34.5 g/dl (32-36); MEAN PLATELET VOLUME 9.2 fL (7.4-10.4); MONO % 11.2 %; NEUT % 61.1 %; PLATELET COUNT 134 K/uL (130-400); RED BLOOD COUNT 3.94 M/uL (4.2-5.4); WHITE BLOOD COUNT 3.94 K/uL (4.8-10.8)
[2016-12-19 09:39] LABS: ALT/SGPT 16 U/L (12-78); AST/SGOT 10 U/L (15-37); BLOOD UREA NITROGEN 17 mg/dl (7-18); BUN/CREATININE RATIO 20.5 (10-20); CALCIUM 9.5 mg/dl (8.5-10.1); CARBON DIOXIDE 29 mmol/L (21-32); CHLORIDE 104 mmol/L (98-107); CREATININE 0.83 mg/dl (0.60-1.20); GLUCOSE 88 mg/dl (70-99); POTASSIUM 3.8 mmol/L (3.5-5.1); SODIUM 141 mmol/L (136-145)
[2016-12-19 09:48] LABS: ALB/GLOB RATIO 1.3 (0.9-2); ALKALINE PHOSPHATASE 47 U/L (45-117)
== END | disposition home or self-care (01) ==
LOC: C.LABUPHEI 08:40
PROVIDERS: ATTEND Family Medicine
DX: E03.9 Hypothyroidism, unspecified (principal); D64.9 Anemia, unspecified; G40.89 Other seizures

== ENCOUNTER → 2016-12-22 | Outpatient (CLI) | payer OTHER, BC ==
--- NOTE | 2016-12-25 16:24 | CODING QUERY NO DIAGNOSIS ---
TREATMENT RENDERED WITHOUT A DIAGNOSIS To promote full compliance with coding requirements relating to patient care, physician participation is requested in all cases of accountant cost uncertainty. Please assist us with providing a diagnosis/symptom for the test(s) below: A diagnosis/symptom was not documented on your Order. A valid diagnosis/symptom is required to bill all insurances. Please remember that we are unable to code a diagnosis of rule out, probable, possible, questionable, or suspected. DATE OF SERVICE: 12/22/16 Tests that require a diagnosis: * VITAMIN B12 DIAGNOSIS: * VITAMIN D 25 HYDROXY DIAGNOSIS: Provider Signature: Date: Thank you Joanna Greer [facility] Information Management Once completed, please kindly fax back to [phone] For questions please call [phone]
== END ==
LOC: C.LABUPHEI 09:04
PROVIDERS: ATTEND Family Medicine
DX: D64.9 Anemia, unspecified (principal); F03.90 Unspecified dementia, unspecified severity, without behavioral disturbance, psychotic disturbance, mood disturbance, and anxiety